=== PATIENT | female | born 1990 | race Caucasian/White ===

== ENCOUNTER 2017-12-01 17:06 | Emergency (ER) | payer SELFPAY ==
[~2017-12-01] VITALS: Ht 168.9 cm; Wt 81.2 kg
[~2017-12-01 17:06] MED LIST: HUMALOG100 UNIT/1 SC; JARDIANCE PO; LANTUS 3ML100 UNITS/ SC; LANTUS SQ; METFORMIN HCL500 MG PO
[2017-12-01] MEDS ORDERED: SODIUM CHLORIDE 0.9% 1000ML 1,000 ML IV STA (17:17)
[2017-12-01] MEDS ORDERED: HYDROCODONE/APAP 7.5MG-325MG 1 EA TAB PO ONE (17:30)
[2017-12-01] MEDS ORDERED: FAMOTIDINE 20 MG/2 ML VIAL IV ONE (17:30)
[2017-12-01] MEDS ORDERED: PROMETHAZINE 25MG/ NS 50ML (IV) IV ONE (17:30)
[2017-12-01] MEDS ORDERED: KETOROLAC TROMETHAMINE 30 MG/ML VIAL IV ONE (17:30)
--- NOTE | 2017-12-01 18:02 | Diagnostic Imaging Report ---
History: Photophobia. Headaches, neck pain Comparison studies: None Technique: Axial images were obtained from the skull base to the vertex. Coronal and sagittal reconstructions obtained from the axial data. Findings: Scalp/skull: No abnormalities. No fractures, blastic or lytic lesions. Extra-axial spaces: No masses. No fluid collections. Brain sulci: Appropriate for age. Ventricles: Normal in size and configuration. No hydrocephalus. Parenchyma: No abnormal densities. No masses, hemorrhage, acute or chronic cortical vascular insults. Sellar/suprasellar region: No abnormalities Craniocervical junction: Patent foramen magnum. No Chiari one malformation. IMPRESSION: No abnormalities . Signed by: DR Andrea Chiang M.D. on 12/01/2017 5:59 PM
[2017-12-01 18:03] LABS: BASOPHILS % 0.3 % (0.0-1.0); EOSINOPHILS # (AUTO) 0.2 (0.0-0.4); HEMATOCRIT 39.4 % (34.2-44.1); HEMOGLOBIN 13.8 g/dL (12.0-16.0); LYMPHOCYTES # (AUTO) 1.9 (1.0-3.2); MEAN CORPUSCULAR HEMOGLOBIN 32.4 pg (28-32); MEAN CORPUSCULAR VOLUME 92.5 fL (81-99); MONOCYTES # (AUTO) 0.6 (0.2-0.8); MONOCYTES % 5.2 % (4.4-11.3); NEUTROPHILS # (AUTO) 7.9 (2.1-6.9); NEUTROPHILS % 74.2 % (38.7-80.0); PLATELET COUNT 253 x10e3/uL (140-360); RED BLOOD COUNT 4.26 x10e6/uL (3.6-5.1); RED CELL DISTRIBUTION WIDTH 11.9 % (11.7-14.4)
[2017-12-01 18:21] LABS: ALANINE AMINOTRANSFERASE 15 IU/L (0-55); ALBUMIN 3.9 g/dL (3.5-5.0); ALBUMIN/GLOBULIN RATIO 1.3 (0.8-2.0); ALKALINE PHOSPHATASE 67 IU/L (40-150); ANION GAP 14.9 mmol/L (8-16); BLOOD UREA NITROGEN 7 mg/dL (7-26); BUN/CREATININE RATIO 10 (6-25); CALCIUM 9.4 mg/dL (8.4-10.2); CARBON DIOXIDE 22 mmol/L (22-29); CHLORIDE 106 mmol/L (98-107); CREATININE, SERUM 0.68 mg/dL (0.57-1.11); EST GLOMERULAR FILTRATION RATE > 60 ML/MIN (60-); GLUCOSE 162 mg/dL (74-118); POTASSIUM 3.9 mmol/L (3.5-5.1); SODIUM 139 mmol/L (136-145)
[2017-12-01 19:17] LABS: BILIRUBIN,URINE NEGATIVE (NEGATIVE); CLARITY,URINE SL CLOUDY (CLEAR); COLOR,URINE YELLOW (YELLOW); KETONES,URINE 1+ (NEGATIVE); LEUKOCYTE ESTERASE ,URINE TRACE (NEGATIVE); NITRITE,URINE NEGATIVE (NEGATIVE); PROTEIN,URINE DIPSTICK NEGATIVE (NEGATIVE); URINE UROBILINOGEN 0.2 mg/dL (0.2 - 1)
[2017-12-01 19:28] LABS: BACTERIA,URINE MODERATE /HPF; EPITHELIAL CELLS,URINE MANY /LPF; MUCUS,URINE MODERATE (RARE)
[2017-12-01] MEDS ORDERED: CEFTRIAXONE SOD 1 GM VIAL IV ONE (20:00)
[2017-12-01 20:03] VITALS: BP 108/64
== END 2017-12-01 20:13 | disposition home or self-care (01) ==
LOC: ER 17:06
DX: G44.211 Episodic tension-type headache, intractable (principal); R11.0 Nausea; K52.9 Noninfective gastroenteritis and colitis, unspecified; N30.90 Cystitis, unspecified without hematuria; E10.9 Type 1 diabetes mellitus without complications; E78.5 Hyperlipidemia, unspecified; K86.9 Disease of pancreas, unspecified
CPT/HCPCS: 36415; 70450; 80053; 81001; 84702; 85025; 99284; J0696; J1885; J2550; J7030

== ENCOUNTER 2018-07-22 19:43 | Emergency (ER) | payer BC, OTHER ==
[~2018-07-22] VITALS: Ht 167.6 cm; Wt 84.9 kg
--- OUTSIDE RECORDS SUMMARY | 2018-07-22 19:46 | XMS REPORT ---
Author Author Admin, [place] Organization [facility] Address [address] [place] [id number] Phone Allergies, Adverse Reactions, Alerts Allergy Name Reaction Description Start Date Severity Status Provider Allergies Unknown Conditions or Problems Problem Name Problem Code Onset Date Status Entry Date Provider Comment Standard Description Annotate Problems Unknown Medication List Medication Instructions Start Date Stop Date Generic Name NDC Status Provider Patient Instruction Drug Treatment Unknown - unknown
--- OUTSIDE RECORDS SUMMARY | 2018-07-22 19:46 | XMS REPORT ---
Author [facility] Address Unknown Phone Unavailable Care Team Providers Care Conveyor Loader Name Role Phone Lina SALGADO Unavailable Unavailable Payers Payer Name Policy Type Policy Number Effective Date Expiration Date Problems This patient has no known problems. Allergies, Adverse Reactions, Alerts Allergy Name Allergy Type Status Severity Reaction(s) Onset Date Inactive Date Treating Clinician Comments No Known Allergies DA Active U 2013-07-26 00:00:00 Medications This patient has no known medications. Results Test Description Test Time Test Comments Text Results Atomic Results Result Comments CT BRAIN WO 2017-12-01 17:57:00 [place] [address] Patient Name: MARY JO PORTILLO MR #: [id number] : 1990 Age/Sex: 27/F Req #: [id number] Adm Physician: Ordered by: GABRIELLA CASTORENA MD Report #: [id number] Location: ER Room/Bed: Procedure: [id number] CT/CT BRAIN WO Exam Date: 12/01/17 Exam Time: 1726 REPORT STATUS: Signed ADDENDUM #1 Dose modulation, iterative reconstruction, and/or weight based adjustment of the mA/kV was utilized to reduce the radiation dose to as low as reasonably achievable. IMPRESSION: No abnormalities . Signed by: DR Andrea Chiang M.D. on 12/30/2017 12:17 PM ORIGINAL REPORT History: Photophobia. Headaches, neck pain Comparison studies: None Technique: Axial images were obtained from the skull base to the vertex. Coronal and sagittal reconstructions obtained from the axial data. Findings: Scalp/skull: No abnormalities. No fractures, blastic or lytic lesions. Extra-axial spaces: No masses. No fluid collections. Brain sulci: Appropriate for age. Ventricles: Normal in size and configuration. No hydrocephalus. Parenchyma: No abnormal densities. No masses, hemorrhage, acute or chronic cortical vascular insults. Sellar/suprasellar region: No abnormalities Craniocervical junction: Patent foramen magnum. No Chiari one malformation. IMPRESSION: No abnormalities . Signed by: DR Andrea Chiang M.D. on 12/01/2017 5:59 PM Dictated By: ANDREA YUSUF MD [id number] Transcribed By: GIGI on 12/01/17 [id number] COPY TO: GABRIELLA CASTORENA MD
[2018-07-22] MEDS ORDERED: OXYCODONE-ACET1 EAC1 PO (20:14)
[2018-07-22 21:23] VITALS: BP 114/72
== END 2018-07-22 20:43 | disposition home or self-care (01) ==
LOC: FSED 19:43
DX: L02.31 Cutaneous abscess of buttock (principal); E11.9 Type 2 diabetes mellitus without complications; F17.210 Nicotine dependence, cigarettes, uncomplicated
CPT/HCPCS: 99282

== ENCOUNTER 2019-10-12 19:26 | Emergency (ER) | payer BC, OTHER ==
[~2019-10-12] VITALS: Ht 167.6 cm; Wt 84.8 kg
[~2019-10-12 19:26] MED LIST changes: +OXYCODONE-ACET1 EAC1 PO
--- OUTSIDE RECORDS SUMMARY | 2019-10-12 19:28 | XMS REPORT | Clinical Summary ---
Author Author [facility] Address Unknown Phone Unavailable Care Team Providers Care Energy Consultant Name Role Phone Brooklyn Salamanca MD PCP Allergies No Known Allergies Medications End Date Status Medication Sig Dispensed Refills Start Date Active meloxicam (MOBIC) 15 mg Take 1 tablet 10 tablet 0 tablet (15 mg total) 9 by mouth daily as needed for mild pain for up to 10 doses. Active insulin GLARGINE (LANTUS 40-52 units 0 04/06 SOLOSTAR U-100 INSULIN) at bedtime 8 100 unit/mL injection (pen) Active insulin lispro (HumaLOG as directed 0 KwikPen Insulin) 100 sliding scale 9 unit/mL injection pen Active oxyCODone-acetaminophen 1 tablet as 0 (PERCOCET) 10-325 mg per needed 9 tablet Active clonAZEPAM (KlonoPIN) 1 1 tablet as 0 MG tablet needed 9 12/30/2018 clindamycin (CLEOCIN HCL) Take 1 40 capsule 0 300 MG capsule capsule (300 9 mg total) by mouth 4 (four) times a day for 10 days. 12/23/2018 acetaminophen-codeine Take 1 tablet 10 tablet 0 (TYLENOL WITH CODEINE #3) by mouth 9 300-30 mg per tablet every 6 (six) hours as needed for moderate pain for up to 10 doses. 03/14/2019 acetaminophen-codeine Take 1-2 6 tablet 0 11/0 (TYLENOL WITH CODEINE #3) tablets by 9 300-30 mg per mouth every 6 tabletIndications: acute (six) hours pain as needed for moderate pain for up to 2 days .Acute Pain. 04/11/2019 benzonatate (TESSALON) Take 1 21 capsule 0 11/ 08/201 100 MG capsule capsule (100 9 mg total) by mouth every 8 (eight) hours for 30 days. Active Problems Not on file Encounters Care Team Description Date Type Specialty Gudelia Murray MD Lumbar back pain (Primary Dx) 03/12/2019 Emergency Emergency Medicine Vini Irvin, Conor Mills MD Abscess of left groin (Primary Dx) 12/19/2018 Emergency Emergency Medicine - 12/20/2018 after 10/11/2018 Family History Medical History Relation Name Comments Diabetes Mother Relation Name Status Comments Mother Social History Date Tobacco Use Types Packs/Day Years Used Heavy Tobacco Smoker Smokeless Tobacco: Never Used Drinks/Week oz/Week Comments Alcohol Use socially Yes Sex Assigned at Date Recorded Not on file Industry Job Start Date Occupation Not on file Not on file Not on file Travel End Travel History Travel Start No recent travel history available. Last Filed Vital Signs Reading Time Taken Comments Vital Sign 107/66 03/12/2019 9:29 PM PHOTOGRAPHIC ENGINEER Blood Pressure 115 03/12/2019 9:29 PM PHOTOGRAPHIC ENGINEER Pulse 37.3 C (99.2 F) 03/12/2019 9:29 PM PHOTOGRAPHIC ENGINEER Temperature 18 03/12/2019 9:29 PM PHOTOGRAPHIC ENGINEER Respiratory Rate 97% 03/12/2019 9:29 PM PHOTOGRAPHIC ENGINEER Oxygen Saturation - - Inhaled Oxygen Concentration 87.1 kg (192 lb) 03/12/2019 7:12 PM PHOTOGRAPHIC ENGINEER Weight 167.6 cm (5' 6") 03/12/2019 7:12 PM PHOTOGRAPHIC ENGINEER Height 30.99 03/12/2019 7:12 PM PHOTOGRAPHIC ENGINEER Body Mass Index Plan of Treatment Not on file Procedures Comments Procedure Name Priority Date/Time Associated Diag nosis ED REFERRAL TO [facility] Routine 03/12/2019 [facility] 9:26 PM PHOTOGRAPHIC ENGINEER ORGANIZATION [place] DRAIN SKIN ABSCESS Routine 12/20/2018 SIMPLE 1:45 AM CDT ESTIMATED GFR STAT 12/20/2018 12:35 AM CDT HCG QUALITATIVE, SERUM STAT 12/20/2018 SCREEN 12:35 AM CDT COMPREHENSIVE METABOLIC STAT 12/20/2018 PANEL 12:35 AM CDT HC COMPLETE BLD COUNT STAT 12/20/2018 W/AUTO DIFF 12:35 AM CDT after 10/11/2018 Results * I&D/Aspiration/Amputation (12/20/2018 1:45 AM CDT) Narrative Performed At Vini Irvin NP-C 12/22/19 19 1:40 AM I&D/Aspiration/Amputation Performed by: Vini Irvin NP-C Authorized by: Vini Irvin NP- C Consent: Consent obtained: Verbal Consent given by: Patient Risks discussed: Bleeding, damage t o other organs, infection, incomplete drainage and pain Alternatives discussed: No treatmen t and delayed treatment Location: Type: Abscess Location: left groin. Pre-procedure details: Skin preparation: Betadine Anesthesia (see MAR for exact dosages): Anesthesia method: Local infiltrati on Local anesthetic: Lidocaine 1% WITH epi (3ml) Procedure details: Complexity: Simple Needle aspiration: No Incision types: Single straight Size (cm): 1 Scalpel blade: 11 Wound management: Irrigated with sa line and probed and deloculated Drainage: Bloody and purulent Drainage amount: Moderate Wound treatment: Wound left open Packing materials: None Post-procedure details: Patient tolerance of procedure: Herber erated well, no immediate complications Comments: 1cm cutaneous incision to two absces s with moderate bloody, purulent drainage 2cm abscess, scant bloody, pur ulent drainage 1cm abscess. Kaylin Cruz RN and Nael Storey was funeral pre arrangement counselor e and entered the room before provider, was with the provider through out the entire procedure and remained in room after provider left e room after exam was completed. * Estimated GFR (12/20/2018 12:35 AM CDT) Estimated GFR >=90 mL/min/1.73 m2 [facility] Comment: [facility] Interpretation G1 >=90 Normal or high G2 60-89 Mildly decreased G3a 45-59 Mildly to moderately decreased G3b 30-44 Moderately to severely decreased G4 15-29 Severely decreased G5 <15 Kidney failure The eGFR was calculated using the Chronic Kidney Disease Epidemiology Collaboration (CKD-EPI) equation. Interpretation is based on recommendations of the National Kidney Foundation-Kidney Disease Outcomes Quality Initiative (NKF-KDOQI) published in 2014. Specimen Plasma specimen Performing Organization Address City/State/Zipcode [place] [address] [place], [place] [address] PATHOLOGY AND GENOMIC MEDICINE [facility] [address] [place] [address] [facility] * CBC with platelet and differential (12/20/2018 12:35 AM CDT) WBC 12.27 (H) 4.50 - 11.00 k/uL [facility] RBC 3.98 (L) 4.20 - 5.50 m/uL [facility] HGB 12.7 12.0 - 16.0 g/dL [facility] HCT 38.9 37.0 - 47.0 % [facility] MCV 97.7 82.0 - 100.0 fL [facility] MCH 31.9 27.0 - 34.0 pg [facility] MCHC 32.6 31.0 - 37.0 g/dL [facility] RDW - SD 44.1 37.0 - 55.0 fL [facility] MPV 9.1 8.8 - 13.2 fL [facility] Platelet count 298 150 - 400 k/uL [facility] Nucleated RBC 0.00 /100 WBC [facility] Neutrophils 53.9 39.0 - 69.0 % [facility] Lymphocytes 37.8 25.0 - 45.0 % [facility] Monocytes 5.4 0.0 - 10.0 % [facility] Eosinophils 2.4 0.0 - 5.0 % [facility] Basophils 0.2 0.0 - 1.0 % [facility] Specimen Blood Performing Organization Address City/State/Zipcode Ph one Number [facility] [place] [address] [place], [place] [address] PATHOLOGY AND GENOMIC MEDICINE [facility] [address] [place] [address] [facility] * hCG qualitative, serum screen (12/20/2018 12:35 AM CDT) hCG Negative [facility] Specimen Blood Performing Organization Address City/State/Zipcode Ph one Number [facility] [place] [address] [place], [place] [address] PATHOLOGY AND GENOMIC MEDICINE [facility] [address] [place] [address] [facility] * Comprehensive metabolic panel (12/20/2018 12:35 AM CDT) Sodium 139 135 - 148 mEq/L [facility] Potassium 3.7 3.5 - 5.0 mEq/L [facility] Chloride 100 98 - 112 mEq/L [facility] CO2 23 (L) 24 - 31 mEq/L [facility] Anion gap 16@ANIO (H) 7 - 15 mEq/L [facility] BUN 6 6 - 20 mg/dL [facility] Creatinine 0.50 0.50 - 0.90 mg/dL [facility] Glucose 202 (H) 65 - 99 mg/dL [facility] Calcium 9.8 8.3 - 10.2 mg/dL [facility] Protein 7.3 6.3 - 8.3 g/dL [facility] Comment: [facility] 4.6-7.0 g/dL 1 week 4.4-7.6 g/dL 7 months-1year 5.1-7.3 g/dL 1-2 years 5.6-7.5 g/dL >3 years 6.0-8.0 g/dL 18-150 6.3-8.3 g/dL Albumin 4.7 3.5 - 5.0 g/dL [facility] A/G ratio 1.8 0.7 - 3.8 [facility] Alkaline 102 35 - 104 U/L [facility] phosphatase [facility] AST 14 10 - 35 U/L [facility] ALT 23 5 - 50 U/L [facility] Total bilirubin <0.2 0.0 - 1.2 mg/dL [facility] Specimen Plasma specimen Performing Organization Address City/State/Zipcode [place] [facility] 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
--- OUTSIDE RECORDS SUMMARY | 2019-10-12 19:29 | XMS REPORT ---
Author Author Admin, [place] Organization [facility] Address [address] [place] [address] Phone Allergies, Adverse Reactions, Alerts Allergy Name Reaction Description Start Date Severity Status Pr ovider No Known Allergies Lillian Choe MA Conditions or Problems Problem Name Problem Code Onset Date Status Entry Date Provider Comment Standard Description Annotate Health screening V70.0 Active Caitlin Reyna RN Routine general medical examination at a health care facility Candidal vaginitis 112.1 Active Castro Sepulveda MD Candidiasis of vulva and vagina Diabetes mellitus 250.00 Active Castro Sepulveda MD Diabetes mellitus without mention of complication, type II or unspecified type, not stated as uncontrolled Std screening V74.5 Active Castro Sepulveda MD Screening examination for venereal disease Tobacco use Active Castro Sepulveda MD Tobacco use disorder Medication List Medication Instructions Start Date Stop Date Generic Name NDC Status Provider Patient Instruction VALTREX 500 MG ORAL TABLET 1 pill twice a day for 3 days VALACYCLOVIR HCL 07941547990 Active Castro Sepulveda MD Active FLAGYL 500 MG ORAL TABLET 1 tab by mouth twice a day for 7 days 201 12/13/04 METRONIDAZOLE 01463994079 Active Castro Sepulveda MD Active DIFLUCAN 150 MG ORAL TABLET 1 by mouth FLUCONAZOL E 38448379906 Yaya Sepulveda MD Active INSULIN SYRINGE 28G X 1/2" 0.5 ML IN SULIN SYRINGE-NEEDLE U-100 70989736154 Active Castro Sepulveda MD Active Vital Signs Date Name Value Unit Range Description blood pressure, diastolic 74 mm[Hg] BP brothers blood pressure, systolic 112 mm[Hg] BP sys height E&M 67 [in_us] Bdy height pulse rate E&M 77 /min Heart rate temperature E&M 98.1 [degF] Body temp erature weight E&M 187 [lb_av] Weight Measure d Diagnostic Results Date Name Value Unit Range Description Lab Report: Ct, Ng, Trich vag by COOPER - M icrobiology Neisseria gonorrhoeae DNA probe Negative Nega tive Lab Report: HSV 1 and 2-Spec Ab, IgG w/R fx, RPR, Rfx Qn RPR/Confirm TP, ... - Serology HERPES SIMPLEX VIRUS TYPE 1 AB.IGG (PT; SER; QN; ) 5.3 4 index 0.00-0.90 Lab Report: hCG,Beta Subunit, Qnt, Serum - Chemistry human chorionic gonadotropin, total, serum <1 mIU/mL m[iU ]/mL Lab Report: Ct, Ng, Trich vag by COOPER - L ab chlamydia DNA probe Negative Negative Nurse Visit: Nurse Visit - Chemistry beta HCG, urine, semiquantitative negative Lab Report: HSV 1 and 2-Spec Ab, IgG w/R fx, RPR, Rfx Qn RPR/Confirm TP, ... - Serology rapid plasma reagin antibody, serum Non Reactive Non Reactive Lab Report: Ct/GC [facility], Pharyngeal - Micr obiology Neisseria gonorrhoeae, throat culture Negative Negative Encounters Date Encounter Provider Code Facility 15:54:23 CDT Est Patient Nurse - Only Visit - 24260 Chelle Reyna RN CPT-92969 [facility] Adult Medicine 10:37:58 CDT Ofc Vst, New Level II Castro Sepulveda MD CPT-992 02 [facility] Adult Medicine
--- OUTSIDE RECORDS SUMMARY | 2019-10-12 19:29 | XMS REPORT | Summary of Care ---
Author Author [facility] - Health Organization [facility] - Health Address Unknown Phone Unavailable Care Team Providers Care Tap Puller Name Role Phone Pcp, Patient Does Not Have A PCP [phone] Reason for Visit * Reason Comments Abscess Encounter Details Care Team Description Date Type Department Shaun Courtney [address] [facility] [id number] [place], [place] [address] Perineal abscess (Primary Dx) 12/24/2018 Office Visit [facility], [address], [facility] [address] [place] [address] Allergies No Known Allergiesdocumented as of this encounter (statuses as of 12/30/2018) Medications End Date Status Medication Sig Dispensed Refills Start Date Active LANTUS U-100 INSULIN 100 INJECT 50 1 08/18 unit/mL solution UNITS SQ D 9 Active HUMALOG U-100 INSULIN 100 INJECT UP TO 1 08/03 unit/mL solution 20 UNITS SQ 9 TID Active metroNIDAZOLE 500 mg Take 1 tablet 14 tablet 0 tabletIndications: by mouth 2 9 Vaginitis and (two) times vulvovaginitis daily. Active clotrimazole-betamethason Apply to 15 g 0 e creamIndications: area(s) 2 9 Vaginal irritation (two) times daily as needed for Itching. Active oxyCODONE-acetaminophen TAKE 1 TABLET 0 10-325 mg per tablet BY MOUTH 9 EVERY FOUR HOURS NEEDED Active fluconazole 150 mg tablet TK 1 TS PO Q 0 / 72 H 9 Active clonazePAM 1 mg tablet TAKE 1 TABLET 0 08/31/ 01 BY MOUTH 9 TWICE DAILY NEEDED Active FREESTYLE TEST strip USE TO CHECK 3 BLOOD SUGAR 9 QID Active CHANTIX STARTING MONTH 0 BOX 0.5 mg (11)- 1 mg 9 (42) tablet Active CLINDAMYCIN HCL ORAL Take by 0 mouth. documented as of this encounter (statuses as of 12/30/2018) Active Problems Problem Noted Date Obesity (BMI 30-39.9) 12/24/2018 documented as of this encounter (statuses as of 12/30/2018) Social History Date Tobacco Use Types Packs/Day Years Used Current Every Day Smoker Cigarettes 0.5 Smokeless Tobacco: Never Used Drinks/Week oz/Week Comments Alcohol Use No Sex Assigned at Date Recorded Not on file Industry Job Start Date Occupation Not on file Not on file Not on file Travel End Travel History Travel Start No recent travel history available. documented as of this encounter Last Filed Vital Signs Reading Time Taken Comments Vital Sign 100/65 12/24/2018 9:45 AM CDT Blood Pressure - - Pulse - - Temperature - - Respiratory Rate - - Oxygen Saturation - - Inhaled Oxygen Concentration 91.2 kg (201 lb) 12/24/2018 9:45 AM CDT Weight 170.2 cm (5' 7") 12/24/2018 9:45 AM CDT Height 31.48 12/24/2018 9:45 AM CDT Body Mass Index documented in this encounter Progress Notes * Naina Tai MA - 12/24/2018 9:30 AM CDT Abcess onset past Friday between butt cheek and groin underneath skin PT went to [facility] ER and lanced above abcess and only drained bloody discharge PT reports was not compliant when being drained , cried and moved a lot PT declines on lancing today and is requesting for meds prior PT taking antibiotics * Shaun Courtney - 12/24/2018 9:30 AM CDT Chief complaint: Chief Complaint Patient presents with Abscess Natali Garcia is a 28 year old female who presents complaining of a vaginal abcess status post ER visit 12/19/2018 where the abcess was lanced. Patient decli ronal lancing today as she had a bad experience with pain during previous lancing in the ER. Histories OB History Para Term AB Living 1 1 1 SAB TAB Ectopic Multiple Live Births 1 # Outcome Date GA Lbr James/2nd Weight Sex Delivery Anes PTL Lv 1 Para 04/28/07 F VAGINAL KENYON Past Medical History: Diagnosis Date Abscess 07/2018 Diabetes mellitus Genital herpes Pap smear abnormality of cervix Family History Problem Relation Age of Onset Diabetes Mother Ovarian Cancer Maternal Grandmother Diabetes Maternal Grandmother Breast Cancer Paternal Grandmother Colon Cancer NoFHx Uterine Cancer NoFHx Depression NoFHx Family Status Relation Name Status Mo (Not Specified) MGMo (Not Specified) PGMo (Not Specified) NoFHx (Not Specified) Past Surgical History: Procedure Laterality Date APPENDECTOMY BACK SURGERY COLON SURGERY Social History Socioeconomic History Marital status: Single Spouse name: Not on file Number of children: Not on file Years of education: Not on file Highest education level: Not on file Occupational History Not on file Social Needs Financial resource strain: Not on file Food insecurity: Worry: Not on file Inability: Not on file Transportation needs: Medical: Not on file Non-medical: Not on file Tobacco Use Smoking status: Current Every Day Smoker Packs/day: 0.50 Types: Cigarettes Smokeless tobacco: Never Used Substance and Sexual Activity Alcohol use: No Drug use: No Sexual activity: Never Partners: Male control/protection: None Comment: BUDDY- Geovanna Lifestyle Physical activity: Days per week: Not on file Minutes per session: Not on file Stress: Not on file Relationships Social connections: Talks on phone: Not on file Gets together: Not on file Attends buddhist service: Not on file Active member of club or organization: Not on file Attends meetings of clubs or organizations: Not on file Relationship status: Not on file Intimate partner violence: Fear of current or ex partner: Not on file Emotionally abused: Not on file Physically abused: Not on file Forced sexual activity: Not on file Other Topics Concern Not on file Social History Narrative FEELS SAFE IN HOME ENVIRONMENT Social History Substance and Sexual Activity Sexual Activity Never Partners: Male control/protection: None Comment: BUDDY- Geovanna Labs No new labs Radiology No new radiology. Allergies Natali has No Known Allergies. Medications Natali has a current medication list which includes the following prescription(s) : clindamycin hcl, freestyle test, oxycodone-acetaminophen, humalog u-100 insuli n, lantus u-100 insulin, chantix starting month box, clonazepam, fluconazole, cl otrimazole-betamethasone, and metronidazole. Review of Systems Constitutional: Negative. HENT: Negative. Eyes: Negative. Respiratory: Negative. Breasts: Negative. Cardiovascular: Negative. Gastrointestinal: Negative. Genitourinary: Positive for genital sores. Musculoskeletal: Negative. Skin: Negative. Neurological: Negative. Psychiatric/Behavioral: Negative. Endocrine: Endocrine negative BP 100/65 | Ht 5' 7" (1.702 m) | Wt 201 lb (91.2 kg) | BMI 31.48 kg/m Pregravid BMI: Could not be calculated Physical Exam Vitals reviewed. Constitutional: She is oriented to person, place, and time. She appears well-dev eloped, well-nourished and well-groomed. Her body habitus is normal. She has no deformities. Neuro/Psychiatric: She has a normal mood and affect. She is oriented to person, place, and time. Anus/perineum: Abnormal perineum. 3 cm left perineal abcess tender to touch. Assessment/Plan Perineal abscess (primary encounter diagnosis) Comment: Exam shows 3 cm left perineal abcess tender to touch. Findings explained to taco ent. Patient declines lancing today. Requested procedure to be done under genera l anesthesia. Patient sent to ER. This visit involved counseling and coordination of care that comprised more than 50% of the visit time. I spent 15 minute(s) total time with the patient. Of t hat time, 5 minute(s) was spent on history and exam, and 10 minute(s) was spent counseling the patient regarding risks and benefits of treatment, treatment opti ons and prevention. Misa Dewitt , am scribing for, and in the presence of, Shaun duvall MD who performed the services described here-in. Misa Golden, December 24, 2018, 7:58 AM Shaun Dewitt MD, personally performed the services described in this doc umentation , as scribed in my presence and it is both accurate and complete. documented in this encounter Plan of Treatment Health Maintenance Due Date Last Done Comments PNEUMOCOCCAL 0-64 YEARS 1994 COMBINED SERIES (1 of 1 - PPSV23) VARICELLA VACCINES (1 of 2001 2 - 13+ 2-dose series) DTaP,Tdap,and Td Vaccines 2007 (1 - Tdap) INFLUENZA VACCINE (#1) 2019 PAP SMEAR 09/25/2021 09/25/2018 documented as of this encounter Results Not on filedocumented in this encounter Visit Diagnoses Diagnosis Perineal abscess - Primary Cellulitis and abscess of trunk documented in this encounter Insurance Type Payer Benefit Subscriber ID Effective Phone Address Plan / Dates Group Medicaid COMMUNITY HEALTH CHOICE - COMMUNITY xxxxxxxxx 2018-P [address] MANAGED MEDICAID HEALTH resent [id number] [place], [place] [address] PPO/POS BCBS OF [place] BCBS OF [id number] 2018-P [phone] [address] [facility] [address] [place] [address] documented as of this encounter
--- OUTSIDE RECORDS SUMMARY | 2019-10-12 19:29 | XMS REPORT | Summary of Care ---
Author Author [facility] - Health Organization [facility] - Health Address Unknown Phone Unavailable Care Team Providers Care Pocket Closer Name Role Phone Pcp, Patient Does Not Have A PCP [phone] Reason for Visit * Reason Comments Abscess * Auth/Cert Referred By Contact Referred To Contact Status Reason Specialty Diagnoses / Procedures [facility] Emergency Dept [address] [place] [address] Emergency Medicine Encounter Details Care Team Description Date Type Department Susanne Sorenson, KYLIE [address] [facility] [address] [place] [address] Perineal abscess, superficial (Primary D x) 12/24/2018 Emergency [facility] [address] [place] [address] Allergies No Known Allergiesdocumented as of this encounter (statuses as of 12/24/2018) Medications End Date Status Medication Sig Dispensed [...] 1 mg tablet TAKE 1 TABLET 0 01 BY MOUTH 9 TWICE DAILY NEEDED Active FREESTYLE TEST strip USE TO CHECK 3 BLOOD SUGAR 9 QID Active CHANTIX STARTING MONTH 0 BOX 0.5 mg (11)- 1 mg 9 (42) tablet Active CLINDAMYCIN HCL ORAL Take by 0 mouth. 01/03/2019 Active sulfamethoxazole-trimetho Take 1 tablet 20 tablet 0 prim 800-160 mg per by mouth 2 9 tabletIndications: (two) times Perineal abscess, daily for 10 superficial days. Active traMADol 50 mg Take 1 tablet 15 tablet 0 tabletIndications: by mouth 9 Perineal abscess, every 6 (six) superficial hours as needed for Pain (scale 4-6). documented as of this encounter (statuses as of 12/24/2018) Active Problems Problem Noted Date Obesity (BMI 30-39.9) 12/24/2018 documented as of this encounter (statuses as of 12/24/2018) Social History Date Tobacco Use Types Packs/Day [...] Signs Reading Time Taken Comments Vital Sign 102/68 12/24/2018 2:15 PM CDT Blood Pressure 80 12/24/2018 2:15 PM CDT Pulse 36.8 C (98.2 F) 12/24/2018 11:47 AM CDT Temperature 16 12/24/2018 2:15 PM CDT Respiratory Rate 98% 12/24/2018 2:21 PM CDT Oxygen Saturation - - Inhaled Oxygen Concentration 91.2 kg (201 lb) 12/24/2018 11:47 AM CDT Weight 170.2 cm (5' 7") 12/24/2018 11:47 AM CDT Height 31.48 12/24/2018 11:47 AM CDT Body Mass Index documented in this encounter Discharge Instructions * Attachments The following attachments cannot be sent through Care Everywhere.* Abscess, Antibiotic Treatment Only (Prydeinig) * Abscess, Incision And Drainage (Prydeinig) documented in this encounter Plan of Treatment Date/Time Name Type Priority Associated Diag noses 12/24/2018 11:54 AM CDT I and D PROCEDURES Routine Perineal absces s, superficial Health Maintenance Due Date Last Done Comments PNEUMOCOCCAL 0-64 YEARS 1994 COMBINED SERIES (1 of 1 - PPSV23) VARICELLA VACCINES (1 of 2001 2 - 13+ 2-dose series) DTaP,Tdap,and Td Vaccines 2007 (1 - Tdap) INFLUENZA VACCINE (#1) 2019 PAP SMEAR 09/25/2021 09/25/2018 documented as of this encounter Procedures Comments Procedure Name Priority Date/Time Associated Diag nosis INCISION AND DRAINAGE Routine 12/24/2018 Perineal abscess, 11:54 AM CDT superficial documented in this encounter Results Not on filedocumented in this encounter Visit Diagnoses Diagnosis Perineal abscess, superficial - Primary Cellulitis and abscess of trunk documented in this encounter Administered Medications Action Date Dose Rate Site Medication Order MAR Action 12/24/2018 2:00 PM CDT 10 mL lidocaine-epinephrine (XYLOCAINE WITH Given by EPINEPHRINE) 1 %-1:100,000 injection 10 Provider mL 10 mL, Intradermal, ONCE, 1 dose, [facility] 12/24/18 at 1400, CYRUS 12/24/2018 1:35 PM CDT 4 mg morpHINE injection 4 mg Given 4 mg, Slow IV Push, ONCE, 1 dose, [facility] 12/24/18 at 1400, STAT documented in this encounter Insurance Type Payer Benefit Subscriber ID Effective Phone Address Plan / Dates Group Medicaid COMMUNITY HEALTH CHOICE - COMMUNITY xxxxxxxxx 2018-P [address] MANAGED MEDICAID HEALTH resent [id number] [place], [place] [address] PPO/POS BCBS OF [place] BCBS OF [id number] 2018-P [phone] [address] [facility] [id number] [place] [address] documented as of this encounter
--- OUTSIDE RECORDS SUMMARY | 2019-10-12 19:29 | XMS REPORT | Summary of Care ---
Author Author [facility] - Health Organization [facility] - Health Address Unknown Phone Unavailable Care Team Providers Care Fleet Service Clerk Name Role Phone Pcp, Patient Does Not Have A PCP [phone] Reason for Visit * Reason Comments Abscess Encounter Details Care Team Description Date Type Department Shaun Courtney [address] [facility] [id number] [place], [place] [id number] Perineal abscess (Primary Dx) 12/24/2018 Office Visit [facility], [address], [facility] [address] [place] [address] Allergies No Known Allergiesdocumented as [...] and groin underneath skin PT went to [facility] ER and lanced above abcess and [...] file Gets together: Not on file Attends latter-day service: Not on file Active member of [...] 2018-P [address] MANAGED MEDICAID HEALTH resent [id number] [place], [place] [address] PPO/POS BCBS OF [place] BCBS OF [id number] 2018-P [phone] [address] [facility] [id number] [place] [address] documented as of this encounter
--- OUTSIDE RECORDS SUMMARY | 2019-10-12 19:29 | XMS REPORT | Continuity of Care Document ---
Author Author [facility] t Organization [facility] Address [address] [place] [address] Phone Unavailable Care Team Providers Care Commercial Property Administrator Name Role Phone Gonzalez HENSLEY MD PCP Terri DOWD, Duglas Galeas Attphys [phone] Shaun Courtney Attphys Albaro PRIVATE SECTOR EXECUTIVE-C, Sohail Martini Attphys Mara DOWD, Birgit Perdomo Attphys Lina SALGADO Attphys Unavailable Payers Payer Name Policy Type Policy Number Effective Date Expiration Date [facility] [id number] xxxxxxxxx 2018 [id number] 2016 00:00:00 [facility] Problems Condition Name Condition Details Condition Category Status Onset Date Resolution Date Last Treatment Date Treating Clinician Comments Source Diabetic ketoacidosis DKA (diabetic ketoacidoses) Problem Active [facility] Dehydration Dehydration Problem Active [facility] Allergies, Adverse Reactions, Alerts Allergy Name Allergy Type Status Severity Reaction(s) Onset Date Inacti ve Date Treating Clinician Comments Source No Known Allergies DA Active U 2013-07-26 00:00:00 [facility] Family History Family Member Diagnosis Comments Start Date Stop Date Source Natural mother Diabetes [facility] Social History Social Habit Start Date Stop Date Quantity Comments Source Sex Assigned [facility] Alcohol intake 2019-03-12 00:00:00 2019-03-12 00:00:00 Current drinker of alcohol (finding) Norberto Burnette Alcohol Comment 2019-03-12 00:00:00 2019-03-12 00:00:00 socially Norberto Burnette Smoking Status Start Date Stop Date Source Heavy tobacco smoker 2019-03-12 00:00:00 Norberto Burnette Medications Ordered Medication Name Filled Medication Name Start Date Stop Da te Current Medication? Ordering Clinician Indication Dosage Frequency Signature (SIG) Comments Components Source benzonatate (TESSALON) 100 MG capsule 2019-03-12 00:00 :00 2019-04-11 23:59:00 No 100mg Q8H Take 1 capsule (100 mg total) by mouth every 8 (eight) hours for 30 days. Norberto Burnette acetaminophen-codeine (TYLENOL WITH CODEINE #3) 300-30 mg pe r tablet 2019-03-12 00:00:00 2019-03-14 23:59:00 No acute pain 1{tbl} Q6H Take 1-2 tablets by mouth every 6 (six) hours as needed for moderate pain for up to 2 days .Acute Pain. Norberto Burnette meloxicam (MOBIC) 15 mg tablet 2018-12-20 00:00:00 Yes 15mg Q24H Take 1 tablet (15 mg total) by mouth daily as needed for mild pain for up to 10 doses. Norberto Burnette clindamycin (CLEOCIN HCL) 300 MG capsule 2018-12 00:00:00 2018-12-30 23:59:00 No 300mg Q.25D Take 1 capsule (300 mg total) by mouth 4 (four) times a day for [address] acetaminophen-codeine (TYLENOL WITH CODEINE #3) 300-30 mg pe r tablet 2018-12-20 00:00:00 2018-12-23 23:59:00 No 1{tbl} Q6H Take 1 tablet by mouth every 6 (six) hours as needed for moderate pain for up to 10 doses. Norberto Burnette insulin lispro (HumaLOG KwikPen Insulin) 100 unit/mL injecti on pen 2018-11-18 00:00:00 Yes as directed sliding scale Norberto Burnette oxyCODone-acetaminophen (PERCOCET) 10-325 mg per tablet 2018-09-15 00:00:00 Yes 1 tablet as needed Brijesh Burnette clonAZEPAM (KlonoPIN) 1 MG tablet 2018-08-31 00:00:00 Yes 1 tablet as needed Norberto Burnette insulin GLARGINE (LANTUS SOLOSTAR U-100 INSULIN) 100 unit/mL injection (pen) 2018-04-06 00:00:00 Yes 40-52 units at bed time Norberto Burnette Insulin Glargine (Lantus 3ML Pen) 100 Units/1 Ml Inj I nsulin Glargine (Lantus 3ML Pen) 100 Units/1 Ml Inj Yes 20 Bedtime [facility] Insulin Lispro (Humalog) 100 Unit/1 Ml Cartridge Insul in Lispro (Humalog) 100 Unit/1 Ml Cartridge Yes 8 Three Times Daily With Meals [facility] Oxycodone Hcl/Acetaminophen (Oxycodone-Acetaminophen 5 -325) 1 Each Tablet Oxycodone Hcl/Acetaminophen (Oxycodone-Acetaminophen 5-325) 1 Each Tablet Yes Every 6 Hours as needed for Pain [facility] Jardiance , 10 Mg Oral Jardiance , 10 Mg Oral 2017-01-21 00:00:00 No 10 Daily [facility] Lantus , 1 Sub-Q Lantus , 1 Sub-Q 2017-01-21 00:00:00 No 1 Bedtime [facility] Metformin Hcl 500 Mg Tablet, 1000 Mg Oral Metformin Hc l 500 Mg Tablet, 1000 Mg Oral 2017-01-21 00:00:00 No 1000 Twice A Day [facility] Vital Signs Vital Name Observation Time Observation Value Comments Source Systolic blood pressure 2019-03-12 21:29:00 107 mm[Hg] Norberto Burnette Diastolic blood pressure 2019-03-12 21:29:00 66 mm[Hg] Norberto Burnette Heart rate 2019-03-12 21:29:00 115 /min Norberto Burnette Body temperature 2019-03-12 21:29:00 37.33 Jalyn Nhan Burnette Respiratory rate 2019-03-12 21:29:00 18 /min Nhan Burnette Oxygen saturation in Arterial blood by Pulse oximetry 2018-05 21:29:00 97 /min Norberto Burnette Body height 2019-03-12 19:12:00 167.6 cm Norberto Burnette Body weight 2019-03-12 19:12:00 87.091 kg Norberto Burnette BMI 2019-03-12 19:12:00 30.99 kg/m2 Norberto Burnette Procedures Procedure Date / Time Performed Performing Clinician [facility] REFERRAL TO [facility]O [facility] 2018 21:26:25 Gudelia Murray [place] DRAIN SKIN ABSCESS SIMPLE 2018-12-20 01:45:00 Vini Irvin HC COMPLETE BLD COUNT W/AUTO DIFF 2018-12-20 00:35:00 Shaka Irvin COMPREHENSIVE METABOLIC PANEL 2018-12-20 00:35:00 Vini Irvin HCG QUALITATIVE, SERUM SCREEN 2018-12-20 00:35:00 Vini Irvin ESTIMATED GFR 2018-12-20 00:35:00 Vini Irvin Computed tomography of brain without radiopaque contrast 201 12-09-29 00:00:00 GABRIELLA CASTORENA [facility] Encounters Start Date/Time End Date/Time Encounter Type Admission Type [facility] Care Department Encounter ID Source 2018-12-24 09:38:45 2018-12-24 10:30:04 [facility] [id number] 2018-07-22 19:43:00 2018-07-22 19:43:00 Registered Emergency Room [facility] [id number] [facility] 2017-12-01 17:06:00 2017-12-01 20:13:00 Departed Emergency Room 1 ABDIAZIZ SALGADO [facility] [id number] [facility] Results Test Description Test Time Test Comments Results Result Comments Source I&D/Aspiration/Amputation 2018-12-20 01:45:00 Vini Stroud NP-C 12/21/2018 1:40 AMI&D/Aspiration/AmputationPerformed by: Vini Irvin NP-CAuthorized by: Vini Irvin NP-C Consent: Consent obtained: Verbal Consent given by: Patient Risks discussed: Bleeding, damage to other organs, infection, incomplete drainage and pain Alternatives discussed: No treatment and delayed treatmentLocation: Type: Abscess Location: left groin.Pre-procedure details: Skin preparation: BetadineAnesthesia (see MAR for exact dosages): Anesthesia method: Local infiltration Local anesthetic: Lidocaine 1% WITH epi (3ml)Procedure details: Complexity: Simple Needle aspiration: No Incision types: Single straight Size (cm): 1 Scalpel blade: 11 Wound management: Irrigated with saline and probed and deloculated Drainage: Bloody and purulent Drainage amount: Moderate Wound treatment: Wound left open Packing materials: NonePost-procedure details: Patient tolerance of procedure: Tolerated well, no immediate complicationsComments: 1cm cutaneous incision to two abscess with moderate bloody, purulent drainage 2cm abscess, scant bloody, purulent drainage 1cm abscess. Kaylin Cruz RN and Nael Storey was edger runner and entered the room before provider, was with the provider throughout the entire procedure and remained in room after provider left the room after exam was completed. [facility] Comprehensive metabolic panel 2018-12-20 01:33:46 Test Item Sodium (test code = 2951-2) 139 135- 148 mEq/L Potassium (test code = 2823-3) 3.7 3.5- 5.0 mEq/L Chloride (test code = 2075-0) 100 98- 112 mEq/L CO2 (test code = 8-9) 23 24- 31 mEq/L L Anion gap (test code = 09923-8) 16@ANIO 7- 15 mEq/L H BUN (test code = 3094-0) 6 mg/dL 6-20 Creatinine (test code = 2160-0) 0.50 mg/dL 0.5-0.9 Glucose (test code = 2345-7) 202 mg/dL 65-99 H Calcium (test code = 79940-7) 9.8 mg/dL 8.3-10.2 Protein (test code = 2885-2) 7.3 g/dL 6.3-8.3 Bryan 4.6-7.0 g/dL1 week 4.4-7.6 g/dL7 months-1year 5.1-7.3 g/dL1-2 years 5.6-7.5 g/dL>3 years 6.0-8.0 g/bZ42-791 6.3-8.3 g/dL Albumin (test code = 1751-7) 4.7 g/dL 3.5-5 A/G ratio (test code = 1759-0) 1.8 0.7-3.8 Alkaline phosphatase (test code = 6768-6) 102 U/L 35-104 AST (test code = 1920-8) 14 U/L 10-35 ALT (test code = 1742-6) 23 U/L 5-50 Total bilirubin (test code = 1975-2) <0.2 0-1.2 Lab Interpretation (test code = 00118-6) Abnormal [facility] [id number] 01:33:46* Test Item Value Reference Range Interpretation Comments Estimated GFR (test code = 5488) >=90 mL/min/1.73 m2 Catergory Units InterpretationG1 >=90 Normal or highG2 60-89 Mildly wzhwimyxnX8g 45-59 Mildly to moderately lbwposmamQ6s 30-44 Moderately to severely decreasedG4 15-29 Severely decreasedG5 <15 Kidney failureThe eGFR was calculated using the Chronic Kidney Disease Epidemiology Collaboration (CKD-EPI) equation. Interpretation is based on recommendations of the National Kidney Foundation-Kidney Disease Outcomes Quality Initiative (NKF-KDOQI) published in 2014. [place] [facility] with platelet and wfzozdonzyyq9181-74-79 01:30:24* Test Item Value Reference Range Interpretation Comments WBC (test code = 32853-1) 12.27 4.50- 11.00 k/uL H RBC (test code = 64765-4) 3.98 m/uL 4.2-5.5 L HGB (test code = 718-7) 12.7 g/dL 12-16 HCT (test code = 4544-3) 38.9 % 37-47 MCV (test code = 787-2) 97.7 fL 82-100 MCH (test code = 785-6) 31.9 pg 27-34 MCHC (test code = 786-4) 32.6 g/dL 31-37 RDW - SD (test code = 69126-1) 44.1 fL 37-55 MPV (test code = 02004-5) 9.1 fL 8.8-13.2 Platelet count (test code = 56737-8) 298 150- 400 k/uL Nucleated RBC (test code = 35259-3) 0.00 /100 WBC Neutrophils (test code = 74535-1) 53.9 % 39-69 Lymphocytes (test code = 07182-6) 37.8 % 25-45 Monocytes (test code = 46641-9) 5.4 % 0-10 Eosinophils (test code = 20504-8) 2.4 % 0-5 Basophils (test code = 02757-0) 0.2 % 0-1 Lab Interpretation (test code = 23563-1) Abnormal [facility] qualitative, serum [id number] 01:27:48* Test Item Value Reference Range Interpretation Comments hCG qualitative, serum (test code = 2118-8) Negative [facility] [id number] 19:28:00* Test Item Value Reference Range Interpretation Comments Urine WBC (test code = 5821-4) 6-10 0-5 H [facility] [id number] 19:28:00* Test Item Value Reference Range Interpretation Comments Urine RBC (test code = 52780-0) NONE 0-5 [facility] [id number] 19:28:00* Test Item Value Reference Range Interpretation Comments Urine Bacteria (test code = 74483-9) MODERATE NONE H [facility] Epithelial [id number] 19:28:00 * Test Item Value Reference Range Interpretation Comments Urine Epithelial Cells (test code = 51439-7) MANY NONE [facility] [id number] 19:28:00* Test Item Value Reference Range Interpretation Comments Urine Mucus (test code = 8247-9) MODERATE RARE H [facility] [id number] 19:28:00* Test Item Value Reference Range Interpretation Comments Urine WBC (test code = 5821-4) 6-10 0-5 H [facility] [id number] 19:28:00* Test Item Value Reference Range Interpretation Comments Urine RBC (test code = 84619-8) NONE 0-5 [facility] [id number] 19:28:00* Test Item Value Reference Range Interpretation Comments Urine Bacteria (test code = 89729-2) MODERATE NONE H [facility] Epithelial [id number] 19:28:00 * Test Item Value Reference Range Interpretation Comments Urine Epithelial Cells (test code = 71377-7) MANY NONE [facility] [id number] 19:28:00* Test Item Value Reference Range Interpretation Comments Urine Mucus (test code = 8247-9) MODERATE RARE H [facility] [id number] 19:17:00* Test Item Value Reference Range Interpretation Comments Urine Color (test code = 5778-6) YELLOW YELLOW [facility] [id number] 19:17:00* Test Item Value Reference Range Interpretation Comments Urine Clarity (test code = 32617-5) SL CLOUDY CLEAR [facility] Hospital[facility] Specific [id number] 19:17:00 * Test Item Value Reference Range Interpretation Comments Urine Specific Tensed (test code = 5811-5) 1.020 1.010-1.02 5 [facility] [id number] 19:17:00* Test Item Value Reference Range Interpretation Comments Urine pH (test code = 74259-5) 6 5-7 [facility] Leukocyte [id number] 19:17:00* Test Item Value Reference Range Interpretation Comments Urine Leukocyte Esterase (test code = 5799-2) TRACE NEGATIVE H [facility] [id number] 19:17:00* Test Item Value Reference Range Interpretation Comments Urine Nitrite (test code = 25898-0) NEGATIVE NEGATIVE [facility] [id number] 19:17:00* Test Item Value Reference Range Interpretation Comments Urine Protein (test code = 5804-0) NEGATIVE NEGATIVE [facility] Glucose (UA)2017-12-01 19:17:00* Test Item Value Reference Range Interpretation Comments Urine Glucose (UA) (test code = 2349-9) NEGATIVE NEGATIVE [facility] [id number] 19:17:00* Test Item Value Reference Range Interpretation Comments Urine Ketones (test code = 96001-2) 1+ NEGATIVE H [facility] [id number] 19:17:00* Test Item Value Reference Range Interpretation Comments Urine Urobilinogen (test code = 06462-9) 0.2 0.2-1 [facility] [id number] 19:17:00* Test Item Value Reference Range Interpretation Comments Urine Bilirubin (test code = 1978-6) NEGATIVE NEGATIVE [facility] [id number] 19:17:00* Test Item Value Reference Range Interpretation Comments Urine Blood (test code = 31134-6) NEGATIVE NEGATIVE [facility] [id number] 19:17:00* Test Item Value Reference Range Interpretation Comments Urine Color (test code = 5778-6) YELLOW YELLOW [facility] [id number] 19:17:00* Test Item Value Reference Range Interpretation Comments Urine Clarity (test code = 99164-0) SL CLOUDY CLEAR [facility] Specific [id number] 19:17:00 * Test Item Value Reference Range Interpretation Comments Urine Specific Tensed (test code = 5811-5) 1.020 1.010-1.02 5 [facility] [id number] 19:17:00* Test Item Value Reference Range Interpretation Comments Urine pH (test code = 91359-6) 6 5-7 [facility] Leukocyte [id number] 19:17:00* Test Item Value Reference Range Interpretation Comments Urine Leukocyte Esterase (test code = 5799-2) TRACE NEGATIVE H [facility] Hospital[facility] [id number] 19:17:00* Test Item Value Reference Range Interpretation Comments Urine Nitrite (test code = 22601-3) NEGATIVE NEGATIVE [facility] [id number] 19:17:00* Test Item Value Reference Range Interpretation Comments Urine Protein (test code = 5804-0) NEGATIVE NEGATIVE [facility] Glucose (UA)2017-12-01 19:17:00* Test Item Value Reference Range Interpretation Comments Urine Glucose (UA) (test code = 2349-9) NEGATIVE NEGATIVE [facility] [id number] 19:17:00* Test Item Value Reference Range Interpretation Comments Urine Ketones (test code = 90915-3) 1+ NEGATIVE H [facility] Zfnpfkrjkqqw9165-90-13 19:17:00* Test Item Value Reference Range Interpretation Comments Urine Urobilinogen (test code = 75270-1) 0.2 0.2-1 [facility] [id number] 19:17:00* Test Item Value Reference Range Interpretation Comments Urine Bilirubin (test code = 1978-6) NEGATIVE NEGATIVE [facility] [id number] 19:17:00* Test Item Value Reference Range Interpretation Comments Urine Blood (test code = 49628-6) NEGATIVE NEGATIVE [facility] [id number] 18:22:00* Test Item Value Reference Range Interpretation Comments Sodium Level (test code = 2951-2) 139 136-145 [facility] HospitalPotassium [id number] 18:22:00* Test Item Value Reference Range Interpretation Comments Potassium Level (test code = 2823-3) 3.9 3.5-5.1 [facility] HospitalChloride [id number] 18:22:00* Test Item Value Reference Range Interpretation Comments Chloride Level (test code = 2075-0) 106 98-107 [facility] HospitalCarbon Dioxide [id number] 18:22:00* Test Item Value Reference Range Interpretation Comments Carbon Dioxide Level (test code = 2028-9) 22 22-29 [facility] HospitalAnion [id number] 18:22:00* Test Item Value Reference Range Interpretation Comments Anion Gap (test code = 70995-8) 14.9 8-16 [facility] HospitalBlood Urea [id number] 18:22:00* Test Item Value Reference Range Interpretation Comments Blood Urea Nitrogen (test code = 3094-0) 7 7-26 [facility] HospitalCreatinine2018-07-30 18:22:00* Test Item Value Reference Range Interpretation Comments Creatinine (test code = 2160-0) 0.68 0.57-1.11 [facility] HospitalBUN/Creatinine [id number] 18:22:00* Test Item Value Reference Range Interpretation Comments BUN/Creatinine Ratio (test code = 3097-3) 10 6-25 [facility] HospitalEstimat Glomerular Filtration Rate 2017-12-01 18:22:00* Test Item Value Reference Range Interpretation Comments Estimat Glomerular Filtration Rate (test code = 48062-6) 60- >60 Ranges were taken from the National Kidney Disease Education Program and the [place] [facility] Kid[facility] Foundation literature.Reference ranges:60 or greater: Boyils80-23 ( for 3 consecutive months): Chronic kidney disease 15 or less: Kidney failureHouston Methodist Clear Lake HospitalGlucose [id number] 18:22:00* Test Item Value Reference Range Interpretation Comments Glucose Level (test code = QIN4285) 162 74-118 H [facility] HospitalCalcium [id number] 18:22:00* Test Item Value Reference Range Interpretation Comments Calcium Level (test code = 94979-8) 9.4 8.4-10.2 [facility] HospitalTotal [id number] 18:22:00* Test Item Value Reference Range Interpretation Comments Total Bilirubin (test code = 1975-2) 1.1 0.2-1.2 [facility] HospitalAspartate Amino Transf (AST/SGOT) 2017-12-01 18:22:00* Test Item Value Reference Range Interpretation Comments Aspartate Amino Transf (AST/SGOT) (test code = Aspartate Amino Transf (AST/SGOT)) 13 5-34 [facility] HospitalAlanine Aminotransferase (ALT/SGPT) 2017-12-01 18:22:00* Test Item Value Reference Range Interpretation Comments Alanine Aminotransferase (ALT/SGPT) (test code = 1742-6) 15 0-55 [facility] HospitalTotal [id number] 18:22:00* Test Item Value Reference Range Interpretation Comments Total Protein (test code = 2885-2) 6.9 6.5-8.1 [facility] HospitalAlbumin2018-07-30 18:22:00* Test Item Value Reference Range Interpretation Comments Albumin (test code = 1751-7) 3.9 3.5-5.0 [facility] HospitalGlobulin2018-07-30 18:22:00* Test Item Value Reference Range Interpretation Comments Globulin (test code = 61997-8) 3.0 2.3-3.5 [facility] HospitalAlbumin/Globulin [id number] 18:22:00 * Test Item Value Reference Range Interpretation Comments Albumin/Globulin Ratio (test code = 1759-0) 1.3 0.8-2.0 [facility] HospitalAlkaline [id number] 18:22:00* Test Item Value Reference Range Interpretation Comments Alkaline Phosphatase (test code = 6768-6) 67 40-150 [facility] Fptqe1535-08-29 18:22:00* Test Item Value Reference Range Interpretation Comments Sodium Level (test code = 2951-2) 139 136-145 [facility] HospitalPotassium [id number] 18:22:00* Test Item Value Reference Range Interpretation Comments Potassium Level (test code = 2823-3) 3.9 3.5-5.1 [facility] HospitalChloride [id number] 18:22:00* Test Item Value Reference Range Interpretation Comments Chloride Level (test code = 2075-0) 106 98-107 [facility] HospitalCarbon Dioxide [id number] 18:22:00* Test Item Value Reference Range Interpretation Comments Carbon Dioxide Level (test code = 2028-9) 22 22-29 [facility] HospitalAnion [id number] 18:22:00* Test Item Value Reference Range Interpretation Comments Anion Gap (test code = 72114-9) 14.9 8-16 [facility] HospitalBlood Urea [id number] 18:22:00* Test Item Value Reference Range Interpretation Comments Blood Urea Nitrogen (test code = 3094-0) 7 7-26 [facility] HospitalCreatinine2018-07-30 18:22:00* Test Item Value Reference Range Interpretation Comments Creatinine (test code = 2160-0) 0.68 0.57-1.11 [facility] HospitalBUN/Creatinine [id number] 18:22:00* Test Item Value Reference Range Interpretation Comments BUN/Creatinine Ratio (test code = 3097-3) 10 6-25 [facility] HospitalEstimat Glomerular Filtration Rate 2017-12-01 18:22:00* Test Item Value Reference Range Interpretation Comments Estimat Glomerular Filtration Rate (test code = 482345236) > 60 >60 Ranges were taken from the National Kidney Disease Education Program and the [place] [facility] Kid[facility] Foundation literature.Reference ranges:60 or greater: Hbmxlw60-56 ( for 3 consecutive months): Chronic kidney disease 15 or less: Kidney failureHouston Methodist Clear Lake HospitalGlucose [id number] 18:22:00* Test Item Value Reference Range Interpretation Comments Glucose Level (test code = OMP3096) 162 74-118 H [facility] HospitalCalcium [id number] 18:22:00* Test Item Value Reference Range Interpretation Comments Calcium Level (test code = 65079-7) 9.4 8.4-10.2 [facility] HospitalTotal Qvuztnbxh8779-10-06 18:22:00* Test Item Value Reference Range Interpretation Comments Total Bilirubin (test code = 1975-2) 1.1 0.2-1.2 [facility] HospitalAspartate Amino Transf (AST/SGOT) 2017-12-01 18:22:00* Test Item Value Reference Range Interpretation Comments Aspartate Amino Transf (AST/SGOT) (test code = Aspartate Amino Transf (AST/SGOT)) 13 5-34 [facility] HospitalAlanine Aminotransferase (ALT/SGPT) 2017-12-01 18:22:00* Test Item Value Reference Range Interpretation Comments Alanine Aminotransferase (ALT/SGPT) (test code = 1742-6) 15 0-55 [facility] HospitalTotal [id number] 18:22:00* Test Item Value Reference Range Interpretation Comments Total Protein (test code = 2885-2) 6.9 6.5-8.1 [facility] HospitalAlbumin2018-07-30 18:22:00* Test Item Value Reference Range Interpretation Comments Albumin (test code = 1751-7) 3.9 3.5-5.0 [facility] HospitalGlobulin2018-07-30 18:22:00* Test Item Value Reference Range Interpretation Comments Globulin (test code = 70607-9) 3.0 2.3-3.5 [facility] HospitalAlbumin/Globulin [id number] 18:22:00 * Test Item Value Reference Range Interpretation Comments Albumin/Globulin Ratio (test code = 1759-0) 1.3 0.8-2.0 [facility] HospitalAlkaline Hvklzmovymv1675-53-18 18:22:00* Test Item Value Reference Range Interpretation Comments Alkaline Phosphatase (test code = 6768-6) 67 40-150 [facility] HospitalHuman Chorionic Gonadotropin, Qual 2017-12-01 18:10:00* Test Item Value Reference Range Interpretation Comments Human Chorionic Gonadotropin, Qual (test code = 2118-8) NEGATIVE NEGATIVE [facility] HospitalHuman Chorionic Gonadotropin, Qual 2017-12-01 18:10:00* Test Item Value Reference Range Interpretation Comments Human Chorionic Gonadotropin, Qual (test code = 2118-8) NEGATIVE NEGATIVE [facility] HospitalWhite Blood Gusah9012-36-66 18:03:00* Test Item Value Reference Range Interpretation Comments White Blood Count (test code = 6690-2) 10.67 4.8-10.8 [facility] HospitalRed Blood Kgjok4945-12-97 18:03:00* Test Item Value Reference Range Interpretation Comments Red Blood Count (test code = 789-8) 4.26 3.6-5.1 [facility] HospitalHemoglobin2018-07-30 18:03:00* Test Item Value Reference Range Interpretation Comments Hemoglobin (test code = 06597-2) 13.8 12.0-16.0 [facility] HospitalHematocrit2018-07-30 18:03:00* Test Item Value Reference Range Interpretation Comments Hematocrit (test code = 4544-3) 39.4 34.2-44.1 [facility] HospitalMean Corpuscular Eatuii7547-34-83 18:03:00* Test Item Value Reference Range Interpretation Comments Mean Corpuscular Volume (test code = 787-2) 92.5 81-99 [facility] HospitalMean Corpuscular Pofligmeaz8397-93-28 18:03:00* Test Item Value Reference Range Interpretation Comments Mean Corpuscular Hemoglobin (test code = 785-6) 32.4 28-32 H [facility] HospitalMean Corpuscular Hemoglobin Concent 2017-12-01 18:03:00* Test Item Value Reference Range Interpretation Comments Mean Corpuscular Hemoglobin Concent (test code = 786-4) 35.0 31-35 [facility] HospitalRed Cell Distribution Ycpnb5453-45-36 18:03:00* Test Item Value Reference Range Interpretation Comments Red Cell Distribution Width (test code = 30289-8) 11.9 11.7 -14.4 [facility] HospitalPlatelet Bqadv1241-54-38 18:03:00* Test Item Value Reference Range Interpretation Comments Platelet Count (test code = 777-3) 253 140-360 [facility] HospitalNeutrophils (%) (Auto)2017-12-01 18:03:00 * Test Item Value Reference Range Interpretation Comments Neutrophils (%) (Auto) (test code = 98955-2) 74.2 38.7-80.0 [facility] HospitalLymphocytes (%) (Auto)2017-12-01 18:03:00 * Test Item Value Reference Range Interpretation Comments Lymphocytes (%) (Auto) (test code = 736-9) 18.0 18.0-39.1 [facility] HospitalMonocytes (%) (Auto)2017-12-01 18:03:00* Test Item Value Reference Range Interpretation Comments Monocytes (%) (Auto) (test code = 5905-5) 5.2 4.4-11.3 [facility] HospitalEosinophils (%) (Auto)2017-12-01 18:03:00 * Test Item Value Reference Range Interpretation Comments Eosinophils (%) (Auto) (test code = 713-8) 2.0 0.0-6.0 [facility] HospitalBasophils (%) (Auto)2017-12-01 18:03:00* Test Item Value Reference Range Interpretation Comments Basophils (%) (Auto) (test code = 706-2) 0.3 0.0-1.0 [facility] HospitalIM GRANULOCYTES %2017-12-01 18:03:00* Test Item Value Reference Range Interpretation Comments IM GRANULOCYTES % (test code = IM GRANULOCYTES %) 0.3 0.0- 1.0 [facility] HospitalNeutrophils # (Auto)2017-12-01 18:03:00* Test Item Value Reference Range Interpretation Comments Neutrophils # (Auto) (test code = 751-8) 7.9 2.1-6.9 H [facility] HospitalLymphocytes # (Auto)2017-12-01 18:03:00* Test Item Value Reference Range Interpretation Comments Lymphocytes # (Auto) (test code = 55515-3) 1.9 1.0-3.2 [facility] HospitalMonocytes # (Auto)2017-12-01 18:03:00* Test Item Value Reference Range Interpretation Comments Monocytes # (Auto) (test code = 742-7) 0.6 0.2-0.8 [facility] HospitalEosinophils # (Auto)2017-12-01 18:03:00* Test Item Value Reference Range Interpretation Comments Eosinophils # (Auto) (test code = 711-2) 0.2 0.0-0.4 [facility] HospitalBasophils # (Auto)2017-12-01 18:03:00* Test Item Value Reference Range Interpretation Comments Basophils # (Auto) (test code = 704-7) 0.0 0.0-0.1 [facility] HospitalAbsolute Immature Granulocyte (auto 2017-12-01 18:03:00* Test Item Value Reference Range Interpretation Comments Absolute Immature Granulocyte (auto (jocelyne t code = Absolute Immature Granulocyte (auto) 0.03 0-0.1 [facility] HospitalWhite Blood Khquq5754-17-19 18:03:00* Test Item Value Reference Range Interpretation Comments White Blood Count (test code = 6690-2) 10.67 4.8-10.8 [facility] HospitalRed Blood Xcfsh6619-98-99 18:03:00* Test Item Value Reference Range Interpretation Comments Red Blood Count (test code = 789-8) 4.26 3.6-5.1 [facility] HospitalHemoglobin2018-07-30 18:03:00* Test Item Value Reference Range Interpretation Comments Hemoglobin (test code = 48602-8) 13.8 12.0-16.0 [facility] HospitalHematocrit2018-07-30 18:03:00* Test Item Value Reference Range Interpretation Comments Hematocrit (test code = 4544-3) 39.4 34.2-44.1 [facility] HospitalMean Corpuscular Umzdjr4385-42-41 18:03:00* Test Item Value Reference Range Interpretation Comments Mean Corpuscular Volume (test code = 787-2) 92.5 81-99 [facility] HospitalMean Corpuscular Iddurfebwp8259-23-70 18:03:00* Test Item Value Reference Range Interpretation Comments Mean Corpuscular Hemoglobin (test code = 785-6) 32.4 28-32 [facility] Corpuscular Hemoglobin Concent 2017-12-01 18:03:00* Test Item Value Reference Range Interpretation Comments Mean Corpuscular Hemoglobin Concent (test code = 786-4) 35.0 31-35 [facility] HospitalRed Cell Distribution Bkyvc4377-28-28 18:03:00* Test Item Value Reference Range Interpretation Comments Red Cell Distribution Width (test code = 10303-7) 11.9 11.7 -14.4 [facility] HospitalPlatelet Pjizw8653-45-61 18:03:00* Test Item Value Reference Range Interpretation Comments Platelet Count (test code = 777-3) 253 140-360 [facility] HospitalNeutrophils (%) (Auto)2017-12-01 18:03:00 * Test Item Value Reference Range Interpretation Comments Neutrophils (%) (Auto) (test code = 01983-2) 74.2 38.7-80.0 [facility] HospitalLymphocytes (%) (Auto)2017-12-01 18:03:00 * Test Item Value Reference Range Interpretation Comments Lymphocytes (%) (Auto) (test code = 736-9) 18.0 18.0-39.1 [facility] HospitalMonocytes (%) (Auto)2017-12-01 18:03:00* Test Item Value Reference Range Interpretation Comments Monocytes (%) (Auto) (test code = 5905-5) 5.2 4.4-11.3 [facility] HospitalEosinophils (%) (Auto)2017-12-01 18:03:00 * Test Item Value Reference Range Interpretation Comments Eosinophils (%) (Auto) (test code = 713-8) 2.0 0.0-6.0 [facility] HospitalBasophils (%) (Auto)2017-12-01 18:03:00* Test Item Value Reference Range Interpretation Comments Basophils (%) (Auto) (test code = 706-2) 0.3 0.0-1.0 [facility] HospitalIM GRANULOCYTES %2017-12-01 18:03:00* Test Item Value Reference Range Interpretation Comments IM GRANULOCYTES % (test code = IM GRANULOCYTES %) 0.3 0.0- 1.0 [facility] HospitalNeutrophils # (Auto)2017-12-01 18:03:00* Test Item Value Reference Range Interpretation Comments Neutrophils # (Auto) (test code = 751-8) 7.9 2.1-6.9 H [facility] HospitalLymphocytes # (Auto)2017-12-01 18:03:00* Test Item Value Reference Range Interpretation Comments Lymphocytes # (Auto) (test code = 23366-1) 1.9 1.0-3.2 [facility] HospitalMonocytes # (Auto)2017-12-01 18:03:00* Test Item Value Reference Range Interpretation Comments Monocytes # (Auto) (test code = 742-7) 0.6 0.2-0.8 [facility] HospitalEosinophils # (Auto)2017-12-01 18:03:00* Test Item Value Reference Range Interpretation Comments Eosinophils # (Auto) (test code = 711-2) 0.2 0.0-0.4 [facility] HospitalBasophils # (Auto)2017-12-01 18:03:00* Test Item Value Reference Range Interpretation Comments Basophils # (Auto) (test code = 704-7) 0.0 0.0-0.1 [facility] HospitalAbsolute Immature Granulocyte (auto 2017-12-01 18:03:00* Test Item Value Reference Range Interpretation Comments Absolute Immature Granulocyte (auto (jocelyne t code = Absolute Immature Granulocyte (auto) 0.03 0-0.1 [facility] HospitalCT BRAIN [id number] 17:57:00 [place] [address] Patient Name: MARY JO PORTILLO MR #: [id number] : Age/Sex: 27/F Req #: [id number] Adm Physician: Ordered by: GABRIELLA CASTORENA MD Report #: [id number] Location: ER Room/Bed: Procedure: [id number] CT/CT BRAIN WO Exam Date: 8 Exam Time: 1726 REPORT STATUS: Signed * ADDENDUM #1 Dose modulation, iterative reconstruction, and /or weight based adjustment of the mA/kV was utilized to reduce the radiation dose to as low as reasonably achievable. IMPRESSION: No abnormalitie s . Signed by: DR Andrea Chiang M.D. on 12/30/2017 12:17 PM ORIGINAL REPORT History: Photophobia. Headaches, neck pain C omparison studies: None Technique: Axial images were obtained from the s kull base to the vertex. Coronal and sagittal reconstructions obtained from the axial data. Findings: Scalp/skull: No abnormalities. No fractur es, blastic or lytic lesions. Extra-axial spaces: No masses. No fluid c ollections. Brain sulci: Appropriate for age. Ventricles: Normal in size and configuration. No hydrocephalus. Parenchyma: No abnormal densities. No masses, hemorrhage, acute or chronic cortical vascular insults. Sella r/suprasellar region: No abnormalities Craniocervical junction: Patent foramen magnum. No Chiari one malformation. IMPRESSION: No abnormalities . Signed by: DR Andrea Chiang M.D. on 12/01/2017 5:59 PM Dictat ed By: ANDREA YUSUF MD [id number] Transcribed By: GIGI on 12/01/17 3583 COPY TO: JESÚS CASTORENA MD
--- NOTE | 2019-10-12 20:32 | Emergency Department Note ---
History of Present Illnes History of Present Illness Chief Complaint: Extremity Trauma/Pain History of Present Illness This is a 29 year old female . Onset (how long ago): month(s) (3) Past Medical/Family History Physician Review I have reviewed the patient's past medical and family history. Any updates have been documented here. Past Medical History Past Medical History: Diabetes Other Medical History: Pancreatitis Herniated disc Type I DM Past Surgical History: Appendectomy, Back Surgery, Colon Resection Other Surgery: Partial colon removed Back surgery Other Last Tetanus: UTD Review of Systems Review of Systems Review of other systems All other systems reviewed and negative. Physical Exam Related Data Allergies: Coded Allergies: No Known Allergies (Unverified , 12/01/17) Physical Exam CONSTITUTIONAL HENT EYES NECK PULMONARY CARDIOVASCULAR GASTROINTESTINAL GENITOURINARY SKIN MUSCULOSKELETAL NEUROLOGICAL PSYCHOLOGICAL Results Imaging Imaging results reviewed: Yes Impressions [place] [address] Patient Name: MARY JO PORTILLO MR #: [id number] : 1990 Age/Sex: 29/F Req #: [id number] Adm Physician: Ordered by: SAMREEN WINN DO Report #: [id number] Location: ER Room/Bed: Procedure: [id number] DX/LUMBAR 3 VIEW Exam Date: 10/12/19 Exam Time: 2208 REPORT STATUS: Signed Lumbar Spine Radiographs: 3 views HISTORY: Pain COMPARISON: None available. DISCUSSION: Some of the osseous structures are partially obscured by stool and bowel gas. There are five non-rib bearing lumbar vertebral bodies. The alignment of the spine is within normal limits. No displaced fracture or compression deformity is identified. Vertebral body heights are maintained. Mild L4-L5 and L5-S1 disc space narrowing. IMPRESSION: No acute radiographic abnormality. Mild degenerative changes of lower lumbar spine. Signed by: Dr. Jesus Mott MD on 10/12/2019 10:53 PM Dictated By: JESUS MOTT MD 52 Transcribed By: GIGI on 10/12/192252 COPY TO: SAMREEN WINN DO~ Assessment & Plan Assessment & Plan Final Impression: (1) Pain in lower extremity due to sciatica Home Meds Reported Medications Oxycodone Hcl/Acetaminophen (OXYCODONE-ACETAMINOPHEN 5-325) 1 Each Tablet, 5-325 EACH PO Q6H PRN for PAIN, TAB 07/22/18 Insulin Lispro (HUMALOG) 100 Unit/1 Ml Cartridge, 8 UNITS SC TIDWM 01/21/17 Insulin Glargine (LANTUS 3ML PEN) 100 Units/1 Ml Inj, 20 UNITS SC HS 01/21/17 SAMREEN WINN DO Oct 12, 2019 20:32
[2019-10-12 21:03] LABS: BILIRUBIN,URINE NEGATIVE (NEGATIVE); CLARITY,URINE CLEAR (CLEAR); COLOR,URINE YELLOW (YELLOW); KETONES,URINE NEGATIVE (NEGATIVE); LEUKOCYTE ESTERASE ,URINE NEGATIVE (NEGATIVE); NITRITE,URINE NEGATIVE (NEGATIVE); PROTEIN,URINE DIPSTICK NEGATIVE (NEGATIVE); URINE UROBILINOGEN 0.2 mg/dL (0.2 - 1)
[2019-10-12 21:10] LABS: BACTERIA,URINE RARE /HPF
[2019-10-12] MEDS ORDERED: KETOROLAC TROMETHAMINE 60 MG/2 ML VIAL IM ONE (21:30)
[2019-10-12 21:31] LABS: PREGNANCY TEST, URINE NEGATIVE (NEGATIVE)
--- NOTE | 2019-10-12 22:57 | Diagnostic Imaging Report ---
Lumbar Spine Radiographs: 3 views HISTORY: Pain COMPARISON: None available. DISCUSSION: Some of the osseous structures are partially obscured by stool and bowel gas. There are five non-rib bearing lumbar vertebral bodies. The alignment of the spine is within normal limits. No displaced fracture or compression deformity is identified. Vertebral body heights are maintained. Mild L4-L5 and L5-S1 disc space narrowing. IMPRESSION: No acute radiographic abnormality. Mild degenerative changes of lower lumbar spine. Signed by: Dr. Jesus Mott MD on 10/12/2019 10:53 PM
== END 2019-10-12 23:32 | disposition home or self-care (01) ==
LOC: ER 19:26
DX: M54.32 Sciatica, left side (principal); M54.31 Sciatica, right side; E11.9 Type 2 diabetes mellitus without complications; F17.210 Nicotine dependence, cigarettes, uncomplicated
CPT/HCPCS: 72100; 81001; 81025; 99283; J1885

== ENCOUNTER 2019-10-15 01:14 | Emergency (ER) | payer BC, OTHER ==
[~2019-10-15] VITALS: Ht 167.6 cm; Wt 84.8 kg
--- OUTSIDE RECORDS SUMMARY | 2019-10-15 01:17 | XMS REPORT | Continuity of Care Document ---
Author Author [facility] t Organization [facility] Address [address] [place] [address] Phone Unavailable Care Team Providers Care Field Technician Name Role Phone MD Gonzalez HENSLEY MD PCP SAMREEN WINN Attphys Unavailable Terri DOWD, Duglas Galeas Attphys [phone] Shaun Courtney Attphys Albaro AIRCREWMAN-C, Sohail Martini Attphys Mara DOWD, Birgit Perdomo Attphys Lina SALGADO Attphys Unavailable Payers Payer Name Policy Type Policy Number Effective Date Expiration Date [employer] [id number] 2018 00:00:00 [facility] Ppo [id number] 2016 00:00:00 [facility] CHC/STAR MCDxxxxxxxxx1/ 9-PresentO xxxxxxxxx 2018 00:00:00 [facility] Problems Condition Name Condition Details Condition Category Status Onset Date Resolution Date Last Treatment Date Treating Clinician Comments Source Diabetic ketoacidosis DKA (diabetic ketoacidoses) Problem Active [facility] Dehydration Dehydration Problem Active [facility] Pain in lower extremity due to sciatica Problem Active [facility] Allergies, Adverse Reactions, Alerts Allergy Name Allergy Type Status Severity Reaction(s) Onset Date Inacti ve Date Treating Clinician Comments Source No Known Allergies DA Active U 2013-07-26 00:00:00 [facility] Family History Family Member Diagnosis Comments Start Date Stop Date Source Natural mother Diabetes [facility] Social History Social Habit Start Date Stop Date Quantity Comments Source Sex [facility]igned [facility] Alcohol intake 2019-03-12 00:00:00 2019-03-12 00:00:00 Current [...] times a day for 10 days. Norberto castillo acetaminophen-codeine (TYLENOL WITH CODEINE #3) 300-30 mg [...] 2018-09-15 00:00:00 Yes 1 tablet as needed [facility] clonAZEPAM (KlonoPIN) 1 MG tablet 2018-08-31 00:00:00 Yes 1 tablet as needed [facility] insulin GLARGINE (LANTUS SOLOSTAR U-100 INSULIN) 100 unit/mL injection (pen) 2018-04-06 00:00:00 Yes 40-52 units at bed time [facility] Insulin Glargine (Lantus 3ML Pen) 100 Units/1 Ml INJ I nsulin Glargine (Lantus 3ML Pen) 100 Units/1 Ml INJ Yes 20 Bedtime [facility] Insulin Lispro (Humalog) 100 Unit/1 Ml CARTRIDGE Insul in Lispro (Humalog) 100 Unit/1 Ml CARTRIDGE Yes 8 Three Times Daily With Meals [facility] Oxycodone Hcl/Acetaminophen (Oxycodone-Acetaminophen 5 -325) 1 Each TABLET Oxycodone Hcl/Acetaminophen (Oxycodone-Acetaminophen 5-325) 1 Each TABLET Yes Every 6 Hours as needed for Pain [facility] Jardiance Jardiance 2017-01-21 00:00:00 No 10 Daily [facility] Lantus Lantus 2017-01-21 00:00:00 No 1 Bedtime [facility] Metformin Hcl Metformin Hcl 2017-01-21 00:00:00 No 1000 Twice A Day [facility] Vital Signs Vital Name Observation Time Observation Value Comments Source Weight 2019-10-12 20:10:00 187 [lb_av] [facility] BMI (Body Mass Index) 2019-10-12 20:10:00 30.2 kg/m2 [facility] Systolic blood pressure 2019-03-12 21:29:00 107 mm[Hg] Norberto Burnette Diastolic blood pressure 2019-03-12 21:29:00 66 mm[Hg] Norberto Burnette Heart rate 2019-03-12 21:29:00 115 /min Norberto Burnette Body temperature 2019-03-12 21:29:00 37.33 [facility]al[facility] Respiratory rate 2019-03-12 21:29:00 18 /min [place] [facility] Oxygen saturation in Arterial blood by Pulse oximetry 2018-05 21:29:00 97 /min Norberto Burnette Body height 2019-03-12 19:12:00 167.6 cm Norberto Burnette Body weight 2019-03-12 19:12:00 87.091 kg Norberto Burnette BMI 2019-03-12 19:12:00 30.99 kg/m2 Norberto Burnette Procedures Procedure Date / Time Performed Performing Clinician [facility] e ED REFERRAL TO NORBERTO BURNETTE PHYSICIAN ORGANIZATION 2018 21:26:25 Gudelia Murray [place] DRAIN SKIN ABSCESS SIMPLE 2018-12-20 01:45:00 Vini Irvin HC COMPLETE BLD COUNT W/AUTO DIFF 2018-12-20 00:35:00 Shaka Irvin COMPREHENSIVE METABOLIC PANEL 2018-12-20 00:35:00 Vini Irvin HCG QUALITATIVE, SERUM SCREEN 2018-12-20 00:35:00 Vini Irvin ESTIMATED GFR 2018-12-20 00:35:00 Vini Irvin Plan of Care Planned Activity Planned Date Details Comments Source Instructions Sciatica [facility] Encounters Start Date/Time End Date/Time Encounter Type Admission Type [facility] Care Department Encounter ID Source 2019-10-12 19:26:00 2019-10-12 23:32:00 Departed Emergency Room 1 SAMREEN WINN [facility] [id number] [facility] 2018-12-24 09:38:45 2018-12-24 10:30:04 Office Visit Parul [facility] [id number] 2018-07-22 19:43:00 2018-07-22 19:43:00 Registered Emergency Room [facility] [id number] [facility] 2017-12-01 17:06:00 2017-12-01 20:13:00 Departed Emergency Room 1 ABDIAZIZ SALGADO [facility] [id number] [facility] Results Test Description Test Time Test Comments Results Result Comments Source LUMBAR 3 VIEW 2019-10-12 22:51:00 [place] [address] Patient Name: MARY JO PORTILLO MR #: [id number] : 1990 Age/Sex: 29/F Req #: [id number] Adm Physician: Ordered by: SAMREEN WINN DO Report #: [id number] Location: ER Room/Bed: Procedure: [id number] DX/LUMBAR 3 VIEW Exam Date: 10/12/19 Exam Time: 2208 REPORT STATUS: Signed Lumbar Spine Radiographs: 3 views HISTORY: Pain COMPARISON: None available. DISCUSSION: Some of the osseous structures are partially obscured by stool and bowel gas. There are five non-rib bearing lumbar vertebral bodies. The alignment of the spine is within normal limits. No displaced fracture or compression deformity is identified. Vertebral body heights are maintained. Mild L4-L5 and L5-S1 disc space narrowing. IMPRESSION: No acute radiographic abnormality. Mild degenerative changes of lower lumbar spine. Signed by: Dr. Jesus Coates MD on 10/12/2019 10:53 PM Dictated By: JESUS COATES MD 52 Transcribed By: GIGI on 10/12/192252 COPY TO: SAMREEN WINN DO Urine color determination 2019-10-12 20:15:00 Test Item Urine Color (test code = 5778-6) YELLOW YELLOW [facility] [id number] 20:15:00* Test Item Value Reference Range Interpretation Comments Urine Clarity (test code = 32371-9) CLEAR CLEAR [facility] gravity of Urine by Test strip 2019-10-12 20:15:00* Test Item Value Reference Range Interpretation Comments Urine Specific [place] (test code = 5811-5) 1.015 1.010-1.02 5 [facility] pH measurement by automated test [id number] 20:15:00* Test Item Value Reference Range Interpretation Comments Urine pH (test code = 65064-6) 5.5 5-7 [facility] leukocyte esterase detection by sqrvauxz9618-03-30 20:15:00* Test Item Value Reference Range Interpretation Comments Urine Leukocyte Esterase (test code = 5799-2) NEGATIVE NEGATIVE [facility] nitrite [id number] 20:15:00* Test Item Value Reference Range Interpretation Comments Urine Nitrite (test code = 01366-8) NEGATIVE NEGATIVE [facility] protein measurement by test strip (mass/volume)2019-10-12 20:15:00* Test Item Value Reference Range Interpretation Comments Urine Protein (test code = 5804-0) NEGATIVE NEGATIVE [facility] glucose [id number] 20:15:00* Test Item Value Reference Range Interpretation Comments Urine Glucose (UA) (test code = 2349-9) NEGATIVE NEGATIVE [facility] ketones detection by automated test [id number] 20:15:00* Test Item Value Reference Range Interpretation Comments Urine Ketones (test code = 65406-5) NEGATIVE NEGATIVE [facility]en[facility] urobilinogen measurement by test strip (mass/volume)2019-10-12 20:15:00* Test Item Value Reference Range Interpretation Comments Urine Urobilinogen (test code = 39130-3) 0.2 0.2-1 [facility] total bilirubin measurement (mass/volume)2019-10-12 20:15:00* Test Item Value Reference Range Interpretation Comments Urine Bilirubin (test code = 1978-6) NEGATIVE NEGATIVE [facility] erythrocytes [id number] 20:15:00* Test Item Value Reference Range Interpretation Comments Urine Blood (test code = 31945-4) NEGATIVE NEGATIVE [facility]en[facility]ated urine sediment leukocyte count by microscopy (number/high power field)2019-10-12 20:15:00* Test Item Value Reference Range Interpretation Comments Urine WBC (test code = 5821-4) NONE 0-5 [facility]enErythrocytes detection in urine sediment by light bmahirdkfk6389-29-56 20:15:00* Test Item Value Reference Range Interpretation Comments Urine RBC (test code = 53822-8) NONE 0-5 [facility]en[facility]acteria detection in urine sediment by light rtebxpwjay6276-98-06 20:15:00* Test Item Value Reference Range Interpretation Comments Urine Bacteria (test code = 76301-1) RARE NONE [facility]enEpithelial cells detection in urine sediment by light [id number] 20:15:00* Test Item Value Reference Range Interpretation Comments Urine Epithelial Cells (test code = 57573-8) NONE NONE [facility]en[facility] human chorionic gonadotropin (hCG) kfyaxcreg6863-70-15 20:15:00* Test Item Value Reference Range Interpretation Comments Urine Test (test code = 2106-3) NEGATIVE NEGATIVE [facility]enI&D/Aspiration/Yaocsjolfg4171-69-81 01:45:00Vini Irvin, LEONIDAS-C 12/21/2018 1:40 AMI& D/Aspiration/AmputationPerformed by: Vini Irvin AIRCREWMAN-CAuthorized by: Vini Yap, AIRCREWMAN-C Consent: Consent obtained: Verbal Consent given by: Patient Risks discussed: Bleeding, damage to other organs, infection, incompl ete drainage and pain Alternatives discussed: No treatment and delayed treatme ntLocation: Type: Abscess Location: left groin.Pre-procedure details: Skin preparation: BetadineAnesthesia (see MAR for exact dosages): Anesthesia meth od: Local infiltration Local anesthetic: Lidocaine 1% WITH epi (3ml)Procedure details: Complexity: Simple Needle aspiration: No Incision types: Singl e straight Size (cm): 1 Scalpel blade: 11 Wound management: Irrigated with saline and probed and deloculated Drainage: Bloody and purulent Drainage chandrakant unt: Moderate Wound treatment: Wound left open Packing materials: NonePost- procedure details: Patient tolerance of procedure: Tolerated well, no immedia te complicationsComments: 1cm cutaneous incision to two abscess with moderate bloody, purulent drainage 2cm abscess, scant bloody, purulent drainage 1cm absc ess. Kaylin Cruz RN and Nael Storey was television news reporter and entered the room before provider, was with the provider throughout the entire procedure and remained in room after provider left the room after exam was completed. [facility] Comprehensive metabolic [id number] 01:33:46* Test Item Value Reference Range Interpretation Comments Sodium (test code = 2951-2) 139 135- 148 mEq/L Potassium (test code = 2823-3) 3.7 3.5- 5.0 mEq/L Chloride (test code = 2075-0) 100 98- 112 mEq/L CO2 (test code = 8-9) 23 24- 31 mEq/L L Anion gap (test code = 70473-4) 16@ANIO 7- 15 mEq/L H BUN (test code = 3094-0) 6 mg/dL 6-20 Creatinine (test code = 2160-0) 0.50 mg/dL 0.5-0.9 Glucose (test code = 2345-7) 202 mg/dL 65-99 H Calcium (test code = 29620-0) 9.8 mg/dL 8.3-10.2 Protein (test code = 2885-2) 7.3 g/dL 6.3-8.3 4.6-7.0 g/dL1 week 4.4-7.6 g/dL7 months-1year 5.1-7.3 g/dL1-2 years 5.6-7.5 g/dL>3 years 6.0-8.0 g/oM29-610 6.3-8.3 g/dL Albumin (test code = 1751-7) 4.7 g/dL 3.5-5 A/G ratio (test code = 1759-0) 1.8 0.7-3.8 Alkaline phosphatase (test code = 6768-6) 102 U/L 35-104 AST (test code = 1920-8) 14 U/L 10-35 ALT (test code = 1742-6) 23 U/L 5-50 Total bilirubin (test code = 1974-2) <0.2 0-1.2 Lab Interpretation (test code = 67520-4) Abnormal [facility] [id number] 01:33:46* Test Item Value Reference Range Interpretation Comments Estimated GFR (test code = 5488) >=90 mL/min/1.73 m2 Catergory Units InterpretationG1 >=90 Normal or highG2 60-89 Mildly edtdmknwfL2n 45-59 Mildly to moderately dvqjpywlaP6w 30-44 Moderately to severely decreasedG4 15-29 Severely decreasedG5 <15 Kidney failureThe eGFR was calculated using the Chronic Kidney Disease Epidemiology Collaboration (CKD-EPI) equation. Interpretation is based on recommendations of the National Kidney Foundation-Kidney Disease Outcomes Quality Initiative (NKF-KDOQI) published in 2014. [facility] MethodistCBC with platelet and ctrnenvymikx5332-22-27 01:30:24* Test Item Value Reference Range Interpretation Comments WBC (test code = 01808-4) 12.27 4.50- 11.00 k/uL H RBC (test code = 25243-1) 3.98 m/uL 4.2-5.5 L HGB (test code = 718-7) 12.7 g/dL 12-16 HCT (test code = 4544-3) 38.9 % 37-47 MCV (test code = 787-2) 97.7 fL 82-100 MCH (test code = 785-6) 31.9 pg 27-34 MCHC (test code = 786-4) 32.6 g/dL 31-37 RDW - SD (test code = 39534-7) 44.1 fL 37-55 MPV (test code = 56410-4) 9.1 fL 8.8-13.2 Platelet count (test code = 90900-4) 298 150- 400 k/uL Nucleated RBC (test code = 06879-8) 0.00 /100 WBC Neutrophils (test code = 05804-0) 53.9 % 39-69 Lymphocytes (test code = 66154-8) 37.8 % 25-45 Monocytes (test code = 72266-4) 5.4 % 0-10 Eosinophils (test code = 10170-2) 2.4 % 0-5 Basophils (test code = 14544-2) 0.2 % 0-1 Lab Interpretation (test code = 63388-5) Abnormal [facility] qualitative, serum iwxvmo8282-86-68 01:27:48* Test Item Value Reference Range Interpretation Comments hCG qualitative, serum (test code = 2118-8) Negative [facility] [id number] 19:28:00* Test Item Value Reference Range Interpretation Comments Urine WBC (test code = 5821-4) 6-10 0-5 H [facility] [id number] 19:28:00* Test Item Value Reference Range Interpretation Comments Urine RBC (test code = 96638-7) NONE 0-5 [facility] Ivjpqsiq0814-23-18 19:28:00* Test Item Value Reference Range Interpretation Comments Urine Bacteria (test code = 12235-1) MODERATE NONE H [facility] Epithelial [id number] 19:28:00 * Test Item Value Reference Range Interpretation Comments Urine Epithelial Cells (test code = 15149-3) MANY NONE [facility] [id number] 19:28:00* Test Item Value Reference Range Interpretation Comments Urine Mucus (test code = 8247-9) MODERATE RARE H [facility] [id number] 19:28:00* Test Item Value Reference Range Interpretation Comments Urine WBC (test code = 5821-4) 6-10 0-5 H [facility] [id number] 19:28:00* Test Item Value Reference Range Interpretation Comments Urine RBC (test code = 71057-5) NONE 0-5 [facility] [id number] 19:28:00* Test Item Value Reference Range Interpretation Comments Urine Bacteria (test code = 01427-4) MODERATE NONE H [facility] Epithelial [id number] 19:28:00 * Test Item Value Reference Range Interpretation Comments Urine Epithelial Cells (test code = 15393-7) MANY NONE [facility]en[facility] [id number] 19:28:00* Test Item Value Reference Range Interpretation Comments Urine Mucus (test code = 8247-9) MODERATE RARE H [facility]enU[facility] [id number] 19:17:00* Test Item Value Reference Range Interpretation Comments Urine Color (test code = 5778-6) YELLOW YELLOW [facility]en[facility] [id number] 19:17:00* Test Item Value Reference Range Interpretation Comments Urine Clarity (test code = 00086-7) SL CLOUDY CLEAR [facility] Specific Mzemxoo7757-09-41 19:17:00 * Test Item Value Reference Range Interpretation Comments Urine Specific [place] (test code = 5811-5) 1.020 1.010-1.02 5 [facility]en[facility] [id number] 19:17:00* Test Item Value Reference Range Interpretation Comments Urine pH (test code = 32624-4) 6 5-7 [facility]en[facility] Leukocyte [id number] 19:17:00* Test Item Value Reference Range Interpretation Comments Urine Leukocyte Esterase (test code = 5799-2) TRACE NEGATIVE H [facility] Nnucpkk7258-05-78 19:17:00* Test Item Value Reference Range Interpretation Comments Urine Nitrite (test code = 99957-8) NEGATIVE NEGATIVE [facility]en[facility] [id number] 19:17:00* Test Item Value Reference Range Interpretation Comments Urine Protein (test code = 5804-0) NEGATIVE NEGATIVE [facility] Glucose (UA)2017-12-01 19:17:00* Test Item Value Reference Range Interpretation Comments Urine Glucose (UA) (test code = 2349-9) NEGATIVE NEGATIVE [facility] [id number] 19:17:00* Test Item Value Reference Range Interpretation Comments Urine Ketones (test code = 32627-8) 1+ NEGATIVE H [facility]en[facility] Ctqogwhlkiii3463-62-15 19:17:00* Test Item Value Reference Range Interpretation Comments Urine Urobilinogen (test code = 78647-1) 0.2 0.2-1 [facility] Vcvaqusva6442-31-68 19:17:00* Test Item Value Reference Range Interpretation Comments Urine Bilirubin (test code = 1978-6) NEGATIVE NEGATIVE [facility]en[facility] [id number] 19:17:00* Test Item Value Reference Range Interpretation Comments Urine Blood (test code = 20648-7) NEGATIVE NEGATIVE [facility]en[facility] [id number] 19:17:00* Test Item Value Reference Range Interpretation Comments Urine Color (test code = 5778-6) YELLOW YELLOW [facility]en[facility] [id number] 19:17:00* Test Item Value Reference Range Interpretation Comments Urine Clarity (test code = 14561-7) SL CLOUDY CLEAR [facility]en[facility] Specific [id number] 19:17:00 * Test Item Value Reference Range Interpretation Comments Urine Specific [place] (test code = 5811-5) 1.020 1.010-1.02 5 [facility]en[facility] [id number] 19:17:00* Test Item Value Reference Range Interpretation Comments Urine pH (test code = 06475-9) 6 5-7 [facility] Leukocyte Oyaedxnq0796-49-24 19:17:00* Test Item Value Reference Range Interpretation Comments Urine Leukocyte Esterase (test code = 5799-2) TRACE NEGATIVE H [facility]en[facility] [id number] 19:17:00* Test Item Value Reference Range Interpretation Comments Urine Nitrite (test code = 28667-9) NEGATIVE NEGATIVE [facility]en[facility] Zzhimiv7548-45-17 19:17:00* Test Item Value Reference Range Interpretation Comments Urine Protein (test code = 5804-0) NEGATIVE NEGATIVE [facility]en[facility] Glucose (UA)2017-12-01 19:17:00* Test Item Value Reference Range Interpretation Comments Urine Glucose (UA) (test code = 2349-9) NEGATIVE NEGATIVE [facility]en[facility] [id number] 19:17:00* Test Item Value Reference Range Interpretation Comments Urine Ketones (test code = 30997-6) 1+ NEGATIVE H [facility]enUrine Okmyqldxnfxr4812-17-37 19:17:00* Test Item Value Reference Range Interpretation Comments Urine Urobilinogen (test code = 74776-5) 0.2 0.2-1 [facility]en[facility] Rzttoxqir6769-86-40 19:17:00* Test Item Value Reference Range Interpretation Comments Urine Bilirubin (test code = 1978-6) NEGATIVE NEGATIVE [facility]en[facility] [id number] 19:17:00* Test Item Value Reference Range Interpretation Comments Urine Blood (test code = 51913-3) NEGATIVE NEGATIVE [facility] Stationodium [id number] 18:22:00* Test Item Value Reference Range Interpretation Comments Sodium Level (test code = 2951-2) 139 136-145 [facility]enPotassium Asjwl5656-20-87 18:22:00* Test Item Value Reference Range Interpretation Comments Potassium Level (test code = 2823-3) 3.9 3.5-5.1 [facility]enChloride [id number] 18:22:00* Test Item Value Reference Range Interpretation Comments Chloride Level (test code = 2075-0) 106 98-107 [facility]enCarbon Dioxide [id number] 18:22:00* Test Item Value Reference Range Interpretation Comments Carbon Dioxide Level (test code = 2028-9) 22 22-29 [facility]enAnion [id number] 18:22:00* Test Item Value Reference Range Interpretation Comments Anion Gap (test code = 42863-9) 14.9 8-16 [facility]enBlood Urea Iesfejva9739-26-62 18:22:00* Test Item Value Reference Range Interpretation Comments Blood Urea Nitrogen (test code = 3094-0) 7 7-26 [facility]enCreatinine2018-07-30 18:22:00* Test Item Value Reference Range Interpretation Comments Creatinine (test code = 2160-0) 0.68 0.57-1.11 [facility]enBUN/Creatinine Ksdpu8011-90-26 18:22:00* Test Item Value Reference Range Interpretation Comments BUN/Creatinine Ratio (test code = 3097-3) 10 6-25 [facility]enEstimat Glomerular Filtration Rate 2017-12-01 18:22:00* Test Item Value Reference Range Interpretation Comments Estimat Glomerular Filtration Rate (test code = 66375-1) 60- >60 Ranges were taken from the National Kidney Disease Education Program and the [facility] Kid[facility] Foundation literature.Reference ranges:60 or greater: Xvpvfm97-11 ( for 3 consecutive months): Chronic kidney disease 15 or less: Kidney failureVal[facility] Center – HarlingenGlucose Wmorx4770-39-88 18:22:00* Test Item Value Reference Range Interpretation Comments Glucose Level (test code = PYT6122) 162 74-118 H [facility]enCalcium Iciib8457-37-80 18:22:00* Test Item Value Reference Range Interpretation Comments Calcium Level (test code = 67989-0) 9.4 8.4-10.2 [facility]enTotal Mvcwjhdmo2754-38-51 18:22:00* Test Item Value Reference Range Interpretation Comments Total Bilirubin (test code = 1975-2) 1.1 0.2-1.2 [facility] HarlingenAspartate Amino Transf (AST/SGOT) 2017-12-01 18:22:00* Test Item Value Reference Range Interpretation Comments Aspartate Amino Transf (AST/SGOT) (test code = Aspartate Amino Transf (AST/SGOT)) 13 5-34 [facility]enAlanine Aminotransferase (ALT/SGPT) 2017-12-01 18:22:00* Test Item Value Reference Range Interpretation Comments Alanine Aminotransferase (ALT/SGPT) (test code = 1742-6) 15 0-55 [facility]enTotal Oytqagj5293-42-80 18:22:00* Test Item Value Reference Range Interpretation Comments Total Protein (test code = 2885-2) 6.9 6.5-8.1 [facility]enAlbumin2018-07-30 18:22:00* Test Item Value Reference Range Interpretation Comments Albumin (test code = 1751-7) 3.9 3.5-5.0 [facility]enGlobulin2018-07-30 18:22:00* Test Item Value Reference Range Interpretation Comments Globulin (test code = 79672-1) 3.0 2.3-3.5 [facility]enAlbumin/Globulin [id number] 18:22:00 * Test Item Value Reference Range Interpretation Comments Albumin/Globulin Ratio (test code = 1759-0) 1.3 0.8-2.0 [facility] [place]kaline Lhhlunnlcpt3916-88-32 18:22:00* Test Item Value Reference Range Interpretation Comments Alkaline Phosphatase (test code = 6768-6) 67 40-150 [facility] Stationodium Rknbs1807-57-61 18:22:00* Test Item Value Reference Range Interpretation Comments Sodium Level (test code = 2951-2) 139 136-145 [facility] [place]lingenPotassium Ltrya8421-65-28 18:22:00* Test Item Value Reference Range Interpretation Comments Potassium Level (test code = 2823-3) 3.9 3.5-5.1 [facility] [place]lingenChloride Fohlh2715-49-50 18:22:00* Test Item Value Reference Range Interpretation Comments Chloride Level (test code = 2075-0) 106 98-107 [facility] HarlingenCarbon Dioxide Thkiq5518-81-12 18:22:00* Test Item Value Reference Range Interpretation Comments Carbon Dioxide Level (test code = 2028-9) 22 22-29 [facility] HarlingenAnion Qgc3633-83-99 18:22:00* Test Item Value Reference Range Interpretation Comments Anion Gap (test code = 81663-8) 14.9 8-16 [facility] [place]enBlood Urea Fkpsvlbi4623-92-57 18:22:00* Test Item Value Reference Range Interpretation Comments Blood Urea Nitrogen (test code = 3094-0) 7 7-26 [facility] HarlingenCreatinine2018-07-30 18:22:00* Test Item Value Reference Range Interpretation Comments Creatinine (test code = 2160-0) 0.68 0.57-1.11 [facility] [place]enBUN/Creatinine Bzycz2379-79-31 18:22:00* Test Item Value Reference Range Interpretation Comments BUN/Creatinine Ratio (test code = 3097-3) 10 6-25 [facility] [place]lingenEstimat Glomerular Filtration Rate 2017-12-01 18:22:00* Test Item Value Reference Range Interpretation Comments Estimat Glomerular Filtration Rate (test code = 366867875) > 60 >60 Ranges were taken from the National Kidney Disease Education Program and the [facility] Kidney Foundation literature.Reference ranges:60 or greater: Ysdggt36-42 ( for 3 consecutive months): Chronic kidney disease 15 or less: Kidney failureVal[facility] – HarlingenGlucose Yoivy7759-73-90 18:22:00* Test Item Value Reference Range Interpretation Comments Glucose Level (test code = DDZ6810) 162 74-118 H [facility] HarlingenCalcium Fnege1350-78-93 18:22:00* Test Item Value Reference Range Interpretation Comments Calcium Level (test code = 55854-9) 9.4 8.4-10.2 [facility] HarlingenTotal Kywifnxdc5291-26-80 18:22:00* Test Item Value Reference Range Interpretation Comments Total Bilirubin (test code = 1975-2) 1.1 0.2-1.2 [facility] HarlingenAspartate Amino Transf (AST/SGOT) 2017-12-01 18:22:00* Test Item Value Reference Range Interpretation Comments Aspartate Amino Transf (AST/SGOT) (test code = Aspartate Amino Transf (AST/SGOT)) 13 5-34 [facility] [place]enAlanine Aminotransferase (ALT/SGPT) 2017-12-01 18:22:00* Test Item Value Reference Range Interpretation Comments Alanine Aminotransferase (ALT/SGPT) (test code = 1742-6) 15 0-55 [facility] [place]enTotal Ykhqnwm1566-91-88 18:22:00* Test Item Value Reference Range Interpretation Comments Total Protein (test code = 2885-2) 6.9 6.5-8.1 [facility] [place]lingenAlbumin2018-07-30 18:22:00* Test Item Value Reference Range Interpretation Comments Albumin (test code = 1751-7) 3.9 3.5-5.0 [facility] [place]lingenGlobulin2018-07-30 18:22:00* Test Item Value Reference Range Interpretation Comments Globulin (test code = 58968-6) 3.0 2.3-3.5 [facility] [place]enAlbumin/Globulin Jthjo9101-37-52 18:22:00 * Test Item Value Reference Range Interpretation Comments Albumin/Globulin Ratio (test code = 1759-0) 1.3 0.8-2.0 [facility] [place]enAlkaline Swkkdqftijx0097-41-98 18:22:00* Test Item Value Reference Range Interpretation Comments Alkaline Phosphatase (test code = 6768-6) 67 40-150 [facility] [place]lingenHuman Chorionic Gonadotropin, Qual 2017-12-01 18:10:00* Test Item Value Reference Range Interpretation Comments Human Chorionic Gonadotropin, Qual (test code = 2118-8) NEGATIVE NEGATIVE [facility] Chorionic Gonadotropin, Qual 2017-12-01 18:10:00* Test Item Value Reference Range Interpretation Comments Human Chorionic Gonadotropin, Qual (test code = 2118-8) NEGATIVE NEGATIVE [facility] [place]enWhite Blood Jfbxm4176-86-85 18:03:00* Test Item Value Reference Range Interpretation Comments White Blood Count (test code = 6690-2) 10.67 4.8-10.8 [facility] [place]enRed Blood Zjqyg2938-55-17 18:03:00* Test Item Value Reference Range Interpretation Comments Red Blood Count (test code = 789-8) 4.26 3.6-5.1 [facility] [place]enHemoglobin2018-07-30 18:03:00* Test Item Value Reference Range Interpretation Comments Hemoglobin (test code = 90876-6) 13.8 12.0-16.0 [facility] [place]enHematocrit2018-07-30 18:03:00* Test Item Value Reference Range Interpretation Comments Hematocrit (test code = 4544-3) 39.4 34.2-44.1 [facility] [place]enMean Corpuscular Xvfidy9177-62-41 18:03:00* Test Item Value Reference Range Interpretation Comments Mean Corpuscular Volume (test code = 787-2) 92.5 81-99 [facility] [place]enMean Corpuscular Afuganqvug5327-94-06 18:03:00* Test Item Value Reference Range Interpretation Comments Mean Corpuscular Hemoglobin (test code = 785-6) 32.4 28-32 H [facility] [place]enMean Corpuscular Hemoglobin Concent 2017-12-01 18:03:00* Test Item Value Reference Range Interpretation Comments Mean Corpuscular Hemoglobin Concent (test code = 786-4) 35.0 31-35 [facility] [place]enRed Cell Distribution Cwuml9364-74-53 18:03:00* Test Item Value Reference Range Interpretation Comments Red Cell Distribution Width (test code = 26102-1) 11.9 11.7 -14.4 [facility] HarlingenPlatelet Njdxt0639-66-35 18:03:00* Test Item Value Reference Range Interpretation Comments Platelet Count (test code = 777-3) 253 140-360 [facility] [place]lingenNeutrophils (%) (Auto)2017-12-01 18:03:00 * Test Item Value Reference Range Interpretation Comments Neutrophils (%) (Auto) (test code = 72034-8) 74.2 38.7-80.0 [facility] [place]lingenLymphocytes (%) (Auto)2017-12-01 18:03:00 * Test Item Value Reference Range Interpretation Comments Lymphocytes (%) (Auto) (test code = 736-9) 18.0 18.0-39.1 [facility] [place]enMonocytes (%) (Auto)2017-12-01 18:03:00* Test Item Value Reference Range Interpretation Comments Monocytes (%) (Auto) (test code = 5905-5) 5.2 4.4-11.3 [facility] [place]enEosinophils (%) (Auto)2017-12-01 18:03:00 * Test Item Value Reference Range Interpretation Comments Eosinophils (%) (Auto) (test code = 713-8) 2.0 0.0-6.0 [facility] [place]enBasophils (%) (Auto)2017-12-01 18:03:00* Test Item Value Reference Range Interpretation Comments Basophils (%) (Auto) (test code = 706-2) 0.3 0.0-1.0 [facility] [place]enIM GRANULOCYTES %2017-12-01 18:03:00* Test Item Value Reference Range Interpretation Comments IM GRANULOCYTES % (test code = IM GRANULOCYTES %) 0.3 0.0- 1.0 [facility] [place]enNeutrophils # (Auto)2017-12-01 18:03:00* Test Item Value Reference Range Interpretation Comments Neutrophils # (Auto) (test code = 751-8) 7.9 2.1-6.9 H [facility] [place]lingenLymphocytes # (Auto)2017-12-01 18:03:00* Test Item Value Reference Range Interpretation Comments Lymphocytes # (Auto) (test code = 62970-2) 1.9 1.0-3.2 [facility] [place]enMonocytes # (Auto)2017-12-01 18:03:00* Test Item Value Reference Range Interpretation Comments Monocytes # (Auto) (test code = 742-7) 0.6 0.2-0.8 [facility] [place]enEosinophils # (Auto)2017-12-01 18:03:00* Test Item Value Reference Range Interpretation Comments Eosinophils # (Auto) (test code = 711-2) 0.2 0.0-0.4 [facility] [place]enBasophils # (Auto)2017-12-01 18:03:00* Test Item Value Reference Range Interpretation Comments Basophils # (Auto) (test code = 704-7) 0.0 0.0-0.1 [facility] HarlingenAbsolute Immature Granulocyte (auto 2017-12-01 18:03:00* Test Item Value Reference Range Interpretation Comments Absolute Immature Granulocyte (auto (jocelyne t code = Absolute Immature Granulocyte (auto) 0.03 0-0.1 [facility] [place]enWhite Blood Tegxi9389-79-03 18:03:00* Test Item Value Reference Range Interpretation Comments White Blood Count (test code = 6690-2) 10.67 4.8-10.8 [facility] [place]enRed Blood Xxiit8530-71-61 18:03:00* Test Item Value Reference Range Interpretation Comments Red Blood Count (test code = 789-8) 4.26 3.6-5.1 [facility] [place]lingenHemoglobin2018-07-30 18:03:00* Test Item Value Reference Range Interpretation Comments Hemoglobin (test code = 76521-4) 13.8 12.0-16.0 [facility] [place]lingenHematocrit2018-07-30 18:03:00* Test Item Value Reference Range Interpretation Comments Hematocrit (test code = 4544-3) 39.4 34.2-44.1 [facility] [place]enMean Corpuscular Cjpzyd9279-97-14 18:03:00* Test Item Value Reference Range Interpretation Comments Mean Corpuscular Volume (test code = 787-2) 92.5 81-99 [facility] [place]enMean Corpuscular Hynqofohyr1651-28-14 18:03:00* Test Item Value Reference Range Interpretation Comments Mean Corpuscular Hemoglobin (test code = 785-6) 32.4 28-32 H [facility] [place]enMean Corpuscular Hemoglobin Concent 2017-12-01 18:03:00* Test Item Value Reference Range Interpretation Comments Mean Corpuscular Hemoglobin Concent (test code = 786-4) 35.0 31-35 [facility] [place]enRed Cell Distribution Ajkie1591-53-01 18:03:00* Test Item Value Reference Range Interpretation Comments Red Cell Distribution Width (test code = 60545-9) 11.9 11.7 -14.4 [facility] [place]lingenPlatelet Wwdyx7671-68-42 18:03:00* Test Item Value Reference Range Interpretation Comments Platelet Count (test code = 777-3) 253 140-360 [facility] [place]lingenNeutrophils (%) (Auto)2017-12-01 18:03:00 * Test Item Value Reference Range Interpretation Comments Neutrophils (%) (Auto) (test code = 07756-8) 74.2 38.7-80.0 [facility] [place]enLymphocytes (%) (Auto)2017-12-01 18:03:00 * Test Item Value Reference Range Interpretation Comments Lymphocytes (%) (Auto) (test code = 736-9) 18.0 18.0-39.1 [facility] [place]enMonocytes (%) (Auto)2017-12-01 18:03:00* Test Item Value Reference Range Interpretation Comments Monocytes (%) (Auto) (test code = 5905-5) 5.2 4.4-11.3 [facility] [place]enEosinophils (%) (Auto)2017-12-01 18:03:00 * Test Item Value Reference Range Interpretation Comments Eosinophils (%) (Auto) (test code = 713-8) 2.0 0.0-6.0 [facility] [place]enBasophils (%) (Auto)2017-12-01 18:03:00* Test Item Value Reference Range Interpretation Comments Basophils (%) (Auto) (test code = 706-2) 0.3 0.0-1.0 [facility] [place]enIM GRANULOCYTES %2017-12-01 18:03:00* Test Item Value Reference Range Interpretation Comments IM GRANULOCYTES % (test code = IM GRANULOCYTES %) 0.3 0.0- 1.0 [facility]enNeutrophils # (Auto)2017-12-01 18:03:00* Test Item Value Reference Range Interpretation Comments Neutrophils # (Auto) (test code = 751-8) 7.9 2.1-6.9 H [facility] [place]lingenLymphocytes # (Auto)2017-12-01 18:03:00* Test Item Value Reference Range Interpretation Comments Lymphocytes # (Auto) (test code = 35672-5) 1.9 1.0-3.2 [facility] [place]enMonocytes # (Auto)2017-12-01 18:03:00* Test Item Value Reference Range Interpretation Comments Monocytes # (Auto) (test code = 742-7) 0.6 0.2-0.8 [facility] [place]enEosinophils # (Auto)2017-12-01 18:03:00* Test Item Value Reference Range Interpretation Comments Eosinophils # (Auto) (test code = 711-2) 0.2 0.0-0.4 [facility] [place]enBasophils # (Auto)2017-12-01 18:03:00* Test Item Value Reference Range Interpretation Comments Basophils # (Auto) (test code = 704-7) 0.0 0.0-0.1 [facility] [place]lingenAbsolute Immature Granulocyte (auto 2017-12-01 18:03:00* Test Item Value Reference Range Interpretation Comments Absolute Immature Granulocyte (auto (jocelyne t code = Absolute Immature Granulocyte (auto) 0.03 0-0.1 [facility] HarlingenCT BRAIN [id number] 17:57:00 [place] [address] Patient Name: MARY JO PORTILLO MR #: [id number] : Age/Sex: 27/F Req #: [id number] Adm Physician: Ordered by: GABRIELLA CASTORENA MD Report #: [id number] Location: ER Room/Bed: Procedure: [id number] CT/CT BRAIN WO Exam Date: 8 Exam [...] MD 1217 Transcribed By: GIGI on 12/01/17 5580 COPY TO: JESÚS CASTORENA MD
--- OUTSIDE RECORDS SUMMARY | 2019-10-15 01:17 | XMS REPORT | Clinical Summary ---
Author Author [employer] [facility] [employer] Address Unknown Phone Unavailable Care Team Providers Care Keyboard Instrument Tuner Name Role Phone Brooklyn Salamanca MD PCP [...] 12/19/2018 Emergency Emergency Medicine - 12/20/2018 after 10/14/2018 Family History Medical History Relation Name Comments [...] Comments Vital Sign 107/66 03/12/2019 9:29 PM E COMMERCE DIRECTOR Blood Pressure 115 03/12/2019 9:29 PM E COMMERCE DIRECTOR Pulse 37.3 C (99.2 F) 03/12/2019 9:29 PM E COMMERCE DIRECTOR Temperature 18 03/12/2019 9:29 PM E COMMERCE DIRECTOR Respiratory Rate 97% 03/12/2019 9:29 PM E COMMERCE DIRECTOR Oxygen Saturation - - Inhaled Oxygen Concentration 87.1 kg (192 lb) 03/12/2019 7:12 PM E COMMERCE DIRECTOR Weight 167.6 cm (5' 6") 03/12/2019 7:12 PM E COMMERCE DIRECTOR Height 30.99 03/12/2019 7:12 PM E COMMERCE DIRECTOR Body Mass Index Plan of Treatment Not on file Procedures Comments Procedure Name Priority Date/Time Associated Diag nosis ED REFERRAL TO [place] Routine 03/12/2019 MANDAEISM PHYSICIAN 9:26 PM E COMMERCE DIRECTOR ORGANIZATION VA DRAIN SKIN ABSCESS Routine 12/20/2018 SIMPLE 1:45 AM CDT ESTIMATED GFR STAT 12/20/2018 12:35 AM CDT HCG QUALITATIVE, SERUM STAT 12/20/2018 SCREEN 12:35 AM CDT COMPREHENSIVE METABOLIC STAT 12/20/2018 PANEL 12:35 AM CDT HC COMPLETE BLD COUNT STAT 12/20/2018 W/AUTO DIFF 12:35 AM CDT after 10/14/2018 Results * I&D/Aspiration/Amputation (12/20/2018 1:45 AM CDT) [...] Kaylin Cruz RN and Nael Storey was therapeutic specialist e and entered the room before provider, was with the provider through out the entire procedure and remained in room after provider left e room after exam was completed. * Estimated GFR (12/20/2018 12:35 AM CDT) Estimated GFR >=90 mL/min/1.73 m2 [place] Comment: MANDAEISM CLEAR [facility] Interpretation G1 >=90 Normal or high [...] City/State/Zipcode [place] [address] [place], [place] [address] PATHOLOGY AND GENOMIC MEDICINE [facility] [address] [place] [address] [facility] * CBC with platelet and differential (12/20/2018 12:35 AM CDT) WBC 12.27 (H) 4.50 - 11.00 k/uL [facility] RBC 3.98 (L) 4.20 - 5.50 m/uL [facility] HGB 12.7 12.0 - 16.0 g/dL [facility] HCT 38.9 37.0 - 47.0 % [facility] MCV 97.7 82.0 - 100.0 fL [facility] MCH 31.9 27.0 - 34.0 pg [facility] MCHC 32.6 31.0 - 37.0 g/dL [facility] RDW - SD 44.1 37.0 - 55.0 fL [facility] MPV 9.1 8.8 - 13.2 fL [facility] Platelet count 298 150 - 400 k/uL [facility] Nucleated RBC 0.00 /100 WBC [facility] Neutrophils 53.9 39.0 - 69.0 % [facility] Lymphocytes 37.8 25.0 - 45.0 % [facility] Monocytes 5.4 0.0 - 10.0 % [facility] Eosinophils 2.4 0.0 - 5.0 % [facility] Basophils 0.2 0.0 - 1.0 % [facility] Specimen Blood Performing Organization Address City/State/Zipcode Ph one Number [facility] [place] [address] [place], [place] [address] PATHOLOGY AND GENOMIC MEDICINE [facility] [address] [place] [address] [facility] * hCG qualitative, serum screen (12/20/2018 12:35 AM CDT) hCG Negative [facility] Specimen Blood Performing Organization Address City/State/Zipcode Ph one Number [facility] [place] [address] [place], [place] [address] PATHOLOGY AND GENOMIC MEDICINE [facility] [address] [place] [address] [facility] * Comprehensive metabolic panel (12/20/2018 12:35 AM CDT) Sodium 139 135 - 148 mEq/L [facility] Potassium 3.7 3.5 - 5.0 mEq/L [facility] Chloride 100 98 - 112 mEq/L [facility] CO2 23 (L) 24 - 31 mEq/L [facility] Anion gap 16@ANIO (H) 7 - 15 mEq/L [facility] BUN 6 6 - 20 mg/dL [facility] Creatinine 0.50 0.50 - 0.90 mg/dL [facility] Glucose 202 (H) 65 - 99 mg/dL [facility] Calcium 9.8 8.3 - 10.2 mg/dL [facility] Protein 7.3 6.3 - 8.3 g/dL [place] Comment: [facility] 4.6-7.0 g/dL 1 week 4.4-7.6 g/dL 7 months-1year 5.1-7.3 g/dL 1-2 years 5.6-7.5 g/dL >3 years 6.0-8.0 g/dL 18-150 6.3-8.3 g/dL Albumin 4.7 3.5 - 5.0 g/dL [facility] A/G ratio 1.8 0.7 - 3.8 [facility] Alkaline 102 35 - 104 U/L [place] phosphatase [facility] AST 14 10 - 35 U/L [facility] ALT 23 5 - 50 U/L [facility] Total bilirubin <0.2 0.0 - 1.2 mg/dL [facility] Specimen Plasma specimen Performing Organization Address City/State/Zipcode [place] [address] [place] [address] PATHOLOGY AND GENOMIC MEDICINE [facility] [address] [place] [address] [facility] after 10/14/2018 Insurance Type Payer Benefit Subscriber ID Effective Phone Address Plan / Dates Group [facility] [employer] [facility] xxxxxxxxx 19 [id number] [facility] bashir [facility] Advance Directives For more information, please contact: [phone] Patient Herpetologist Explanation Type Date Recorded Advance Directives, 03/12/2019 8:53 PM Living Will and Medical Power of Layout Artist
[2019-10-15] MEDS ORDERED: SODIUM CHLORIDE 0.9% 1000ML 1,000 ML IV ONE ×2 (01:30→01:45)
--- NOTE | 2019-10-15 01:45 | NUR ---
PT INFORMED BY ER OF POSSIBLE NEED FOR ADMISSION WITH HX DKA AND GLUCOSE 522; UA OBTAINED
--- NOTE | 2019-10-15 01:50 | NUR ---
PT AT REGISTRATION WINDOW AND STATES, "I'M JUST GOING TO LEAVE BECAUSE I HAVE AN APPOINTMENT WITH DR. FLORES AT 0900 AM." PT INFORMED OF NEED TO SPEAK TO RN AND ER MD PRIOR TO LEAVING. ATTEMPTED TO CALL PT TO ASSIGNED ROOM #7 WITH NO ANSWER; SECURITY STATED PT LEFT.
--- NOTE | 2019-10-15 02:18 | Emergency Department Note ---
History of Present Illnes History of Present Illness Chief Complaint: Headache History of Present Illness This is a 29 year old female presents with complaint of leg pain and headache. Patient's leg pain has been there for about 3 months. Patient states headache started yesterday. Patient seen in this ER 2 days ago for same leg pain. Patient has history of diabetes type 1. On review of [facility] where patient received Tylenol 3 yesterday a 5 day supply,received 20 day supply of oxycodone on 09/23/19 is also on gabapentin and clonazepam. . Historian: Patient Arrival Mode: Car Onset (how long ago): month(s) (3) Location: legs, head Quality: pain to both legs, headach Radiation: Reports non-radiation Severity: moderate Onset quality: gradual Duration (how long): month(s) (3) Progression: unchanged Chronicity: chronic Context: Denies recent illness Relieving factors: none Exacerbating factors: none Associated symptoms: Reports denies other symptoms Treatments prior to arrival: none Past Medical/Family History Physician Review I have reviewed the patient's past medical and family history. Any updates have been documented here. Past Medical History Recent Fever: No Clinical Suspicion of Infectio: No New/Unexplained Change in Ment: No Past Medical History: Diabetes Other Medical History: Pancreatitis Herniated disc Type I DM Past Surgical History: Appendectomy, Back Surgery, Colon Resection Other Surgery: Partial colon removed Back surgery Social History Smoking Cessation: Never Smoker Alcohol Use: Occasional Any Illegal Drug Use: No Family History Family history of heart diseas: No Other Last Tetanus: UTD Review of Systems Review of Systems Constitutional: Reports no symptoms EENTM: Reports no symptoms Cardiovascular: Reports no symptoms Respiratory: Reports no symptoms Gastrointestinal: Reports no symptoms Genitourinary: Reports no symptoms Musculoskeletal: Reports as per HPI Integumentary: Reports no symptoms Neurological: Reports as per HPI Psychological: Reports no symptoms Endocrine: Reports no symptoms Hematological/Lymphatic: Reports no symptoms Physical Exam Related Data Allergies: Coded Allergies: No Known Allergies (Unverified , 12/01/17) Triage Vital Signs Vital Signs Date Time Temp Pulse Resp B/P (MAP) Pulse Ox O2 Delivery O2 Flow Rate FiO2 10/15/19 01:20 97.6 82 17 121/80 98 Vital signs reviewed: Yes Physical Exam CONSTITUTIONAL Constitutional: Reports well-developed, Reports well-nourished HENT HENT: Reports normocephalic, Reports atraumatic, Reports mucosae dry, Reports nose normal HENT L/R: Reports left ext ear normal, Reports right ext ear normal EYES Eyes: Reports PERRL, Reports conjunctivae normal NECK Neck: Reports ROM normal PULMONARY Pulmonary: Reports effort normal, Reports breath sounds normal CARDIOVASCULAR Cardiovascular: Reports regular rhythm, Reports heart sounds normal, Reports capillary refill normal, Reports tachycardia (135) GASTROINTESTINAL Abdominal: Reports soft, Reports nontender, Reports bowel sounds normal GENITOURINARY Genitourinary: Reports exam deferred SKIN Skin: Reports warm, Reports dry MUSCULOSKELETAL Musculoskeletal: Reports ROM normal NEUROLOGICAL Neurological: Reports alert, Reports oriented x 3, Reports no gross motor or sensory deficits PSYCHOLOGICAL Psychological: Reports mood/affect normal, Reports judgement normal Results Laboratory Laboratory Laboratory Tests Test 10/15/19 01:35 Assessment & Plan Medical Decision Making MDM Patient with headache and chronic leg pain. Noted be tachycardic 142 in triage the patient's history of diabetes states only took her insulin only once today. Dry mucous membranes. Explained to patient we were going to do a head CT some lab work check to see if she was DKA. Per nursing came in for male little while later patient left since she was getting as her doctor in the morning. Patient left 4-H has talked to her again about her possible DKA and any further workup. Patient eloped. Assessment & Plan Final Impression: (1) Tachycardia (2) Pain in lower extremity due to sciatica Depart Disposition: ELOPED Last Vital Signs Date Time Temp Pulse Resp B/P (MAP) Pulse Ox O2 Delivery O2 Flow Rate FiO2 10/15/19 01:20 97.6 82 17 121/80 98 Home Meds Reported Medications Oxycodone Hcl/Acetaminophen (OXYCODONE-ACETAMINOPHEN 5-325) 1 Each Tablet, 5-325 EACH PO Q6H PRN for PAIN, TAB 07/22/18 Insulin Lispro (HUMALOG) 100 Unit/1 Ml Cartridge, 8 UNITS SC TIDWM 01/21/17 Insulin Glargine (LANTUS 3ML PEN) 100 Units/1 Ml Inj, 20 UNITS SC HS 01/21/17 Medications in the ED Sodium Chloride 1,000 ml @ 999 mls/hr Q1H1M ONCE IV ; Start 10/15/19 at 01:30; Stop 10/15/19 at 02:05; Status DC Sodium Chloride 1,000 ml @ 999 mls/hr Q1H1M ONCE IV ; Start 10/15/19 at 01:45; Stop 10/15/19 at 02:05; Status DC ANTOINE MORTENSEN MD Oct 15, 2019 02:17
[2019-10-15 02:23] LABS: COLOR,URINE YELLOW (YELLOW)
[2019-10-15 02:24] LABS: CLARITY,URINE CLEAR (CLEAR)
[2019-10-15 02:25] LABS: KETONES,URINE 2+ (NEGATIVE); LEUKOCYTE ESTERASE ,URINE NEGATIVE (NEGATIVE); NITRITE,URINE NEGATIVE (NEGATIVE); PROTEIN,URINE DIPSTICK NEGATIVE (NEGATIVE); URINE UROBILINOGEN 0.2 mg/dL (0.2 - 1)
[2019-10-15 02:26] LABS: BACTERIA,URINE MODERATE /HPF; BILIRUBIN,URINE NEGATIVE (NEGATIVE); EPITHELIAL CELLS,URINE MANY /LPF
== END 2019-10-15 02:04 | disposition home or self-care (01) ==
LOC: ER 01:14
DX: M79.605 Pain in left leg (principal); M79.604 Pain in right leg; M54.32 Sciatica, left side; M54.31 Sciatica, right side; R51 Headache; R00.0 Tachycardia, unspecified
CPT/HCPCS: 81001; 99281

== ENCOUNTER 2019-10-15 14:17 | Emergency (ER) | payer BC, OTHER ==
[~2019-10-15] VITALS: Ht 167.6 cm; Wt 84.8 kg
--- OUTSIDE RECORDS SUMMARY | 2019-10-15 14:21 | XMS REPORT | Clinical Summary ---
Author Author [facility] Organization [facility] Address Unknown Phone Unavailable Care Team Providers Care Slasher Runner Name Role Phone Brooklyn Salamanca MD PCP [...] Comments Vital Sign 107/66 03/12/2019 9:29 PM DANCE PROFESSOR Blood Pressure 115 03/12/2019 9:29 PM DANCE PROFESSOR Pulse 37.3 C (99.2 F) 03/12/2019 9:29 PM DANCE PROFESSOR Temperature 18 03/12/2019 9:29 PM DANCE PROFESSOR Respiratory Rate 97% 03/12/2019 9:29 PM DANCE PROFESSOR Oxygen Saturation - - Inhaled Oxygen Concentration 87.1 kg (192 lb) 03/12/2019 7:12 PM DANCE PROFESSOR Weight 167.6 cm (5' 6") 03/12/2019 7:12 PM DANCE PROFESSOR Height 30.99 03/12/2019 7:12 PM DANCE PROFESSOR Body Mass Index Plan of Treatment Not on file Procedures Comments Procedure Name Priority Date/Time Associated Diag nosis ED REFERRAL TO [place] Routine 03/12/2019 LATTER-DAY PHYSICIAN 9:26 PM DANCE PROFESSOR ORGANIZATION [place] DRAIN SKIN ABSCESS Routine 12/20/2018 SIMPLE 1:45 [...] Kaylin Cruz RN and Nael Storey was braille operator e and entered the room before provider, was with the provider through out the entire procedure and remained in room after provider left e room after exam was completed. * Estimated GFR (12/20/2018 12:35 AM CDT) Estimated GFR >=90 mL/min/1.73 m2 [place] Comment: LATTER-DAY CLEAR [facility] Interpretation G1 >=90 Normal or high G2 [...] City/State/Zipcode [place] [address] [address] [place], [place] [address] PATHOLOGY AND GENOMIC MEDICINE [facility] [address] [place] [address] [facility] * CBC with platelet and differential (12/20/2018 12:35 AM CDT) WBC 12.27 (H) 4.50 - 11.00 k/uL [facility] RBC 3.98 (L) 4.20 - 5.50 m/uL [facility] HGB 12.7 12.0 - 16.0 g/dL [facility] HCT 38.9 37.0 - 47.0 % [facility] MCV 97.7 82.0 - 100.0 fL [facility] MCH 31.9 27.0 - 34.0 pg [facility] MCHC 32.6 31.0 - 37.0 g/dL [facility] RDW - SD 44.1 37.0 - 55.0 fL [facility] MPV 9.1 8.8 - 13.2 fL [facility] Platelet count 298 150 - 400 k/uL [facility] Nucleated RBC 0.00 /100 WBC [facility] Neutrophils 53.9 39.0 - 69.0 % [facility] Lymphocytes 37.8 25.0 - 45.0 % [facility] Monocytes 5.4 0.0 - 10.0 % [facility] Eosinophils 2.4 0.0 - 5.0 % [facility] Basophils 0.2 0.0 - 1.0 % [facility] Specimen Blood Performing Organization Address City/State/Zipcode Ph one Number [facility] [place] [address] [address] [place] [address] PATHOLOGY AND GENOMIC MEDICINE [facility] [address] [place] [address] [facility] * hCG qualitative, serum screen (12/20/2018 12:35 AM CDT) hCG Negative [facility] Specimen Blood Performing Organization Address City/State/Zipcode Ph one Number [facility] [place] [address] [place] [address] PATHOLOGY AND GENOMIC MEDICINE [facility] [address] [place] [address] [facility] * Comprehensive metabolic panel (12/20/2018 12:35 AM CDT) Sodium 139 135 - 148 mEq/L [facility] Potassium 3.7 3.5 - 5.0 mEq/L [facility] Chloride 100 98 - 112 mEq/L [facility] CO2 23 (L) 24 - 31 mEq/L [facility] Anion gap 16@ANIO (H) 7 - 15 mEq/L [facility] BUN 6 6 - 20 mg/dL [facility] Creatinine 0.50 0.50 - 0.90 mg/dL [facility] Glucose 202 (H) 65 - 99 mg/dL [facility] Calcium 9.8 8.3 - 10.2 mg/dL [facility] Protein 7.3 6.3 - 8.3 g/dL [place] Comment: [facility] 4.6-7.0 g/dL 1 week 4.4-7.6 g/dL 7 months-1year 5.1-7.3 g/dL 1-2 years 5.6-7.5 g/dL >3 years 6.0-8.0 g/dL 18-150 6.3-8.3 g/dL Albumin 4.7 3.5 - 5.0 g/dL [facility] A/G ratio 1.8 0.7 - 3.8 [facility] Alkaline 102 35 - 104 U/L [place] phosphatase [facility] AST 14 10 - 35 U/L [facility] ALT 23 5 - 50 U/L [facility] Total bilirubin <0.2 0.0 - 1.2 mg/dL [facility] Specimen Plasma specimen Performing Organization Address City/State/Zipcode [place] [address] [place] [address] PATHOLOGY AND GENOMIC MEDICINE [facility] [address] [place] [address] [facility] after 10/14/2018 Insurance Type Payer Benefit Subscriber ID Effective Phone Address Plan / Dates Group [facility] [employer] [facility] xxxxxxxxx 19 [id number] [facility] bashir [facility] Advance Directives For more information, please contact: [phone] Patient Home Office Representative Explanation Type Date Recorded Advance Directives, 03/12/2019 8:53 PM Living Will and Medical Power of Development Specialist
--- OUTSIDE RECORDS SUMMARY | 2019-10-15 14:22 | XMS REPORT | Continuity of Care Document ---
Author Author [facility] t Organization [facility] Address [address] [place] [address] Phone Unavailable Care Team Providers Care Staff Counselor Name Role Phone MD Gonzalez HENSLEY MD PCP SAMREEN WINN Attphys Unavailable Terri DOWD, Duglas Galeas Attphys [phone] Shaun Courtney Attphys Albaro TRACK BROOM OPERATOR-C, Sohail Martini Attphys Mara DOWD, Birgit Perdomo Attphys Lina SALGADO Attphys Unavailable Payers Payer Name Policy Type Policy Number Effective Date Expiration Date [facility] [id number] 2018 00:00:00 [facility] Ppo [id number] CH I [facility] CHC/STAR [id number]/ 9-PresentHMO xxxxxxxxx 2018 00:00:00 [facility] Problems Condition Name Condition Details Condition Category Status Onset Date Resolution Date Last Treatment Date Treating Clinician Comments Source Diabetic ketoacidosis DKA (diabetic ketoacidoses) Problem Active [facility] Dehydration Dehydration Problem Active [facility] Pain in lower extremity due to sciatica Problem Active [facility] Allergies, Adverse Reactions, Alerts Allergy Name Allergy Type Status Severity Reaction(s) Onset Date Inacti ve Date Treating Clinician Comments Source No Known Allergies DA Active U 2013-07-26 00:00:00 [facility] Family History Family Member Diagnosis Comments Start Date Stop Date Source Natural mother Diabetes [facility] Social History Social Habit Start Date Stop Date Quantity Comments Source Sex Assigned [facility] Alcohol intake 2019-03-12 00:00:00 2019-03-12 00:00:00 Current [...] 00:00:00 Yes 1 tablet as needed [place] [facility] clonAZEPAM (KlonoPIN) 1 MG tablet 2018-08-31 00:00:00 Yes 1 tablet as needed [facility]to Burnette insulin GLARGINE (LANTUS SOLOSTAR U-100 INSULIN) 100 unit/mL injection (pen) 2018-04-06 00:00:00 Yes 40-52 units at bed time [place] [facility] Insulin Glargine (Lantus 3ML Pen) 100 Units/1 Ml INJ I nsulin Glargine (Lantus 3ML Pen) 100 Units/1 Ml INJ Yes 20 Bedtime [facility] Insulin Lispro (Humalog) 100 Unit/1 Ml CARTRIDGE Insul in Lispro (Humalog) 100 Unit/1 Ml CARTRIDGE Yes 8 Three Times Daily With Meals [facility] Oxycodone Hcl/Acetaminophen (Oxycodone-Acetaminophen 5 -325) 1 Each TABLET Oxycodone Hcl/Acetaminophen (Oxycodone-Acetaminophen 5-325) 1 Each TABLET Yes Every 6 Hours as needed for Pain [facility] Jardiance Jardiance 2017-01-21 00:00:00 No 10 Daily [facility] Lantus Lantus 2017-01-21 00:00:00 No 1 Bedtime [facility] Metformin Hcl Metformin Hcl 2017-01-21 00:00:00 No 1000 Twice A Day [facility] Vital Signs Vital Name Observation Time Observation Value Comments Source Weight 2019-10-15 01:20:00 187 [lb_av] [facility] BMI (Body Mass Index) 2019-10-15 01:20:00 30.2 kg/m2 [facility] Weight 2019-10-12 20:10:00 187 [lb_av] [facility] BMI (Body Mass Index) 2019-10-12 20:10:00 30.2 kg/m2 [facility] Systolic blood pressure 2019-03-12 21:29:00 107 mm[Hg] [facility] Diastolic blood pressure 2019-03-12 21:29:00 66 mm[Hg] [facility] Heart rate 2019-03-12 21:29:00 115 /min [facility] Body temperature 2019-03-12 21:29:00 37.33 Jalyn Nhan rajwinder [facility] Respiratory rate 2019-03-12 21:29:00 18 /min Nhan rajwinder Burnette Oxygen saturation in Arterial blood by Pulse oximetry 2018-05 21:29:00 97 /min [facility]to [facility]ette Body height 2019-03-12 19:12:00 167.6 cm [facility] Body weight 2019-03-12 19:12:00 87.091 kg [facility]to [facility]ette BMI 2019-03-12 19:12:00 30.99 kg/m2 [facility] Procedures Procedure Date / Time Performed Performing Clinician [facility] e Computed tomography of brain without radiopaque contrast 2019-10 00:00:00 [facility] ED REFERRAL TO [facility] 2018 21:26:25 Gudelia Murray PA DRAIN SKIN ABSCESS SIMPLE 2018-12-20 01:45:00 Vini Irvin HC COMPLETE BLD COUNT W/AUTO DIFF 2018-12-20 00:35:00 Shaka Irvin COMPREHENSIVE METABOLIC PANEL 2018-12-20 00:35:00 Vini Irvin HCG QUALITATIVE, SERUM SCREEN 2018-12-20 00:35:00 Vini Irvin ESTIMATED GFR 2018-12-20 00:35:00 Vini Irvin Plan of Care Planned Activity Planned Date Details Comments Source Instructions Headache [facility] Encounters Start Date/Time End Date/Time [facility]counter Type Ad[facility] ID Source 2019-10-15 01:14:00 2019-10-15 02:04:00 Departed Emergency Room [facility] [id number] [facility] 2019-10-12 19:26:00 2019-10-12 23:32:00 Departed Emergency Room 1 SAMREEN WINN [facility] [id number] [facility] 2018-12-24 09:38:45 2018-12-24 10:30:04 Office Visit Shaun Courtney [facility] Medical Office Building [id number] 2018-07-22 19:43:00 2018-07-22 19:43:00 Registered Emergency Room [facility] [id number] [facility] 2017-12-01 17:06:00 2017-12-01 20:13:00 Departed Emergency Room 1 ABDIAZIZ SALGADO [facility] [id number] [facility] Results Test Description Test Time Test Comments Results Result Comments Source LUMBAR 3 VIEW 2019-10-12 22:51:00 [place] [address] Patient Name: MARY JO PORTILLO MR #: [id number] : 1990 Age/Sex: 29/F Req #: [id number] Adm Physician: Ordered by: SAMREEN WINN DO Report #: [id number] Location: ER Room/Bed: Procedure: [id number] DX/LUMBAR 3 VIEW Exam Date: 10/12/19 Exam [...] Color (test code = 5778-6) YELLOW YELLOW [facility] [id number] 20:15:00* Test Item Value Reference Range Interpretation Comments Urine Clarity (test code = 47917-6) CLEAR [facility]AR [facility] Urine by Test strip 2019-10-12 20:15:00* Test Item Value Reference Range Interpretation Comments Urine Specific [place] (test code = 5811-5) 1.015 1.010-1.02 5 [facility] pH measurement by automated test ynjck1444-24-07 20:15:00* Test Item Value Reference Range Interpretation Comments Urine pH (test code = 11930-6) 5.5 5-7 [facility] leukocyte esterase detection by ninufowg4161-08-15 20:15:00* Test Item Value Reference Range Interpretation Comments Urine Leukocyte Esterase (test code = 5799-2) NEGATIVE NEGATIVE [facility] nitrite ojkjxvtrj2313-02-78 20:15:00* Test Item Value Reference Range Interpretation Comments Urine Nitrite (test code = 18755-9) NEGATIVE NEGATIVE [facility] protein measurement by test strip (mass/volume)2019-10-12 20:15:00* Test Item Value Reference Range Interpretation Comments Urine Protein (test code = 5804-0) NEGATIVE NEGATIVE [facility] glucose afmcikjxk4840-42-34 20:15:00* Test Item Value Reference Range Interpretation Comments Urine Glucose (UA) (test code = 2349-9) NEGATIVE NEGATIVE [facility] ketones detection by automated test dmkfo3039-90-11 20:15:00* Test Item Value Reference Range Interpretation Comments Urine Ketones (test code = 97159-9) NEGATIVE NEGATIVE [facility] urobilinogen measurement by test strip (mass/volume)2019-10-12 20:15:00* Test Item Value Reference Range Interpretation Comments Urine Urobilinogen (test code = 89283-6) 0.2 0.2-1 [facility] total bilirubin measurement (mass/volume)2019-10-12 20:15:00* Test Item Value Reference Range Interpretation Comments Urine Bilirubin (test code = 1978-6) NEGATIVE NEGATIVE [facility] erythrocytes mhqzlzhnt8656-79-78 20:15:00* Test Item Value Reference Range Interpretation Comments Urine Blood (test code = 48836-9) NEGATIVE NEGATIVE [facility] CenterAutomated urine sediment leukocyte count by microscopy (number/high power field)2019-10-12 20:15:00* Test Item Value Reference Range Interpretation Comments Urine WBC (test code = 5821-4) NONE 0-5 [facility] CenterErythrocytes detection in urine sediment by light jgszjbzukx3098-32-38 20:15:00* Test Item Value Reference Range Interpretation Comments Urine RBC (test code = 45586-6) NONE 0-5 [facility] CenterBacteria detection in urine sediment by light nlaswmtllz3303-21-87 20:15:00* Test Item Value Reference Range Interpretation Comments Urine Bacteria (test code = 25438-6) RARE NONE [facility] CenterEpithelial cells detection in urine sediment by light lbbuwgqqhg3361-61-38 20:15:00* Test Item Value Reference Range Interpretation Comments Urine Epithelial Cells (test code = 02368-6) NONE NONE [facility] Center[facility] human chorionic gonadotropin (hCG) ptmhvxrwv3507-70-20 20:15:00* Test Item Value Reference Range Interpretation Comments Urine Test (test code = 2106-3) NEGATIVE NEGATIVE [facility] Center[facility] color ubbnckyhkvqgn1327-31-46 20:15:00* Test Item Value Reference Range Interpretation Comments Urine Color (test code = 5778-6) YELLOW YELLOW [facility] Center[facility] ivuydta0227-15-22 20:15:00* Test Item Value Reference Range Interpretation Comments Urine Clarity (test code = 10243-6) CLEAR CLEAR [facility] Urine by Test strip 2019-10-12 20:15:00* Test Item Value Reference Range Interpretation Comments Urine Specific [place] (test code = 5811-5) 1.015 1.010-1.02 5 [facility] pH measurement by automated test fomar0307-13-00 20:15:00* Test Item Value Reference Range Interpretation Comments Urine pH (test code = 34546-9) 5.5 5-7 [facility] Center[facility] leukocyte esterase detection by laarmvuj1357-86-90 20:15:00* Test Item Value Reference Range Interpretation Comments Urine Leukocyte Esterase (test code = 5799-2) NEGATIVE NEGATIVE [facility] nitrite dgttbcwuy8114-12-01 20:15:00* Test Item Value Reference Range Interpretation Comments Urine Nitrite (test code = 56284-9) NEGATIVE NEGATIVE [facility] protein measurement by test strip (mass/volume)2019-10-12 20:15:00* Test Item Value Reference Range Interpretation Comments Urine Protein (test code = 5804-0) NEGATIVE NEGATIVE [facility] glucose ijvizmdjx8176-45-49 20:15:00* Test Item Value Reference Range Interpretation Comments Urine Glucose (UA) (test code = 2349-9) NEGATIVE NEGATIVE [facility] Center[facility] ketones detection by automated test [id number] 20:15:00* Test Item Value Reference Range Interpretation Comments Urine Ketones (test code = 98723-2) NEGATIVE NEGATIVE [facility] Center[facility] urobilinogen measurement by test strip (mass/volume)2019-10-12 20:15:00* Test Item Value Reference Range Interpretation Comments Urine Urobilinogen (test code = 13590-1) 0.2 0.2-1 [facility] total bilirubin measurement (mass/volume)2019-10-12 20:15:00* Test Item Value Reference Range Interpretation Comments Urine Bilirubin (test code = 1978-6) NEGATIVE NEGATIVE [facility] Center[facility] erythrocytes bgvsrkfrs5692-75-20 20:15:00* Test Item Value Reference Range Interpretation Comments Urine Blood (test code = 59654-2) NEGATIVE NEGATIVE [facility] CenterAutomated urine sediment leukocyte count by microscopy (number/high power field)2019-10-12 20:15:00* Test Item Value Reference Range Interpretation Comments Urine WBC (test code = 5821-4) NONE 0-5 [facility] CenterErythrocytes detection in urine sediment by light wgfdxhwpui3771-40-58 20:15:00* Test Item Value Reference Range Interpretation Comments Urine RBC (test code = 76736-7) NONE 0-5 [facility] CenterBacteria detection in urine sediment by light xtcwhepgor8517-89-68 20:15:00* Test Item Value Reference Range Interpretation Comments Urine Bacteria (test code = 74523-3) RARE NONE [facility] CenterEpithelial cells detection in urine sediment by light nacafuqxwi6014-71-19 20:15:00* Test Item Value Reference Range Interpretation Comments Urine Epithelial Cells (test code = 76017-2) NONE NONE [facility] CenterU[facility] human chorionic gonadotropin (hCG) nbzqovqoo4109-85-18 20:15:00* Test Item Value Reference Range Interpretation Comments Urine Test (test code = 2106-3) NEGATIVE NEGATIVE [facility] CenterI&D/Aspiration/Jztmykgzrz1057-51-93 01:45:00Vini Irvin NP-C 12/21/2018 1:40 AMI& D/Aspiration/AmputationPerformed by: Vini Irvin TRACK BROOM OPERATOR-CAuthorized by: Vini Yap TRACK BROOM OPERATOR-C Consent: Consent obtained: Verbal Consent given by: [...] Kaylin Cruz RN and Nael Storey was port warden and entered the room before provider, was with the provider throughout the entire procedure and remained in room after provider left the room after exam was completed. [facility] Comprehensive metabolic nhhwi8385-58-14 01:33:46* Test Item Value Reference Range Interpretation Comments Sodium (test code = 2951-2) 139 135- 148 mEq/L Potassium (test code = 2823-3) 3.7 3.5- 5.0 mEq/L Chloride (test code = 2075-0) 100 98- 112 mEq/L CO2 (test code = 8-9) 23 24- 31 mEq/L L Anion gap (test code = 86675-4) 16@ANIO 7- 15 mEq/L H BUN (test code = 3094-0) 6 mg/dL 6-20 Creatinine (test code = 2160-0) 0.50 mg/dL 0.5-0.9 Glucose (test code = 2345-7) 202 mg/dL 65-99 H Calcium (test code = 97356-2) 9.8 mg/dL 8.3-10.2 Protein (test code = 2885-2) 7.3 g/dL 6.3-8.3 [place] 4.6-7.0 g/dL1 week 4.4-7.6 g/dL7 months-1year 5.1-7.3 g/dL1-2 years 5.6-7.5 g/dL>3 years 6.0-8.0 g/iT23-661 6.3-8.3 g/dL Albumin (test code = 1751-7) 4.7 g/dL 3.5-5 A/G ratio (test code = 1759-0) 1.8 0.7-3.8 Alkaline phosphatase (test code = 6768-6) 102 U/L 35-104 AST (test code = 1920-8) 14 U/L 10-35 ALT (test code = 1742-6) 23 U/L 5-50 Total bilirubin (test code = 1975-2) <0.2 0-1.2 Lab Interpretation (test code = 83214-3) Abnormal [facility] MethodistEstimated [id number] 01:33:46* Test Item Value Reference Range Interpretation Comments Estimated GFR (test code = 5488) >=90 mL/min/1.73 m2 Catergory Units InterpretationG1 >=90 Normal or highG2 60-89 Mildly wyvvkvazwB3p 45-59 Mildly to moderately qcvsersqnF6z 30-44 Moderately to severely decreasedG4 15-29 Severely decreasedG5 <15 Kidney failureThe eGFR was calculated using the Chronic Kidney Disease Epidemiology Collaboration (CKD-EPI) equation. Interpretation is based on recommendations of the National Kidney Foundation-Kidney Disease Outcomes Quality Initiative (NKF-KDOQI) published in 2014. [facility] MethodistCBC with platelet and fwqlhmfrdtgz1204-57-94 01:30:24* Test Item Value Reference Range Interpretation Comments WBC (test code = 51592-7) 12.27 4.50- 11.00 k/uL H RBC (test code = 40478-0) 3.98 m/uL 4.2-5.5 L HGB (test code = 718-7) 12.7 g/dL 12-16 HCT (test code = 4544-3) 38.9 % 37-47 MCV (test code = 787-2) 97.7 fL 82-100 MCH (test code = 785-6) 31.9 pg 27-34 MCHC (test code = 786-4) 32.6 g/dL 31-37 RDW - SD (test code = 34882-0) 44.1 fL 37-55 MPV (test code = 29282-0) 9.1 fL 8.8-13.2 Platelet count (test code = 60202-1) 298 150- 400 k/uL Nucleated RBC (test code = 05167-0) 0.00 /100 WBC Neutrophils (test code = 08177-5) 53.9 % 39-69 Lymphocytes (test code = 65108-8) 37.8 % 25-45 Monocytes (test code = 77133-6) 5.4 % 0-10 Eosinophils (test code = 98268-7) 2.4 % 0-5 Basophils (test code = 84691-5) 0.2 % 0-1 Lab Interpretation (test code = 52305-9) Abnormal [facility] qualitative, serum qgvdvb6773-61-38 01:27:48* Test Item Value Reference Range Interpretation Comments hCG qualitative, serum (test code = 2118-8) Negative [facility] [id number] 19:28:00* Test Item Value Reference Range Interpretation Comments Urine WBC (test code = 5821-4) 6-10 0-5 H [facility] [id number] 19:28:00* Test Item Value Reference Range Interpretation Comments Urine RBC (test code = 44302-4) NONE 0-5 [facility] Tqxatvdx6994-32-24 19:28:00* Test Item Value Reference Range Interpretation Comments Urine Bacteria (test code = 77769-5) MODERATE NONE H [facility] Epithelial Gudvt1800-45-15 19:28:00 * Test Item Value Reference Range Interpretation Comments Urine Epithelial Cells (test code = 03089-4) MANY NONE [facility] Mhefp2104-48-90 19:28:00* Test Item Value Reference Range Interpretation Comments Urine Mucus (test code = 8247-9) MODERATE RARE H [facility] HBC8970-71-61 19:28:00* Test Item Value Reference Range Interpretation Comments Urine WBC (test code = 5821-4) 6-10 0-5 H [facility] KLC6652-50-26 19:28:00* Test Item Value Reference Range Interpretation Comments Urine RBC (test code = 84893-6) NONE 0-5 [facility] Ycemxrmd6478-25-73 19:28:00* Test Item Value Reference Range Interpretation Comments Urine Bacteria (test code = 05858-5) MODERATE NONE H [facility] Center[facility] Epithelial Lpjtj7646-26-27 19:28:00 * Test Item Value Reference Range Interpretation Comments Urine Epithelial Cells (test code = 69274-5) MANY NONE [facility] Qsrtz4828-74-29 19:28:00* Test Item Value Reference Range Interpretation Comments Urine Mucus (test code = 8247-9) MODERATE RARE H [facility] Ssnyh9150-21-07 19:17:00* Test Item Value Reference Range Interpretation Comments Urine Color (test code = 5778-6) YELLOW YELLOW [facility] Lcstagg7759-47-62 19:17:00* Test Item Value Reference Range Interpretation Comments Urine Clarity (test code = 01730-2) SL CLOUDY CLEAR [facility] Specific Doxqhcq9790-66-19 19:17:00 * Test Item Value Reference Range Interpretation Comments Urine Specific [place] (test code = 5811-5) 1.020 1.010-1.02 5 [facility] [id number] 19:17:00* Test Item Value Reference Range Interpretation Comments Urine pH (test code = 01745-8) 6 5-7 [facility] Leukocyte Nujzjalp3454-12-70 19:17:00* Test Item Value Reference Range Interpretation Comments Urine Leukocyte Esterase (test code = 5799-2) TRACE NEGATIVE H [facility] Center[facility] Ryucqzx1898-04-59 19:17:00* Test Item Value Reference Range Interpretation Comments Urine Nitrite (test code = 42601-8) NEGATIVE NEGATIVE [facility] Ytkbwti4213-93-62 19:17:00* Test Item Value Reference Range Interpretation Comments Urine Protein (test code = 5804-0) NEGATIVE NEGATIVE [facility] Glucose (UA)2017-12-01 19:17:00* Test Item Value Reference Range Interpretation Comments Urine Glucose (UA) (test code = 2349-9) NEGATIVE NEGATIVE [facility] Tfnlumq0546-81-57 19:17:00* Test Item Value Reference Range Interpretation Comments Urine Ketones (test code = 38630-7) 1+ NEGATIVE H [facility] Svorhyqxbqjz0861-17-30 19:17:00* Test Item Value Reference Range Interpretation Comments Urine Urobilinogen (test code = 94519-7) 0.2 0.2-1 [facility] Odkbblfpl2569-62-27 19:17:00* Test Item Value Reference Range Interpretation Comments Urine Bilirubin (test code = 1978-6) NEGATIVE NEGATIVE [facility] Lhuwk2646-85-39 19:17:00* Test Item Value Reference Range Interpretation Comments Urine Blood (test code = 97589-7) NEGATIVE NEGATIVE [facility] Uucdg8775-46-46 19:17:00* Test Item Value Reference Range Interpretation Comments Urine Color (test code = 5778-6) YELLOW YELLOW [facility] Xutmwxj4514-28-17 19:17:00* Test Item Value Reference Range Interpretation Comments Urine Clarity (test code = 44504-7) SL CLOUDY CLEAR [facility] Specific Dyzxdql3167-59-36 19:17:00 * Test Item Value Reference Range Interpretation Comments Urine Specific [place] (test code = 5811-5) 1.020 1.010-1.02 5 [facility] [id number] 19:17:00* Test Item Value Reference Range Interpretation Comments Urine pH (test code = 75418-1) 6 5-7 [facility] Leukocyte Shywpnhk2974-42-55 19:17:00* Test Item Value Reference Range Interpretation Comments Urine Leukocyte Esterase (test code = 5799-2) TRACE NEGATIVE H [facility] Dlvxtyx1892-97-43 19:17:00* Test Item Value Reference Range Interpretation Comments Urine Nitrite (test code = 67712-3) NEGATIVE NEGATIVE [facility] Mjlexaj5754-17-00 19:17:00* Test Item Value Reference Range Interpretation Comments Urine Protein (test code = 5804-0) NEGATIVE NEGATIVE [facility] Glucose (UA)2017-12-01 19:17:00* Test Item Value Reference Range Interpretation Comments Urine Glucose (UA) (test code = 2349-9) NEGATIVE NEGATIVE [facility] Cgtczws0173-25-44 19:17:00* Test Item Value Reference Range Interpretation Comments Urine Ketones (test code = 33781-3) 1+ NEGATIVE H [facility] Hlmtbqshtowl6447-57-47 19:17:00* Test Item Value Reference Range Interpretation Comments Urine Urobilinogen (test code = 60388-0) 0.2 0.2-1 [facility] Xwhapyndh4839-49-17 19:17:00* Test Item Value Reference Range Interpretation Comments Urine Bilirubin (test code = 1978-6) NEGATIVE NEGATIVE [facility] Jdxzc6189-38-55 19:17:00* Test Item Value Reference Range Interpretation Comments Urine Blood (test code = 04248-8) NEGATIVE NEGATIVE [facility] Aqhuv1618-09-45 18:22:00* Test Item Value Reference Range Interpretation Comments Sodium Level (test code = 2951-2) 139 136-145 [facility] CenterPot[facility] Oalij1669-13-99 18:22:00* Test Item Value Reference Range Interpretation Comments Potassium Level (test code = 2823-3) 3.9 3.5-5.1 [facility] CenterChloride Qxpkb8319-71-99 18:22:00* Test Item Value Reference Range Interpretation Comments Chloride Level (test code = 2075-0) 106 98-107 [facility] CenterCarbon Dioxide Emtht3038-37-21 18:22:00* Test Item Value Reference Range Interpretation Comments Carbon Dioxide Level (test code = 2028-9) 22 -29 [facility] CenterAnion Azt8158-83-88 18:22:00* Test Item Value Reference Range Interpretation Comments Anion Gap (test code = 01193-9) 14.9 8-16 [facility] CenterBlood Urea Vwumqlof3123-31-52 18:22:00* Test Item Value Reference Range Interpretation Comments Blood Urea Nitrogen (test code = 3094-0) 7 7-26 [facility] CenterCreatinine2018-07-30 18:22:00* Test Item Value Reference Range Interpretation Comments Creatinine (test code = 2160-0) 0.68 0.57-1.11 [facility] CenterBUN/Creatinine Kywbl6525-99-32 18:22:00* Test Item Value Reference Range Interpretation Comments BUN/Creatinine Ratio (test code = 3097-3) 10 6-25 [facility] CenterEstimat Glomerular Filtration Rate 2017-12-01 18:22:00* Test Item Value Reference Range Interpretation Comments Estimat Glomerular Filtration Rate (test code = 55963-4) 60- >60 Ranges were taken from the National Kidney Disease Education Program and the [facility]ney Foundation literature.Reference ranges:60 or greater: Avsvcl72-46 ( for 3 consecutive months): Chronic kidney disease 15 or less: Kidney failureChildress Regional Medical CenterGlucose Krixy4845-26-90 18:22:00* Test Item Value Reference Range Interpretation Comments Glucose Level (test code = RGJ7576) 162 74-118 H [facility] CenterCalcium Xujoz9034-05-35 18:22:00* Test Item Value Reference Range Interpretation Comments Calcium Level (test code = 43790-2) 9.4 8.4-10.2 [facility] CenterTotal Sjluzsdby8790-72-35 18:22:00* Test Item Value Reference Range Interpretation Comments Total Bilirubin (test code = 1975-2) 1.1 0.2-1.2 [facility] CenterAspartate Amino Transf (AST/SGOT) 2017-12-01 18:22:00* Test Item Value Reference Range Interpretation Comments Aspartate Amino Transf (AST/SGOT) (test code = Aspartate Amino Transf (AST/SGOT)) 13 5-34 [facility] CenterAlanine Aminotransferase (ALT/SGPT) 2017-12-01 18:22:00* Test Item Value Reference Range Interpretation Comments Alanine Aminotransferase (ALT/SGPT) (test code = 1742-6) 15 0-55 [facility] CenterTotal Qlmbeim6198-29-84 18:22:00* Test Item Value Reference Range Interpretation Comments Total Protein (test code = 2885-2) 6.9 6.5-8.1 [facility] CenterAlbumin2018-07-30 18:22:00* Test Item Value Reference Range Interpretation Comments Albumin (test code = 1751-7) 3.9 3.5-5.0 [facility] CenterGlobulin2018-07-30 18:22:00* Test Item Value Reference Range Interpretation Comments Globulin (test code = 54047-9) 3.0 2.3-3.5 [facility] CenterAlbumin/Globulin Nppva1792-90-83 18:22:00 * Test Item Value Reference Range Interpretation Comments Albumin/Globulin Ratio (test code = 1759-0) 1.3 0.8-2.0 [facility] CenterAlkaline Soogtmkcsdh5030-06-17 18:22:00* Test Item Value Reference Range Interpretation Comments Alkaline Phosphatase (test code = 6768-6) 67 40-150 [facility] Bcoex3788-12-03 18:22:00* Test Item Value Reference Range Interpretation Comments Sodium Level (test code = 2951-2) 139 136-145 [facility] CenterPotassium Bszbm7807-99-02 18:22:00* Test Item Value Reference Range Interpretation Comments Potassium Level (test code = 2823-3) 3.9 3.5-5.1 [facility] CenterChloride Ivlhh0715-46-75 18:22:00* Test Item Value Reference Range Interpretation Comments Chloride Level (test code = 2075-0) 106 98-107 [facility] CenterCarbon Dioxide Ymlrw2028-62-59 18:22:00* Test Item Value Reference Range Interpretation Comments Carbon Dioxide Level (test code = 2028-9) 22 22-29 [facility] CenterAnion Afp4508-67-69 18:22:00* Test Item Value Reference Range Interpretation Comments Anion Gap (test code = 06520-0) 14.9 8-16 [facility] CenterBlood Urea Asnkwaoo3928-23-51 18:22:00* Test Item Value Reference Range Interpretation Comments Blood Urea Nitrogen (test code = 3094-0) 7 7-26 [facility] CenterCreatinine2018-07-30 18:22:00* Test Item Value Reference Range Interpretation Comments Creatinine (test code = 2160-0) 0.68 0.57-1.11 [facility] CenterBUN/Creatinine Ukurn5861-35-90 18:22:00* Test Item Value Reference Range Interpretation Comments BUN/Creatinine Ratio (test code = 3097-3) 10 6-25 [facility] CenterEstimat Glomerular Filtration Rate 2017-12-01 18:22:00* Test Item Value Reference Range Interpretation Comments Estimat Glomerular Filtration Rate (test code = 115912144) > 60 >60 Ranges were taken from the National Kidney Disease Education Program and the [facility] literature.Reference ranges:60 or greater: Khhyrr92-57 ( for 3 consecutive months): Chronic kidney disease 15 or less: Kidney failureChild[facility] Medical CenterGlucose Isvzh7776-82-89 18:22:00* Test Item Value Reference Range Interpretation Comments Glucose Level (test code = VIL5488) 162 74-118 H [facility] CenterCalcium Tlmio9995-88-41 18:22:00* Test Item Value Reference Range Interpretation Comments Calcium Level (test code = 71536-4) 9.4 8.4-10.2 [facility] CenterTotal Prtwmcszf0653-03-59 18:22:00* Test Item Value Reference Range Interpretation Comments Total Bilirubin (test code = 1975-2) 1.1 0.2-1.2 [facility] CenterAspartate Amino Transf (AST/SGOT) 2017-12-01 18:22:00* Test Item Value Reference Range Interpretation Comments Aspartate Amino Transf (AST/SGOT) (test code = Aspartate Amino Transf (AST/SGOT)) 13 5-34 [facility] CenterAlanine Aminotransferase (ALT/SGPT) 2017-12-01 18:22:00* Test Item Value Reference Range Interpretation Comments Alanine Aminotransferase (ALT/SGPT) (test code = 1742-6) 15 0-55 [facility] CenterTotal Cgydoon3815-68-72 18:22:00* Test Item Value Reference Range Interpretation Comments Total Protein (test code = 2885-2) 6.9 6.5-8.1 [facility] CenterAlbumin2018-07-30 18:22:00* Test Item Value Reference Range Interpretation Comments Albumin (test code = 1751-7) 3.9 3.5-5.0 [facility] CenterGlobulin2018-07-30 18:22:00* Test Item Value Reference Range Interpretation Comments Globulin (test code = 67829-9) 3.0 2.3-3.5 [facility] CenterAlbumin/Globulin Pugnz0528-31-99 18:22:00 * Test Item Value Reference Range Interpretation Comments Albumin/Globulin Ratio (test code = 1759-0) 1.3 0.8-2.0 [facility] CenterAlkaline Ynubjxaxwdu1198-14-44 18:22:00* Test Item Value Reference Range Interpretation Comments Alkaline Phosphatase (test code = 6768-6) 67 40-150 [facility] CenterHuman Chorionic Gonadotropin, Qual 2017-12-01 18:10:00* Test Item Value Reference Range Interpretation Comments Human Chorionic Gonadotropin, Qual (test code = 2118-8) NEGATIVE NEGATIVE [facility] CenterHuman Chorionic Gonadotropin, Qual 2017-12-01 18:10:00* Test Item Value Reference Range Interpretation Comments Human Chorionic Gonadotropin, Qual (test code = 2118-8) NEGATIVE NEGATIVE [facility] CenterWhite Blood Xzggy5706-23-67 18:03:00* Test Item Value Reference Range Interpretation Comments White Blood Count (test code = 6690-2) 10.67 4.8-10.8 [facility] CenterRed Blood Rzyqh3313-47-18 18:03:00* Test Item Value Reference Range Interpretation Comments Red Blood Count (test code = 789-8) 4.26 3.6-5.1 [facility] CenterHemoglobin2018-07-30 18:03:00* Test Item Value Reference Range Interpretation Comments Hemoglobin (test code = 95755-4) 13.8 12.0-16.0 [facility] CenterHematocrit2018-07-30 18:03:00* Test Item Value Reference Range Interpretation Comments Hematocrit (test code = 4544-3) 39.4 34.2-44.1 [facility] CenterMean Corpuscular Frkysk3537-02-39 18:03:00* Test Item Value Reference Range Interpretation Comments Mean Corpuscular Volume (test code = 787-2) 92.5 81-99 [facility] CenterMean Corpuscular Ismgvltbei4776-02-85 18:03:00* Test Item Value Reference Range Interpretation Comments Mean Corpuscular Hemoglobin (test code = 785-6) 32.4 28-32 H [facility] CenterMean Corpuscular Hemoglobin Concent 2017-12-01 18:03:00* Test Item Value Reference Range Interpretation Comments Mean Corpuscular Hemoglobin Concent (test code = 786-4) 35.0 31-35 [facility] CenterRed Cell Distribution Uuyne4721-90-33 18:03:00* Test Item Value Reference Range Interpretation Comments Red Cell Distribution Width (test code = 93376-8) 11.9 11.7 -14.4 [facility] CenterPlatelet Ogmav0250-90-51 18:03:00* Test Item Value Reference Range Interpretation Comments Platelet Count (test code = 777-3) 253 140-360 [facility] CenterNeutrophils (%) (Auto)2017-12-01 18:03:00 * Test Item Value Reference Range Interpretation Comments Neutrophils (%) (Auto) (test code = 81041-9) 74.2 38.7-80.0 [facility] CenterLymphocytes (%) (Auto)2017-12-01 18:03:00 * Test Item Value Reference Range Interpretation Comments Lymphocytes (%) (Auto) (test code = 736-9) 18.0 18.0-39.1 [facility] CenterMonocytes (%) (Auto)2017-12-01 18:03:00* Test Item Value Reference Range Interpretation Comments Monocytes (%) (Auto) (test code = 5905-5) 5.2 4.4-11.3 [facility] CenterEosinophils (%) (Auto)2017-12-01 18:03:00 * Test Item Value Reference Range Interpretation Comments Eosinophils (%) (Auto) (test code = 713-8) 2.0 0.0-6.0 [facility] CenterBasophils (%) (Auto)2017-12-01 18:03:00* Test Item Value Reference Range Interpretation Comments Basophils (%) (Auto) (test code = 706-2) 0.3 0.0-1.0 [facility] CenterIM GRANULOCYTES %2017-12-01 18:03:00* Test Item Value Reference Range Interpretation Comments IM GRANULOCYTES % (test code = IM GRANULOCYTES %) 0.3 0.0- 1.0 [facility] CenterNeutrophils # (Auto)2017-12-01 18:03:00* Test Item Value Reference Range Interpretation Comments Neutrophils # (Auto) (test code = 751-8) 7.9 2.1-6.9 H [facility] CenterLymphocytes # (Auto)2017-12-01 18:03:00* Test Item Value Reference Range Interpretation Comments Lymphocytes # (Auto) (test code = 62676-3) 1.9 1.0-3.2 [facility] CenterMonocytes # (Auto)2017-12-01 18:03:00* Test Item Value Reference Range Interpretation Comments Monocytes # (Auto) (test code = 742-7) 0.6 0.2-0.8 [facility] CenterEosinophils # (Auto)2017-12-01 18:03:00* Test Item Value Reference Range Interpretation Comments Eosinophils # (Auto) (test code = 711-2) 0.2 0.0-0.4 [facility] CenterBasophils # (Auto)2017-12-01 18:03:00* Test Item Value Reference Range Interpretation Comments Basophils # (Auto) (test code = 704-7) 0.0 0.0-0.1 [facility] CenterAbsolute Immature Granulocyte (auto 2017-12-01 18:03:00* Test Item Value Reference Range Interpretation Comments Absolute Immature Granulocyte (auto (jocelyne t code = Absolute Immature Granulocyte (auto) 0.03 0-0.1 [facility] CenterWhite Blood Vngit6963-06-41 18:03:00* Test Item Value Reference Range Interpretation Comments White Blood Count (test code = 6690-2) 10.67 4.8-10.8 [facility] CenterRed Blood Lxnqi6444-33-68 18:03:00* Test Item Value Reference Range Interpretation Comments Red Blood Count (test code = 789-8) 4.26 3.6-5.1 [facility] CenterHemoglobin2018-07-30 18:03:00* Test Item Value Reference Range Interpretation Comments Hemoglobin (test code = 74880-2) 13.8 12.0-16.0 [facility] CenterHematocrit2018-07-30 18:03:00* Test Item Value Reference Range Interpretation Comments Hematocrit (test code = 4544-3) 39.4 34.2-44.1 [facility] CenterMean Corpuscular Bebbxc2270-76-26 18:03:00* Test Item Value Reference Range Interpretation Comments Mean Corpuscular Volume (test code = 787-2) 92.5 81-99 [facility] CenterMean Corpuscular Prhiuszvng8965-84-64 18:03:00* Test Item Value Reference Range Interpretation Comments Mean Corpuscular Hemoglobin (test code = 785-6) 32.4 28-32 H [facility] CenterMean Corpuscular Hemoglobin Concent 2017-12-01 18:03:00* Test Item Value Reference Range Interpretation Comments Mean Corpuscular Hemoglobin Concent (test code = 786-4) 35.0 31-35 [facility] CenterRed Cell Distribution Jkhlp4343-27-91 18:03:00* Test Item Value Reference Range Interpretation Comments Red Cell Distribution Width (test code = 93540-9) 11.9 11.7 -14.4 [facility] CenterPlatelet Wmysc2673-20-77 18:03:00* Test Item Value Reference Range Interpretation Comments Platelet Count (test code = 777-3) 253 140-360 [facility] CenterNeutrophils (%) (Auto)2017-12-01 18:03:00 * Test Item Value Reference Range Interpretation Comments Neutrophils (%) (Auto) (test code = 87867-9) 74.2 38.7-80.0 [facility] CenterLymphocytes (%) (Auto)2017-12-01 18:03:00 * Test Item Value Reference Range Interpretation Comments Lymphocytes (%) (Auto) (test code = 736-9) 18.0 18.0-39.1 [facility] CenterMonocytes (%) (Auto)2017-12-01 18:03:00* Test Item Value Reference Range Interpretation Comments Monocytes (%) (Auto) (test code = 5905-5) 5.2 4.4-11.3 [facility] CenterEosinophils (%) (Auto)2017-12-01 18:03:00 * Test Item Value Reference Range Interpretation Comments Eosinophils (%) (Auto) (test code = 713-8) 2.0 0.0-6.0 [facility] CenterBasophils (%) (Auto)2017-12-01 18:03:00* Test Item Value Reference Range Interpretation Comments Basophils (%) (Auto) (test code = 706-2) 0.3 0.0-1.0 [facility] CenterIM GRANULOCYTES %2017-12-01 18:03:00* Test Item Value Reference Range Interpretation Comments IM GRANULOCYTES % (test code = IM GRANULOCYTES %) 0.3 0.0- 1.0 [facility] CenterNeutrophils # (Auto)2017-12-01 18:03:00* Test Item Value Reference Range Interpretation Comments Neutrophils # (Auto) (test code = 751-8) 7.9 2.1-6.9 [facility] CenterLymphocytes # (Auto)2017-12-01 18:03:00* Test Item Value Reference Range Interpretation Comments Lymphocytes # (Auto) (test code = 82519-7) 1.9 1.0-3.2 [facility] CenterMonocytes # (Auto)2017-12-01 18:03:00* Test Item Value Reference Range Interpretation Comments Monocytes # (Auto) (test code = 742-7) 0.6 0.2-0.8 [facility] CenterEosinophils # (Auto)2017-12-01 18:03:00* Test Item Value Reference Range Interpretation Comments Eosinophils # (Auto) (test code = 711-2) 0.2 0.0-0.4 [facility] CenterBasophils # (Auto)2017-12-01 18:03:00* Test Item Value Reference Range Interpretation Comments Basophils # (Auto) (test code = 704-7) 0.0 0.0-0.1 [facility] CenterAbsolute Immature Granulocyte (auto 2017-12-01 18:03:00* Test Item Value Reference Range Interpretation Comments Absolute Immature Granulocyte (auto (jocelyne t code = Absolute Immature Granulocyte (auto) 0.03 0-0.1 [facility] CenterCT BRAIN [id number] 17:57:00 [place] [id number] Patient Name: MARY JO PORTILLO MR #: [id number] : Age/Sex: 27/F Req #: [id number] Adm Physician: Ordered by: GABRIELLA CASTORENA MD Report #: [id number] Location: ER Room/Bed: Procedure: [id number] CT/CT BRAIN WO Exam Date: 8 Exam [...] IMPRESSION: No abnormalities . Signed by: DR Andrae Chiang M.D. on 12/01/2017 5:59 PM Dictat ed By: ANDREA YUSUF MD [id number] Transcribed By: GIGI on 12/01/17 0330 COPY TO: JESÚS CASTORENA MD
[2019-10-15] MEDS ORDERED: SODIUM CHLORIDE 0.9% 1000ML 1,000 ML IV STA (14:43)
[2019-10-15] MEDS ORDERED: ONDANSETRON HCL INJ 2MG/ML 2ML 2 MG/ML VIAL IV STA (14:43)
[2019-10-15] MEDS ORDERED: MORPHINE SULFATE INJ 4 MG/ML INJ 1ML IV STA ×2 (14:43→16:56)
--- NOTE | 2019-10-15 14:43 | Emergency Department Note ---
History of Present Illnes History of Present Illness Chief Complaint: General Medicine Complaints History of Present Illness This is a 29 year old female for headache and weakness. Patient seen in the ED earlier this AM and had declined further work up for headache and tachycardia. Patient seen at bedside in moderate distress. Historian: Patient Arrival Mode: Car Medical Research Assistant Required: No Onset (how long ago): day(s) (1) Radiation: Reports extremity, Reports other (head) Severity: severe Onset quality: gradual Duration (how long): day(s) (1) Timing of current episode: constant Progression: worsening Context: Reports recent illness Relieving factors: medication Associated symptoms: Reports headaches, Reports nausea/vomiting, Reports weakness Treatments prior to arrival: none Previous service: tests performed, one or more referrals, re-evaluation Past Medical/Family History Physician Review I have reviewed the patient's past medical and family history. Any updates have been documented here. Past Medical History Recent Fever: No Clinical Suspicion of Infectio: No New/Unexplained Change in Ment: No Past Medical History: Diabetes Other Medical History: Pancreatitis Herniated disc Type I DM Past Surgical History: Appendectomy, Back Surgery, Colon Resection Other Surgery: Partial colon removed Back surgery Other Last Tetanus: UTD Review of Systems Review of Systems Constitutional: Reports malaise, Reports weakness EENTM: Reports no symptoms Cardiovascular: Reports no symptoms Respiratory: Reports no symptoms Gastrointestinal: Reports nausea Genitourinary: Reports no symptoms Musculoskeletal: Reports no symptoms Integumentary: Reports no symptoms Neurological: Reports headache Psychological: Reports no symptoms Endocrine: Reports no symptoms Hematological/Lymphatic: Reports no symptoms Physical Exam Related Data Allergies: Coded Allergies: No Known Allergies (Unverified , 12/01/17) Triage Vital Signs Vital Signs Date Time Temp Pulse Resp B/P (MAP) Pulse Ox O2 Delivery O2 Flow Rate FiO2 10/15/19 14:22 97.4 136 /20 97 Vital signs reviewed: Yes Physical Exam CONSTITUTIONAL Constitutional: Reports diaphoretic, Reports distressed, Reports ill appearing HENT HENT: Reports mucosae dry HENT L/R: Reports left ext ear normal, Reports right ext ear normal EYES Eyes: Reports PERRL, Reports conjunctivae normal NECK Neck: Reports ROM normal PULMONARY Pulmonary: Reports effort normal, Reports breath sounds normal CARDIOVASCULAR Cardiovascular: Reports heart sounds normal, Reports tachycardia GASTROINTESTINAL Abdominal: Reports soft, Reports nontender, Reports bowel sounds normal GENITOURINARY Genitourinary: Reports exam deferred SKIN Skin: Reports warm, Reports dry MUSCULOSKELETAL Musculoskeletal: Reports ROM normal NEUROLOGICAL Neurological: Reports alert, Reports oriented x 3, Reports no gross motor or sensory deficits PSYCHOLOGICAL Psychological: Reports mood/affect normal, Reports judgement normal Results Laboratory Lab results reviewed: Yes Laboratory comments CBC : wbc 18.42 CMP : Co2 7 , K 5.2, Cr 1.32 VBG : metabolic acidosis Imaging Imaging results reviewed: Yes Diagnostics Tests Diagnostic test(s) reviewed: Yes Procedures 12 Lead ECG Interpretation ECG Interpretation : ECG: ECG 1 Medical Research Assistant: Interpreted by ED physician Date: Oct 15, 2019 Time: 15:11 Prior ECG tracings: reviewed Rhythm: sinus rhythm Rate: normal BPM: 93 QRS axis: normal ST segments normal: Yes T waves normal: No T wave elevation: V4, V5, V6 Clinical Impression: non-specific ECG Critical Care Time Total Critical Care Time (min): 31 Critcal care necessary due to: endocrine crisis Critcal care time spent by me: develop tx plan w patient/surrogate, evaluation patient response to tx, examination of patient, obtaining hx from patient/surrogate, order/perform tx or interventions, order/review laboratory studies, re-evaluation of patient condition Assessment & Plan Medical Decision Making MDM 29 yof with malaise since yesterday. high suspicion for DKA and confirmed with blood work. Patient started on insulin drip and re-evaluated multiple times . Plan to transfer to ICU [facility] for critical care management and admissoin Assessment & Plan Final Impression: (1) DKA (diabetic ketoacidoses) (2) Renal insufficiency (3) Hyperkalemia (4) Dehydration (5) Tachycardia Depart Disposition: TRANS TO OTHER [facility] Last Vital Signs Date Time Temp Pulse Resp B/P (MAP) Pulse Ox O2 Delivery O2 Flow Rate FiO2 10/15/19 14:22 97.4 136 /20 97 Home Meds Reported Medications Oxycodone Hcl/Acetaminophen (OXYCODONE-ACETAMINOPHEN 5-325) 1 Each Tablet, 5-325 EACH PO Q6H PRN for PAIN, TAB 07/22/18 Insulin Lispro (HUMALOG) 100 Unit/1 Ml Cartridge, 8 UNITS SC TIDWM 01/21/17 Insulin Glargine (LANTUS 3ML PEN) 100 Units/1 Ml Inj, 20 UNITS SC HS 01/21/17 Medications in the ED Sodium Chloride 1,000 ml @ 0 mls/hr Q0M STAT IV Last administered on 10/15/19at 15:20; Admin Dose 999 MLS/HR; Start 10/15/19 at 14:43; Stop 10/15/19 at 16:29; Status DC Morphine Sulfate 4 mg ONCE STAT IV Last administered on 10/15/19at 15:24; Admin Dose 4 MG; Start 10/15/19 at 14:43; Stop 10/15/19 at 16:29; Status DC Ondansetron HCl 4 mg ONCE STAT IV Last administered on 10/15/19at 15:22; Admin Dose 4 MG; Start 10/15/19 at 14:43; Stop 10/15/19 at 16:29; Status DC Sodium Chloride 1,000 ml @ 250 mls/hr Q4H IV Last administered on 10/15/19at 17:25; Admin Dose 250 MLS/HR; Start 10/15/19 at 16:30; Stop 10/15/19 at 19:00; Status DC Insulin Human Regular 100 unit/ Sodium Chloride 100 ml @ 10 mls/hr Q10H IV L ast administered on 10/15/19at 17:25; Admin Dose 10 MLS/HR; Start 10/15/19 at 16:30; Stop 10/15/19 at 19:00; Status DC Dextrose/Sodium Chloride 1,000 ml @ 100 mls/hr Q10H IV Last administered on 10/15/19at 17:25; Admin Dose 100 MLS/HR; Start 10/15/19 at 16:30; Stop 10/15/19 at 19:00; Status DC Potassium Chloride 200 ml @ 100 mls/hr ONCE PRN IV FOR K+ 3.0 OR LESS Last administered on 10/15/19 17:25; Admin Dose 100 MLS/HR; Start 10/15/19 at 16:30; Stop 10/15/19 at 19:00; Status DC Morphine Sulfate 4 mg ONCE STAT IV Last administered on 10/15/19at 17:25; Admin Dose 4 MG; Start 10/15/19 at 16:56; Stop 10/15/19 at 17:00; Status DC Famotidine 20 mg NOW STAT IV Last administered on 10/15/19at 17:40; Admin Dose 20 MG; Start 10/15/19 at 17:05; Stop 10/15/19 at 17:11; Status DC SAMREEN WINN DO Oct 15, 2019 14:43
[2019-10-15 15:03] LABS: BASOPHILS # (AUTO) 0.1 (0.0-0.1); BASOPHILS % 0.3 % (0.0-1.0); EOSINOPHILS # (AUTO) 3.3 (0.0-0.4); EOSINOPHILS % 18.1 % (0.0-6.0); HEMATOCRIT 47.4 % (34.2-44.1); HEMOGLOBIN 15.5 g/dL (12.0-16.0); LYMPHOCYTES # (AUTO) 1.5 (1.0-3.2); LYMPHOCYTES % 7.9 % (18.0-39.1); MEAN CORPUSCULAR HEMOGLOBIN 31.8 pg (28-32); MEAN CORPUSCULAR HGB CONC 32.7 g/dL (31-35); MEAN CORPUSCULAR VOLUME 97.1 fL (81-99); MONOCYTES # (AUTO) 0.3 (0.2-0.8); MONOCYTES % 1.6 % (4.4-11.3); NEUTROPHILS # (AUTO) 13.1 (2.1-6.9); NEUTROPHILS % 71.2 % (38.7-80.0); PLATELET COUNT 377 x10e3/uL (140-360); RED BLOOD COUNT 4.88 x10e6/uL (3.6-5.1); RED CELL DISTRIBUTION WIDTH 12.2 % (11.7-14.4)
[2019-10-15 15:22] LABS: COLOR,URINE YELLOW (YELLOW)
[2019-10-15 15:23] LABS: BILIRUBIN,URINE SMALL (NEGATIVE); CLARITY,URINE SL CLOUDY (CLEAR); KETONES,URINE 2+ (NEGATIVE); LEUKOCYTE ESTERASE ,URINE NEGATIVE (NEGATIVE); NITRITE,URINE NEGATIVE (NEGATIVE); PROTEIN,URINE DIPSTICK 2+ (NEGATIVE); URINE UROBILINOGEN 0.2 mg/dL (0.2 - 1)
[2019-10-15 15:24] LABS: PREGNANCY TEST, URINE NEGATIVE (NEGATIVE)
[2019-10-15 15:45] LABS: EPITHELIAL CELLS,URINE FEW /LPF
--- NOTE | 2019-10-15 16:18 | NUR ---
blood glucose checked on glucometer result 537, ER aware
[2019-10-15] MEDS ORDERED: DEXTROSE 5%/0.45% SOD CHL 1,000 ML IV SCH (16:30)
[2019-10-15] MEDS ORDERED: POTASSIUM CHLORIDE 20MEQ/100ML 200 ML IV PRN (16:30)
[2019-10-15] MEDS ORDERED: INSULIN REGULAR, HUMAN 3ML VL 100 UNIT in SODIUM CHLORIDE 0.9% 99 ML IV SCH ×2 (16:30)
[2019-10-15] MEDS ORDERED: SODIUM CHLORIDE 0.9% 1000ML 1,000 ML IV SCH (16:30)
[2019-10-15] MEDS ORDERED: FAMOTIDINE 20 MG/2 ML VIAL IV STA (17:05)
[2019-10-15 17:10] LABS: ALBUMIN 4.5 g/dL (3.5-5.0); ALBUMIN/GLOBULIN RATIO 1.1 (0.8-2.0); ANION GAP 28.2 mmol/L (8-16); CALCIUM 9.5 mg/dL (8.4-10.2); CREATININE, SERUM 1.32 mg/dL (0.57-1.11); POTASSIUM 5.2 mmol/L (3.5-5.1)
--- NOTE | 2019-10-15 17:25 | NUR ---
Insulin drip started and verified with Bobby GUADALUPE protocol followed.
--- NOTE | 2019-10-15 18:20 | NUR ---
attempted to call report was placed on hold for 10 minutes will attempt to call back.
--- NOTE | 2019-10-15 18:32 | NUR ---
attempted to call report again unable to get in contact with nurse will attempt to call back.
[2019-10-15 18:52] VITALS: BP 125/76
[2019-10-15 20:50] LABS: EOSINOPHILS % (MANUAL) 8 % (0-7); LYMPHOCYTES % (MANUAL) 13 % (19-48); MONOCYTES % (MANUAL) 1 % (3.4-9.0); NEUTROPHILS % (MANUAL) 78 % (40-74)
[2019-10-15 20:51] LABS: ANISOCYTOSIS SLIGHT; PLATELET ESTIMATE ADEQUATE; PLATELET MORPHOLOGY COMMENT NORMAL; RBC MORPHOLOGY COMMENT NORMAL; TEAR DROP CELLS FEW
== END 2019-10-15 19:00 | disposition other institution (70) ==
LOC: ER 14:17
DX: R51 Headache (principal); R53.1 Weakness; R11.2 Nausea with vomiting, unspecified; E11.10 Type 2 diabetes mellitus with ketoacidosis without coma; N28.9 Disorder of kidney and ureter, unspecified; E87.5 Hyperkalemia; E86.0 Dehydration; R00.0 Tachycardia, unspecified
CPT/HCPCS: 36415; 80053; 81001; 81025; 83605; 85025; 87040; 87086; 93005; 99284; J1817; J2270; J2405; J3480; J7030; J7050

== ENCOUNTER 2020-07-16 20:59 | Inpatient (IN) | payer OTHER ==
[~2020-07-16] VITALS: Ht 170.2 cm; Wt 88.0 kg
[2020-07-16] MEDS ORDERED: ONDANSETRON HCL INJ 2MG/ML 2ML 2 MG/ML VIAL IV STA (21:14)
[2020-07-16] MEDS: DEXTROSE 5%/0.45% SOD CHL 1,000 ML IV SCH (21:15)
[2020-07-16] MEDS ORDERED: SODIUM CHLORIDE 0.9% 1000ML 1,000 ML IV SCH ×2 (21:15→22:45)
[2020-07-16] MEDS ORDERED: INSULIN REGULAR, HUMAN 3ML VL 100 UNIT in SODIUM CHLORIDE 0.9% 100 ML IV SCH ×2 (21:15)
[2020-07-16] MEDS ORDERED: POTASSIUM CHLORIDE 20MEQ/100ML 200 ML IV PRN (21:15)
[2020-07-16] MEDS ORDERED: MAGNESIUM SULF 1GRAM/DEXTROSE 100 ML IV PRN (21:15)
[2020-07-16] MEDS: SODIUM CHLORIDE 0.9% 1000ML 1,000 ML IV SCH (21:30)
[2020-07-16 21:39] LABS: BASOPHILS % 0.1 % (0.0-1.0); HEMATOCRIT 50.8 % (34.2-44.1); HEMOGLOBIN 15.3 g/dL (12.0-16.0); LYMPHOCYTES # (AUTO) 2.3 (1.0-3.2); LYMPHOCYTES % 6.6 % (18.0-39.1); MEAN CORPUSCULAR HEMOGLOBIN 31.5 pg (28-32); MEAN CORPUSCULAR HGB CONC 30.1 g/dL (31-35); MEAN CORPUSCULAR VOLUME 104.7 fL (81-99); MONOCYTES # (AUTO) 1.4 (0.2-0.8); MONOCYTES % 3.9 % (4.4-11.3); NEUTROPHILS # (AUTO) 30.9 (2.1-6.9); NEUTROPHILS % 86.8 % (38.7-80.0); PLATELET COUNT 486 x10e3/uL (140-360); RED BLOOD COUNT 4.85 x10e6/uL (3.6-5.1)
[2020-07-16 22:22] LABS: ALBUMIN 4.8 g/dL (3.5-5.0); ANION GAP 35.7 mmol/L (8-16); CALCIUM 10.1 mg/dL (8.4-10.2); CREATININE, SERUM 2.12 mg/dL (0.57-1.11)
[2020-07-16 22:24] LABS: POTASSIUM 6.7 mmol/L (3.5-5.1)
[2020-07-16 22:37] LABS: CLARITY,URINE CLOUDY (CLEAR); COLOR,URINE YELLOW (YELLOW); KETONES,URINE 2+ (NEGATIVE); LEUKOCYTE ESTERASE ,URINE NEGATIVE (NEGATIVE); NITRITE,URINE NEGATIVE (NEGATIVE); PROTEIN,URINE DIPSTICK 2+ (NEGATIVE); URINE UROBILINOGEN 0.2 mg/dL (0.2 - 1)
[2020-07-16 22:44] LABS: BAND NEUTROPHILS % (MANUAL) 1 %; LYMPHOCYTES % (MANUAL) 3 % (19-48); MONOCYTES % (MANUAL) 1 % (3.4-9.0); MYELOCYTES % (MANUAL) 1 % (0-0); NEUTROPHILS % (MANUAL) 93 % (40-74); PLATELET ESTIMATE ADEQUATE; PLATELET MORPHOLOGY COMMENT NORMAL; RBC MORPHOLOGY COMMENT NORMAL
[2020-07-16 22:45] LABS: MAGNESIUM 2.5 MG/DL (1.3-2.1); PHOSPHORUS 9.9 MG/DL (2.3-4.7)
[2020-07-16 23:13] LABS: BACTERIA,URINE MANY /HPF; EPITHELIAL CELLS,URINE MANY /LPF
[2020-07-16 23:56] LABS: ABG HCO3 6 mmol/L (22-26); ABG PCO2 20 mmHg (35-45); ABG PH 7.07 (7.35-7.45); ABG PO2 118 mmHg (80-105); ABG TCO2 6
[2020-07-17] VITALS (21 sets, daily range): BP systolic 81–107; BP diastolic 48–69
[2020-07-17] MEDS: FENTANYL CITRATE/PF 100MCG/2 ML INJ IV PRN ×2 (00:13→08:01)
[2020-07-17] MEDS ORDERED: CEFTRIAXONE SOD 1 GM in SODIUM CHLORIDE 0.9% 50ML 50 ML IV ONE (00:45)
[2020-07-17] MEDS ORDERED: CEFTRIAXONE SOD 1 GM/50 ML BAG IV ONE (00:45)
[2020-07-17] MEDS: SODIUM CHLORIDE 0.9% 1000ML 1,000 ML IV SCH ×6 (01:34→20:00)
[2020-07-17 02:09] LABS: ANION GAP 21.1 mmol/L (8-16); CREATININE, SERUM 1.53 mg/dL (0.57-1.11); MAGNESIUM 1.8 MG/DL (1.3-2.1)
[2020-07-17 02:12] LABS: POTASSIUM 5.1 mmol/L (3.5-5.1)
[2020-07-17] MEDS: DEXTROSE 5%/0.45% SOD CHL 1,000 ML IV SCH ×2 (03:27→07:15)
[2020-07-17] MEDS ORDERED: SODIUM CHLORIDE 0.9% 100 ML ONE (05:01)
[2020-07-17] MEDS ORDERED: INSULIN REGULAR, HUMAN 100 UNIT/1 ML 3ML VIAL ONE (05:02)
[2020-07-17 06:21] LABS: ANION GAP 19.8 mmol/L (8-16); BLOOD UREA NITROGEN 15 mg/dL (7-26); BUN/CREATININE RATIO 16 (6-25); CALCIUM 8.6 mg/dL (8.4-10.2); CARBON DIOXIDE 30 mmol/L (22-29); CHLORIDE 101 mmol/L (98-107); CREATININE, SERUM 0.96 mg/dL (0.57-1.11); EST GLOMERULAR FILTRATION RATE > 60 ML/MIN (60-); GLUCOSE 119 mg/dL (74-118); MAGNESIUM 1.6 MG/DL (1.3-2.1); POTASSIUM 3.8 mmol/L (3.5-5.1); SODIUM 147 mmol/L (136-145)
[2020-07-17 06:50] LABS: BASOPHILS # (AUTO) 0.1 (0.0-0.1); BASOPHILS % 0.2 % (0.0-1.0); HEMATOCRIT 37.4 % (34.2-44.1); HEMOGLOBIN 12.2 g/dL (12.0-16.0); LYMPHOCYTES # (AUTO) 3.6 (1.0-3.2); LYMPHOCYTES % 14.6 % (18.0-39.1); MEAN CORPUSCULAR HEMOGLOBIN 31.6 pg (28-32); MEAN CORPUSCULAR HGB CONC 32.6 g/dL (31-35); MEAN CORPUSCULAR VOLUME 96.9 fL (81-99); MONOCYTES # (AUTO) 1.7 (0.2-0.8); MONOCYTES % 7.1 % (4.4-11.3); NEUTROPHILS # (AUTO) 18.9 (2.1-6.9); NEUTROPHILS % 77.2 % (38.7-80.0); PLATELET COUNT 315 x10e3/uL (140-360); RED BLOOD COUNT 3.86 x10e6/uL (3.6-5.1); RED CELL DISTRIBUTION WIDTH 12.2 % (11.7-14.4)
[2020-07-17] MEDS ORDERED: INSULIN REGULAR, HUMAN 3ML VL 100 UNIT in SODIUM CHLORIDE 0.9% 99 ML IV SCH ×2 (07:30)
[2020-07-17] MEDS ORDERED: MAGNESIUM SULF 1GRAM/DEXTROSE 100 ML IV PRN ×2 (08:00→23:00)
[2020-07-17 09:15] LABS: ANION GAP 12.8 mmol/L (8-16); BLOOD UREA NITROGEN 21 mg/dL (7-26); BUN/CREATININE RATIO 23 (6-25); CALCIUM 7.7 mg/dL (8.4-10.2); CARBON DIOXIDE 14 mmol/L (22-29); CHLORIDE 116 mmol/L (98-107); CREATININE, SERUM 0.91 mg/dL (0.57-1.11); EST GLOMERULAR FILTRATION RATE > 60 ML/MIN (60-); GLUCOSE 73 mg/dL (74-118); MAGNESIUM 1.6 MG/DL (1.3-2.1); POTASSIUM 3.8 mmol/L (3.5-5.1); SODIUM 139 mmol/L (136-145)
[2020-07-17] MEDS ORDERED: DEXTROSE 50% SYRINGE 50 ML IV ONE (10:21)
[2020-07-17 13:17] LABS: ANION GAP 17.3 mmol/L (8-16); BLOOD UREA NITROGEN 19 mg/dL (7-26); BUN/CREATININE RATIO 22 (6-25); CALCIUM 7.8 mg/dL (8.4-10.2); CARBON DIOXIDE 12 mmol/L (22-29); CHLORIDE 113 mmol/L (98-107); CREATININE, SERUM 0.87 mg/dL (0.57-1.11); EST GLOMERULAR FILTRATION RATE > 60 ML/MIN (60-); GLUCOSE 188 mg/dL (74-118); MAGNESIUM 1.7 MG/DL (1.3-2.1); POTASSIUM 4.3 mmol/L (3.5-5.1); SODIUM 138 mmol/L (136-145)
[2020-07-17] MEDS: MORPHINE SULFATE INJ 2 MG/ML SYR IV PRN ×2 (14:28→20:18)
[2020-07-17] MEDS ORDERED: INSULIN REGULAR, HUMAN 3ML VL 100 UNIT in SODIUM CHLORIDE 0.9% 100 ML 99 ML IV SCH ×2 (17:45)
[2020-07-17 18:23] LABS: CHOL/HDL RATIO 5.4 (3.0-3.6)
[2020-07-17 19:11] LABS: ANION GAP 17.1 mmol/L (8-16); BLOOD UREA NITROGEN 13 mg/dL (7-26); BUN/CREATININE RATIO 16 (6-25); CALCIUM 8.1 mg/dL (8.4-10.2); CARBON DIOXIDE 14 mmol/L (22-29); CHLORIDE 110 mmol/L (98-107); CREATININE, SERUM 0.82 mg/dL (0.57-1.11); EST GLOMERULAR FILTRATION RATE > 60 ML/MIN (60-); GLUCOSE 257 mg/dL (74-118); MAGNESIUM 1.7 MG/DL (1.3-2.1); POTASSIUM 4.1 mmol/L (3.5-5.1); SODIUM 137 mmol/L (136-145)
[2020-07-17] MEDS: INSULIN REGULAR, HUMAN 3ML VL 300 UNIT in SODIUM CHLORIDE 0.45% 100 ML 300 ML IV SCH ×4 (20:10→23:13)
[2020-07-17] MEDS ORDERED: DEXTROSE 50% SYRINGE 50 ML IV PRN (20:45)
[2020-07-17] MEDS: CEFTRIAXONE SOD 1 GM in SODIUM CHLORIDE 0.9% 50ML 50 ML IV SCH ×2 (20:53→21:15)
[2020-07-17] MEDS: INSULIN GLARGINE 100 UNITS/ML VIAL SQ SCH ×2 (20:53→21:16)
[2020-07-17] MEDS: KETOROLAC TROMETHAMINE 30 MG/ML VIAL IM PRN (21:35)
[2020-07-17] MEDS: METOCLOPRAMIDE HCL 10 MG/2ML VIAL IV PRN (21:35)
[2020-07-17] MEDS: DIPHENHYDRAMINE HCL INJ 50 MG/ML VIAL IV PRN (21:35)
[2020-07-17] MEDS ORDERED: POTASSIUM CHLORIDE 20MEQ/100ML 200 ML IV PRN (23:00)
[2020-07-18] VITALS (16 sets, daily range): BP systolic 78–140; BP diastolic 49–82
[2020-07-18 00:02] LABS: ANION GAP 15.8 mmol/L (8-16); BLOOD UREA NITROGEN 9 mg/dL (7-26); BUN/CREATININE RATIO 12 (6-25); CARBON DIOXIDE 17 mmol/L (22-29); CHLORIDE 111 mmol/L (98-107); CREATININE, SERUM 0.77 mg/dL (0.57-1.11); EST GLOMERULAR FILTRATION RATE > 60 ML/MIN (60-); GLUCOSE 163 mg/dL (74-118); POTASSIUM 3.8 mmol/L (3.5-5.1); SODIUM 140 mmol/L (136-145)
[2020-07-18] MEDS: SODIUM CHLORIDE 0.9% 1000ML 1,000 ML IV SCH ×2 (06:08→10:37)
[2020-07-18] MEDS: DIPHENHYDRAMINE HCL INJ 50 MG/ML VIAL IV PRN (07:17)
[2020-07-18] MEDS: METOCLOPRAMIDE HCL 10 MG/2ML VIAL IV PRN (07:17)
[2020-07-18] MEDS: KETOROLAC TROMETHAMINE 30 MG/ML VIAL IM PRN (07:17)
[2020-07-18 07:29] LABS: ALANINE AMINOTRANSFERASE 8 IU/L (0-55); ALBUMIN 3.3 g/dL (3.5-5.0); ALBUMIN/GLOBULIN RATIO 1.1 (0.8-2.0); ALKALINE PHOSPHATASE 64 IU/L (40-150); ANION GAP 16.6 mmol/L (8-16); BLOOD UREA NITROGEN 9 mg/dL (7-26); BUN/CREATININE RATIO 13 (6-25); CALCIUM 8.2 mg/dL (8.4-10.2); CARBON DIOXIDE 16 mmol/L (22-29); CHLORIDE 112 mmol/L (98-107); CREATININE, SERUM 0.69 mg/dL (0.57-1.11); EST GLOMERULAR FILTRATION RATE > 60 ML/MIN (60-); GLUCOSE 148 mg/dL (74-118); POTASSIUM 3.6 mmol/L (3.5-5.1); SODIUM 141 mmol/L (136-145)
[2020-07-18 08:08] LABS: BASOPHILS % 0.2 % (0.0-1.0); EOSINOPHILS # (AUTO) 0.1 (0.0-0.4); EOSINOPHILS % 0.5 % (0.0-6.0); HEMATOCRIT 33.6 % (34.2-44.1); HEMOGLOBIN 11.2 g/dL (12.0-16.0); LYMPHOCYTES # (AUTO) 3.4 (1.0-3.2); LYMPHOCYTES % 25.4 % (18.0-39.1); MEAN CORPUSCULAR HEMOGLOBIN 31.6 pg (28-32); MEAN CORPUSCULAR HGB CONC 33.3 g/dL (31-35); MEAN CORPUSCULAR VOLUME 94.9 fL (81-99); MONOCYTES # (AUTO) 0.7 (0.2-0.8); NEUTROPHILS # (AUTO) 9.1 (2.1-6.9); NEUTROPHILS % 68.6 % (38.7-80.0); PLATELET COUNT 287 x10e3/uL (140-360); RED BLOOD COUNT 3.54 x10e6/uL (3.6-5.1); RED CELL DISTRIBUTION WIDTH 12.3 % (11.7-14.4)
[2020-07-18] MEDS ORDERED: CEFTRIAXONE SOD 1 GM/50 ML BAG IV SCH (09:00)
[2020-07-18] MEDS ORDERED: INSULIN LISPRO 100 UNIT/1 ML 3ML VIAL SQ NR (14:30)
[2020-07-18] MEDS ORDERED: SUMATRIPTAN SUCCINATE 25 MG TAB PO NR (14:30)
[2020-07-18 14:36] LABS: FREE T4 (FREE THYROXINE) 1.13 ng/dL (0.8-1.8); THYROID STIMULATING HORMONE 0.149 uIU/mL (0.350-4.940)
[2020-07-18] MEDS: DEXTROSE 5%/0.45% SOD CHL 1,000 ML IV SCH ×2 (14:45→20:20)
[2020-07-18] MEDS: MORPHINE SULFATE INJ 2 MG/ML SYR IV PRN ×2 (14:46→18:49)
[2020-07-18] MEDS: INSULIN LISPRO 100 UNIT/1 ML 3ML VIAL SQ SCH ×3 (16:30→20:08)
[2020-07-18] MEDS ORDERED: CEPACOL SORE THROAT LOZENGES PO PRN (19:45)
[2020-07-18] MEDS: INSULIN GLARGINE 100 UNITS/ML VIAL SQ SCH (20:20)
[2020-07-19] VITALS: BP 110/70
[2020-07-19] MEDS: MORPHINE SULFATE INJ 2 MG/ML SYR IV PRN ×4 (00:15→17:16)
[2020-07-19] MEDS ORDERED: ONDANSETRON HCL INJ 2MG/ML 2ML 2 MG/ML VIAL IV ONE (02:30)
[2020-07-19 04:00] VITALS: BP 117/77
[2020-07-19 06:50] LABS: BASOPHILS % 0.3 % (0.0-1.0); EOSINOPHILS # (AUTO) 0.1 (0.0-0.4); EOSINOPHILS % 1.1 % (0.0-6.0); HEMATOCRIT 30.4 % (34.2-44.1); HEMOGLOBIN 10.2 g/dL (12.0-16.0); LYMPHOCYTES # (AUTO) 3.3 (1.0-3.2); LYMPHOCYTES % 46.2 % (18.0-39.1); MEAN CORPUSCULAR HEMOGLOBIN 30.9 pg (28-32); MEAN CORPUSCULAR HGB CONC 33.6 g/dL (31-35); MEAN CORPUSCULAR VOLUME 92.1 fL (81-99); MONOCYTES # (AUTO) 0.5 (0.2-0.8); MONOCYTES % 7.3 % (4.4-11.3); NEUTROPHILS # (AUTO) 3.2 (2.1-6.9); PLATELET COUNT 195 x10e3/uL (140-360); RED CELL DISTRIBUTION WIDTH 12.1 % (11.7-14.4)
[2020-07-19 07:19] LABS: ALANINE AMINOTRANSFERASE 10 IU/L (0-55); ALBUMIN 2.9 g/dL (3.5-5.0); ALBUMIN/GLOBULIN RATIO 1.1 (0.8-2.0); ALKALINE PHOSPHATASE 55 IU/L (40-150); ANION GAP 10.6 mmol/L (8-16); BLOOD UREA NITROGEN 6 mg/dL (7-26); BUN/CREATININE RATIO 9 (6-25); CALCIUM 7.8 mg/dL (8.4-10.2); CARBON DIOXIDE 24 mmol/L (22-29); CHLORIDE 110 mmol/L (98-107); CREATININE, SERUM 0.64 mg/dL (0.57-1.11); EST GLOMERULAR FILTRATION RATE > 60 ML/MIN (60-); GLUCOSE 300 mg/dL (74-118); POTASSIUM 3.6 mmol/L (3.5-5.1); SODIUM 141 mmol/L (136-145)
[2020-07-19] MEDS: INSULIN LISPRO 100 UNIT/1 ML 3ML VIAL SQ SCH ×6 (07:30→16:30)
[2020-07-19 08:00] VITALS: BP 105/70
[2020-07-19 08:23] VITALS: BP 105/70
[2020-07-19 12:02] VITALS: BP 102/71
[2020-07-19 16:51] VITALS: BP 114/77
[2020-07-19] MEDS ORDERED: Insulin Glargine SQ (18:25)
[2020-07-19] MEDS ORDERED: Insulin Lispro SQ ×2 (18:25)
[2020-07-19] MEDS ORDERED: INSULIN GLARGINE 100 UNITS/ML VIAL SQ SCH (21:00)
== END 2020-07-19 20:00 | disposition home or self-care (01) | DRG 871 ==
LOC: ER 21:14 → ERHOLD 22:53 → ICU 07-17 01:45 → MED/SURG 07-18 21:27
PROVIDERS: ADMIT Internal Medicine; ATTEND Internal Medicine
DX: A41.9 Sepsis, unspecified organism (principal); E10.10 Type 1 diabetes mellitus with ketoacidosis without coma; J18.9 Pneumonia, unspecified organism; E87.0 Hyperosmolality and hypernatremia; N39.0 Urinary tract infection, site not specified; J98.11 Atelectasis; R11.2 Nausea with vomiting, unspecified; E66.9 Obesity, unspecified; Z68.30 Body mass index [BMI] 30.0-30.9, adult; Z20.822 Contact with and (suspected) exposure to COVID-19; Z90.49 Acquired absence of other specified parts of digestive tract; Z79.84 Long term (current) use of oral hypoglycemic drugs; E87.5 Hyperkalemia; E86.0 Dehydration; F17.200 Nicotine dependence, unspecified, uncomplicated; G43.909 Migraine, unspecified, not intractable, without status migrainosus; N28.9 Disorder of kidney and ureter, unspecified; E10.40 Type 1 diabetes mellitus with diabetic neuropathy, unspecified
CPT/HCPCS: 36415; 51700; 71045; 74176; 80048; 80053; 80061; 81001; 82150; 82805; 82948; 83036; 83605; 83690; 83735; 84100; 84439; 84443; 84702; 85025; 87040; 87086; 93005; 96365; 99284; J0696; J1200; J1815; J1817; J1885; J2270; J2405; J2765; J3010; J7030; J7050; J7799; U0002

== ENCOUNTER 2021-05-11 08:40 | Inpatient (IN) | payer OTHER ==
[~2021-05-11] VITALS: Ht 170.2 cm; Wt 85.7 kg
[~2021-05-11 08:40] MED LIST changes: +Insulin Glargine SQ; +Insulin Lispro SQ
[2021-05-11] MEDS ORDERED: KETOROLAC TROMETHAMINE 30 MG/ML VIAL IV ONE (08:53)
[2021-05-11] MEDS ORDERED: SODIUM CHLORIDE 0.9% 1000ML 1,000 ML IV ONE (08:53)
[2021-05-11] MEDS ORDERED: METOCLOPRAMIDE HCL 10 MG/2ML VIAL IV ONE (09:00)
[2021-05-11] MEDS ORDERED: DIPHENHYDRAMINE HCL 25 MG CAP PO ONE (09:00)
[2021-05-11] MEDS ORDERED: SODIUM CHLORIDE 0.9% 1000ML 1,000 ML IV SCH ×4 (09:00→10:30)
[2021-05-11] MEDS ORDERED: ONDANSETRON HCL INJ 2MG/ML 2ML 2 MG/ML VIAL IV PRN ×2 (09:00→10:30)
[2021-05-11 09:32] LABS: BASOPHILS % 0.1 % (0.0-1.0); HEMATOCRIT 49.7 % (34.2-44.1); HEMOGLOBIN 15.5 g/dL (12.0-16.0); LYMPHOCYTES # (AUTO) 1.1 (1.0-3.2); LYMPHOCYTES % 11.6 % (18.0-39.1); MEAN CORPUSCULAR HEMOGLOBIN 31.4 pg (28-32); MEAN CORPUSCULAR HGB CONC 31.2 g/dL (31-35); MEAN CORPUSCULAR VOLUME 100.6 fL (81-99); MONOCYTES # (AUTO) 0.4 (0.2-0.8); MONOCYTES % 3.9 % (4.4-11.3); NEUTROPHILS # (AUTO) 7.9 (2.1-6.9); NEUTROPHILS % 83.9 % (38.7-80.0); PLATELET COUNT 322 x10e3/uL (140-360); RED BLOOD COUNT 4.94 x10e6/uL (3.6-5.1); RED CELL DISTRIBUTION WIDTH 12.5 % (11.7-14.4)
[2021-05-11 09:36] LABS: CLARITY,URINE CLOUDY (CLEAR); COLOR,URINE YELLOW (YELLOW); KETONES,URINE >=160 (NEGATIVE); LEUKOCYTE ESTERASE ,URINE NEGATIVE (NEGATIVE); NITRITE,URINE NEGATIVE (NEGATIVE); PROTEIN,URINE DIPSTICK 1+ (NEGATIVE); URINE UROBILINOGEN 0.2 mg/dL (0.2 - 1)
[2021-05-11] MEDS ORDERED: DIPHENHYDRAMINE HCL INJ 50 MG/ML VIAL ONE (09:40)
[2021-05-11 09:55] LABS: ALANINE AMINOTRANSFERASE 10 IU/L (0-55); ALBUMIN 4.5 g/dL (3.5-5.0); ALKALINE PHOSPHATASE 103 IU/L (40-150); ANION GAP 27.7 mmol/L (8-16); BLOOD UREA NITROGEN 11 mg/dL (7-26); BUN/CREATININE RATIO 10 (6-25); CALCIUM 9.5 mg/dL (8.4-10.2); CHLORIDE 106 mmol/L (98-107); CREATININE, SERUM 1.09 mg/dL (0.57-1.11); EST GLOMERULAR FILTRATION RATE 58 ML/MIN (60-); LIPASE 12 U/L (8-78); POTASSIUM 4.7 mmol/L (3.5-5.1); SODIUM 137 mmol/L (136-145)
[2021-05-11 09:57] LABS: BACTERIA,URINE MODERATE /HPF; EPITHELIAL CELLS,URINE MODERATE /LPF; RBC,URINE 0-5 /HPF (0-5); YEAST,URINE FEW
[2021-05-11 10:00] LABS: HCG,QUANTITATIVE < 1.20 mIU/mL (0-10)
[2021-05-11 10:01] LABS: CARBON DIOXIDE 8 mmol/L (22-29); GLUCOSE 450 mg/dL (74-118)
[2021-05-11] MEDS ORDERED: INSULIN REGULAR, HUMAN 100 UNIT/1 ML IV ONE (10:15)
[2021-05-11] MEDS ORDERED: MAGNESIUM SULF 1GRAM/DEXTROSE 100 ML IV PRN (10:30)
[2021-05-11] MEDS ORDERED: INSULIN REGULAR, HUMAN 3ML VL 100 UNIT in SODIUM CHLORIDE 0.9% 100 ML IV SCH ×4 (10:30→16:45)
[2021-05-11] MEDS ORDERED: POTASSIUM CHLORIDE 20MEQ/100ML 200 ML IV PRN (10:30)
[2021-05-11] MEDS ORDERED: CEFTRIAXONE 1 GM VIAL IV ONE (10:30)
[2021-05-11] MEDS ORDERED: DEXTROSE 5%/0.45% SOD CHL 1,000 ML IV SCH (10:30)
[2021-05-11] MEDS ORDERED: CEFTRIAXONE 1 GM in SODIUM CHLORIDE 0.9% 50ML 50 ML IV ONE (11:00)
[2021-05-11 12:39] LABS: ABG HCO3 10 mmol/L (22-26); ABG PCO2 22 mmHg (35-45); ABG PH 7.29 (7.35-7.45); ABG PO2 100 mmHg (80-105); ABG TCO2 11
[2021-05-11 13:34] LABS: ANION GAP 17.3 mmol/L (8-16); CALCIUM 8.6 mg/dL (8.4-10.2); CREATININE, SERUM 0.77 mg/dL (0.57-1.11); MAGNESIUM 2.1 MG/DL (1.3-2.1); POTASSIUM 4.3 mmol/L (3.5-5.1)
[2021-05-11 16:45] VITALS: BP 109/66
[2021-05-11] MEDS ORDERED: DEXTROSE 50% SYRINGE 50 ML IV PRN (16:45)
[2021-05-11 17:00] VITALS: BP 109/66
[2021-05-11] MEDS ORDERED: PIPERACILLIN/TAZOBACTAM 3.375 GM VIAL ONE (17:04)
[2021-05-11] MEDS: DEXTROSE 5%/0.45% SOD CHL 1,000 ML IV SCH (17:16)
[2021-05-11] MEDS: OXYCODONE/ACETAMINOPHEN 5-325 1 EACH TABLET PO PRN (17:17)
[2021-05-11] MEDS: PIPERACILLIN/TAZOBACTAM 3.375 GM in SODIUM CHLORIDE 0.9% 50ML 50 ML IV SCH (17:17)
[2021-05-11 17:20] VITALS: BP 109/66
[2021-05-11 20:24] VITALS: BP 108/72
[2021-05-11] MEDS ORDERED: ACETAMINOPHEN 325 MG TAB PO PRN (20:45)
[2021-05-11] MEDS: KETOROLAC TROMETHAMINE 30 MG/ML VIAL IV PRN (21:41)
[2021-05-11] MEDS ORDERED: LACTATED RINGER'S 1,000 ML ONE (22:26)
[2021-05-11 22:39] VITALS: BP 108/72
[2021-05-12] VITALS: BP 94/58
[2021-05-12] MEDS: PIPERACILLIN/TAZOBACTAM 3.375 GM in SODIUM CHLORIDE 0.9% 50ML 50 ML IV SCH ×3 (00:31→12:46)
[2021-05-12] MEDS: OXYCODONE/ACETAMINOPHEN 5-325 1 EACH TABLET PO PRN ×2 (00:31→10:58)
[2021-05-12 01:03] VITALS: BP 94/58
[2021-05-12] MEDS: DEXTROSE 5%/0.45% SOD CHL 1,000 ML IV SCH ×2 (01:23→10:42)
[2021-05-12 05:12] VITALS: BP 98/62
[2021-05-12] MEDS: KETOROLAC TROMETHAMINE 30 MG/ML VIAL IV PRN (05:23)
[2021-05-12 05:28] LABS: ANION GAP 11.9 mmol/L (8-16); CREATININE, SERUM 0.68 mg/dL (0.57-1.11); MAGNESIUM 1.8 MG/DL (1.3-2.1); POTASSIUM 3.9 mmol/L (3.5-5.1)
[2021-05-12] MEDS ORDERED: INSULIN REGULAR, HUMAN 100 UNIT/1 ML ONE (06:08)
[2021-05-12] MEDS ORDERED: SODIUM CHLORIDE 0.9% 100 ML ONE (06:11)
[2021-05-12 07:50] VITALS: BP 98/69
[2021-05-12 08:03] VITALS: BP 98/69
[2021-05-12] MEDS ORDERED: DEXTROSE 50% SYRINGE 50 ML IV PRN (13:15)
[2021-05-12] MEDS ORDERED: INSULIN GLARGINE 100 UNITS/ML VIAL SQ SCH (13:15)
[2021-05-12] MEDS ORDERED: INSULIN LISPRO 100 UNIT/1 ML 3ML VIAL SQ SCH (16:30)
[2021-05-12] MEDS ORDERED: LACTATED RINGER'S 1,000 ML IV SCH (21:45)
== END 2021-05-12 13:54 | disposition left against medical advice (07) | DRG 637 ==
LOC: ER 08:53 → ERHOLD 10:21 → IMCU 16:18
PROVIDERS: ADMIT Internal Medicine; ATTEND Internal Medicine
PROC: 02HV33Z Insertion of Infusion Device into Superior Vena Cava, Percutaneous Approach (ICD-10-PCS; principal; 2021-05-11)
DX: E10.10 Type 1 diabetes mellitus with ketoacidosis without coma (principal); U07.1 COVID-19; L02.214 Cutaneous abscess of groin; R51.9 Headache, unspecified; T38.3X6A Underdosing of insulin and oral hypoglycemic [antidiabetic] drugs, initial encounter; Z79.4 Long term (current) use of insulin; Z88.6 Allergy status to analgesic agent; Z88.5 Allergy status to narcotic agent
CPT/HCPCS: 36415; 36569; 36600; 70450; 71045; 80048; 80053; 81001; 82805; 82948; 83690; 83735; 84702; 85025; 87086; 94799; 96365; 99284; J0696; J1200; J1817; J1885; J2405; J2543; J2765; J7030; J7050; J7121; U0002